=== PATIENT | male | born 1955 | race Caucasian/White ===

== ENCOUNTER 2023-09-13 23:53 | Inpatient (IN) | payer OTHER, MEDICAID, SELFPAY ==
--- NOTE | ~2023-09-13 | CT_ITS ---
EXAMINATION: CT HEAD WITHOUT CONTRAST CLINICAL INFORMATION: Headache. COMPARISON: None. TECHNIQUE: Multidetector volumetric imaging of the head was performed without intravenous contrast material. This CT examination was performed using dose optimization techniques as appropriate, variously including the following: *Automated exposure control *Adjustment of mA and/or kV according to patient size (this includes techniques or standardized protocols for targeted exams where dose is matched to indication/reason for exam; i.e. extremities or head) *Use of iterative reconstruction technique Dose: 715 mGy-cm FINDINGS: There is no evidence of acute intracranial hemorrhage or territorial infarction. No abnormal mass-effect or midline shift is seen. Pyle to white matter differentiation is well preserved. No extra axial fluid collections. There is commensurate enlargement of the ventricles and extraaxial CSF spaces consistent with mild volume loss. A few foci of hypoattenuation in the subcortical and periventricular white matter are most consistent with chronic microangiopathic changes. Calcific atherosclerosis is present within the cavernous segments of the internal carotid arteries. The soft tissues and osseous structures are normal. The sinuses and mastoid air cells are clear. CT/CT head/brain wo IV con IMPRESSION: 1. No acute intracranial pathology. 2. Mild cerebral volume loss and chronic white matter microangiopathy.
--- NOTE | ~2023-09-13 | XR_ITS ---
EXAMINATION: XR CHEST CLINICAL INFORMATION: Shortness of breath COMPARISON: None available. TECHNIQUE: Frontal view of the chest was obtained. FINDINGS: The lungs are hypoinflated. The heart size within normal limits allowing for technique. No significant abnormality is noted involving the heart, lungs, mediastinum, bony thorax or soft tissues. XR/XR chest 1V IMPRESSION: Unremarkable examination.
--- NOTE | ~2023-09-13 | US_ITS ---
EXAMINATION: US VENOUS ULTRASOUND WITH DOPPLER LOWER EXTREMITY, BILATERAL CLINICAL INFORMATION: Edema COMPARISON: None available. TECHNIQUE: Ultrasound of the deep veins is performed from the hip to the calf with compression sonography and color and pulse Doppler assessment. Spectral analysis with color-flow imaging is performed. FINDINGS: RIGHT: There is normal venous compression and respiratory variation and augmented flow. The visualized common femoral vein, superficial femoral vein, and profunda femoral vein and posterior tibial vein shows no evidence of deep venous thrombosis however the popliteal vein and peroneal veins were not imaged limiting evaluation. There is no significant popliteal fossa cyst. LEFT: There is normal venous compression and respiratory variation and augmented flow. The visualized common femoral vein, superficial femoral vein, profunda femoral vein, and popliteal vein, shows no evidence of deep venous thrombosis, however the posterior tibial and peroneal veins were not visualized limiting evaluation. There is no significant popliteal fossa cyst. Few left-sided inguinal nodes are seen measuring up to 2.4 x 0.6 x 1.7 cm maintaining normal hilar architecture not pathologically enlarged by short axis criteria. Subcutaneous edema in the left calf. US/US venous duplex LE BI IMPRESSION: 1. No DVT demonstrated in the visualized bilateral lower extremity veins, however the right popliteal, left posterior tibial and bilateral peroneal veins were not visualized limiting evaluation. 2. Subcutaneous edema in the left calf. 3. Prominent left-sided inguinal nodes not enlarged by short axis criteria. This exam was submitted to the interpreting radiologist for interpretation on 09/18/2023 10:16 AM.
--- NOTE | ~2023-09-13 | CT_ITS ---
EXAMINATION: CT CHEST WITHOUT CONTRAST CLINICAL INFORMATION: Aspiration intubated worsening hypoxia COMPARISON: CT abdomen from 09/14/2023 TECHNIQUE: Multidetector volumetric CT imaging of the chest was done. Axial MIP volume rendering provided. Sagittal and coronal reformatted images were obtained. , Chest radiograph from 09/14/[address] examination was performed using dose optimization techniques as appropriate, variously including the following: *Automated exposure control *Adjustment of mA and/or kV according to patient size (this includes techniques or standardized protocols for targeted exams where dose is matched to indication/reason for exam; i.e. extremities or head) *Use of iterative reconstruction technique DLP: 283.9 mGy-cm FINDINGS: LUNGS/PLEURA: Excessive respiratory motion artifact limits evaluation. Small bilateral pleural effusions with subjacent atelectasis. Central airways are patent. Endotracheal tube terminates approximately 5.2 cm from the level of mari. No pneumothorax. MEDIASTINUM: Heart is not enlarged. No pericardial effusion. Coronary artery calcifications are noted. Aorta is nonaneurysmal and demonstrates atherosclerotic calcifications main pulmonary artery is enlarged suggesting also pulmonary arterial hypertension. A few mildly prominent though nonenlarged mediastinal lymph nodes are visualized. Visualized portions of the thyroid are unremarkable. Enteric tube courses through the thoracic esophagus. AXILLA: No lymphadenopathy. UPPER ABDOMEN: Enteric tube visualized along the gastroesophageal junction, its distal tip is not included in the [id number]. Liver appears enlarged with hepatic steatosis. OSSEOUS STRUCTURES: Unremarkable. CT/CT chest wo IV con IMPRESSION: 1. Excessive respiratory motion artifact limits evaluation. 2. Small bilateral pleural effusions with subjacent atelectasis. 3. Endotracheal tube terminates approximately 5.2 cm from the level of mari. 4. Main pulmonary artery is enlarged suggesting evidence of pulmonary arterial hypertension. 5. Enteric tube visualized along the gastroesophageal junction, its distal tip is not included in the [id number].
--- NOTE | ~2023-09-13 | XR_ITS ---
EXAMINATION: PORTABLE CHEST 1 VIEW CLINICAL INFORMATION: s/p ett placement. COMPARISON: 09/14/2023. TECHNIQUE: Portable frontal view of the chest was obtained. FINDINGS: Patient is hypoexpanded and rotated to the left. Endotracheal tube tip approximately 4 cm above the mari. Nasogastric tube below the diaphragm with the tip likely overlying the antrum of the stomach. Lungs are hypoexpanded with basilar markings more likely due to atelectasis. Central vascular prominence likely in part related to the degree of hypoexpansion. No pneumothorax. XR/XR chest 1V IMPRESSION: Intubated. Hypoexpanded. Basilar markings more likely due to atelectasis in part related to the degree of hypoexpansion.
--- NOTE | ~2023-09-13 | CT_ITS ---
EXAMINATION: CT ABDOMEN AND PELVIS WITH CONTRAST CLINICAL INFORMATION: Right upper quadrant/epigastric pain COMPARISON: None available. TECHNIQUE: Multidetector volumetric images were obtained from the superior aspect of the liver through the pubic symphysis following administration 100 mL of Omnipaque 350 intravenous contrast. Sagittal and coronal reformatted images were obtained on the technologist's workstation. Oral contrast: No This CT examination was performed using dose optimization techniques as appropriate, variously including the following: *Automated exposure control *Adjustment of mA and/or kV according to patient size (this includes techniques or standardized protocols for targeted exams where dose is matched to indication/reason for exam; i.e. extremities or head) *Use of iterative reconstruction technique DLP: 1449 mGy-cm FINDINGS: LUNG BASES: Coronary calcium is present Some bibasilar atelectasis is seen. Calcified granuloma is seen in the right middle lobe. LIVER, GALLBLADDER, AND BILIARY TREE: The liver is enlarged measuring 18.5 cm in cephalocaudad dimension with marked hepatic steatosis. There is focal fatty sparing seen around the gallbladder and meliza hepatis.. No concerning focal hepatic lesion or biliary ductal dilatation is present. The gallbladder is unremarkable with no evidence of radiopaque gallstones, gallbladder wall thickening, or obvious pericholecystic inflammatory changes. PANCREAS: There is fatty infiltration of the pancreas. No evidence of pancreatitis, ductal dilatation, calcifications or masses. SPLEEN: Unremarkable. ADRENAL GLANDS: Unremarkable. KIDNEYS AND URETERS: The kidneys are normal in size, shape, and attenuation. No hydronephrosis, hydroureter, or calculi seen. No perinephric stranding. BLADDER: Unremarkable. GASTROINTESTINAL TRACT: The small and large bowel are unremarkable. The appendix is unremarkable. ABDOMINAL WALL: No significant hernia is appreciated. Some tiny inguinal hernias are seen containing only fat. LYMPH NODES: Normal. VASCULAR: Unremarkable. PELVIC VISCERA: The prostate and seminal vesicles are unremarkable. OSSEOUS STRUCTURES: Biconvex thoracolumbar scoliosis is present along with moderate to marked degenerative changes throughout the spine. There is osseous fusion of T8 and T9. No bony destructive lesions or acute fractures seen. CT/CT abdomen pelvis w IV con IMPRESSION: 1. A cause for the patient's right upper quadrant pain has not been found. 2. Incidental note made of an enlarged fatty liver, fatty infiltration of the pancreas, scoliosis and degenerative changes in the spine. Fleischner guidelines were followed.
--- NOTE | ~2023-09-13 | CT_ITS ---
EXAMINATION: CT HEAD WITHOUT CONTRAST CLINICAL INFORMATION: Encephalopathy COMPARISON: CT head from 09/14/2023 TECHNIQUE: Contiguous axial imaging was performed from the skull base to vertex without intravenous administration of contrast. This CT examination was performed using dose optimization techniques as appropriate, variously including the following: *Automated exposure control *Adjustment of mA and/or kV according to patient size (this includes techniques or standardized protocols for targeted exams where dose is matched to indication/reason for exam; i.e. extremities or head) *Use of iterative reconstruction technique DLP: 891.7 mGy-cm FINDINGS: There is no evidence of acute intracranial hemorrhage or territorial infarction. Chronic white matter small vessel ischemic changes. Cerebral atrophy with commensurate ventricular changes. No abnormal mass effect or midline shift is seen. Pyle to white matter differentiation is well preserved. No extra-axial fluid collections are identified. The ventricles are normal in size. There is no abnormal attenuation within the brain parenchyma. The osseous structures and soft tissues are normal. The mastoid air cells and visualized portions of the paranasal sinuses are well aerated. Partially visualized endotracheal and enteric tubes. CT/CT head/brain wo IV con IMPRESSION: 1. No acute intracranial pathology. 2. Chronic white matter small vessel ischemic changes.
--- NOTE | 2023-09-13 23:58 | ECG_ITS ---
Test Reason : ETOH Blood Pressure : / mmHG Vent. Rate : 100 BPM Atrial Rate : 100 BPM P-R Int : 178 ms QRS Dur : 070 ms QT Int : 346 ms P-R-T Axes : -03 019 036 degrees QTc Int : 446 ms Sinus rhythm with Premature atrial complexes Possible Anterior infarct , age undetermined Abnormal ECG No previous ECGs available Referred By: Joana Spangler Electronically Signed By:KATRIN MERRITT MD
[2023-09-14] VITALS (12 sets, daily range): BP systolic 97–204; BP diastolic 47–104; PULSE 98–110; RESP 14–35; TEMP 36.3–37.1; O2SAT 92–98; BMI 44.3
--- NOTE | 2023-09-14 00:42 | PC.NURSE ---
Patient BIB [facility] from [facility]. The staff contacted EMS d/t patient being intoxicated. Patient has history of TBI, PTSD, Panic Disorder. Patient admits drinking 2 sleeves of fire balls every day. Patient reports he was not able to sleep for 5 days. Patient reports Ativan helps him to relax and sleep. Patient reports not taking prescribed home medications. Patient uses CPAP at night. Patient denies SI/HI. Patient changed into a hospital attire with assistance of security, belongings placed into locker 12. EKG completed and reviewed by MD. Patient placed on alarm security or surveillance monitor. VSS.
--- NOTE | 2023-09-14 01:02 | ED.ALCOHOL ---
HPI - Alcohol General Chief Complaint: ETOH/Substance Use Stated Complaint: ETOH? Mental Health Eval Time Seen by Provider: 09/14/23 00:55 Source: patient and EMS Mode of arrival: EMS Limitations: other (Intoxicated) History of Present Illness ED Provider: Dr. Sindy Yi HPI narrative: Patient comes to the emergency room by ambulance. Patient was found in the lobby of his housing facility intoxicated. Patient admits that he drinks to sleeves of fireball is a every day. Patient reports that he has not been able to sleep for several days. Unclear what patient is not taking his prescribed medications patient denies SI or HI. Related Data Allergies Allergy/AdvReac Type Severity Reaction Status Date / Time No Known Allergies Allergy Verified 09/14/23 00:15 Review of Systems Review of Systems: Constitutional : No Weight loss, No Fever, No Chills, No Night Sweats, No Fatigue, No Malaise ENT/Mouth : No Hearing loss, No Ear Pain, No Nasal Congestion, No Sinus Pain, No Hoarseness, No sore throat, No Rhinorrhea, No Swallowing Difficulty Eyes: No Eye Pain, No Swelling, No Redness, No Foreign Body, No Discharge, No Vision Changes Cardiovascular : No Chest Pain, No SOB, No Dyspnea on Exertion, No Orthopnea, No Edema, No Palpitations Respiratory : No Cough, No Sputum, No Wheezing, No Smoke Exposure, No Dyspnea Gastrointestinal : No Nausea, No Vomiting, No Diarrhea, No Constipation, No abdominal Pain, No Hematochezia, No Melena Genitourinary : no irregular bleeding, No Dysuria, No Urinary Frequency, No Hematuria, No Urinary Incontinence, No Urgency, No Flank Pain, No Urinary Flow Changes, No Hesitancy Musculoskeletal : No joint pain, No Myalgias, No Joint Swelling Skin : No Skin Lesions, No rash Neuro : No Weakness, No Numbness, No Paresthesias, No Loss of Consciousness, No Dizziness, No Headache Psych : Complaining of insomnia, admits to alcohol drinking daily, denies SI or HI Heme/Lymph: No Bruising, No Bleeding,No Lymphadenopathy Endocrine : No Polyuria, No Polydipsia, No Temperature Intolerance PMF Past Medical History Medical History Panic disorder Traumatic brain injury ETOH abuse Social History Social History Smoked in Last 30 Days: Yes Use of substances other than those prescribed or required for medical reasons: No Do you have a plan to hurt others: No Plan Physical Exam ED Vital Signs: Vital Signs - 24 hr 09/14/23 00:14 Temperature 98.2 F Pulse Rate 99 Respiratory Rate 16 Blood Pressure 144/92 H Pulse Oximetry 95 Oxygen Delivery Method Room Air BMI result Body Mass Index 44.3 Const Other: Appearance: Alert. Oriented X2, seems intoxicated Eyes: Pupils equal, round and reactive to light. ENT: Pharynx normal. Neck: Normal inspection. Neck supple. No lymph nodes noted. No crepitus CVS: Normal heart rate and rhythm. Pulses normal. Normal S1 and S2 Respiratory: No respiratory distress. Breath sounds normal. No Wheezing. No rales Abdomen: Soft and nontender. No rigidity. No distention. Skin: Skin warm and dry. Normal skin color. Normal skin turgor. Extremities: No lower extremity edema. No Lacerations. No Rash Neuro: Oriented X 3. No motor deficit. No sensory deficit. Moving all extremities. No slurred speech. CN 2 through 12 grossly intact Psych: calm, cooperative, anxious Course Course Course Narrative: -patient seems intoxicated -head CT and labs pending -metabolize to freedom, then reassess if patient needs to be seen by the care team -sign-out given to my colleague Dr. Peterson Medical Decision Making Medical Decision Making [facility] Narrative: -my interpretation of head CT: No intracranial bleed. Radiology report pending -all of patient's labs pending -radiology report, no intracranial bleed -patient requesting 1 tablet of Ativan and Tylenol -plan: Follow-up with labs, metabolize to freedom, likely discharge Differential Diagnosis Differential Diagnoses: The differential diagnosis associated with the presentation includes (Alcohol intoxication, polysubstance abuse) Admission/Observation Consideration of admission/observation: Escalation of care including admission/observation considered (Patient is under physician observation waiting to become sober) Independent Interpretation I performed an independent interpretation of an: CT Scan Radiology Impression Discussion of test interpretation with radiology: I have reviewed the radiologist's reading. Radiologist Impression: FINDINGS: There is no evidence of acute intracranial hemorrhage or territorial infarction. No abnormal mass-effect or midline shift is seen. Pyle to white matter differentiation is well preserved. No extra axial fluid collections. There is commensurate enlargement of the ventricles and extraaxial CSF spaces consistent with mild volume loss. A few foci of hypoattenuation in the subcortical and periventricular white matter are most consistent with chronic microangiopathic changes. Calcific atherosclerosis is present within the cavernous segments of the internal carotid arteries. The soft tissues and osseous structures are normal. The sinuses and mastoid air cells are clear. CT/CT head/brain wo IV con IMPRESSION: 1. No acute intracranial pathology. 2. Mild cerebral volume loss and chronic white matter microangiopathy. Discharge Plan Discharge Clinical Impression: Alcoholic intoxication Patient Disposition: Still a Patient
[2023-09-14] MEDS: LORazepam 1 MG TABLET PO (01:55)
[2023-09-14] MEDS: Acetaminophen 325 MG TABLET 975 MG PO (01:55)
[2023-09-14 01:56] LABS: MANUAL DIFF FLAG NO
[2023-09-14 01:58] LABS: Basophils Absolute Auto 0.1 X10*3/uL (0.0-0.2); Basophils Percent Auto 1.5 % (0-2); Eosinophils Absolute Auto 0.1 X10*3/uL (0.0-0.4); Eosinophils Percent Auto 3.1 % (0-4); Hematocrit 41.7 % (42.0-52.0); Hemoglobin 14.4 g/dl (14.0-18.0); Imm Gran Abs Auto 0.03 X10*3/uL (0.00-0.03); Imm Gran Pct Auto 0.8 % (0.0-0.4); Lymphocytes Absolute Auto 2.3 X10*3/uL (1.2-4.9); Lymphocytes Percent Auto 57.8 % (20-40); Mean Corpuscular HGB Conc 34.5 g/dl (31.0-36.0); Mean Corpuscular Hemoglobin 30.1 pg (27.0-33.0); Mean Corpuscular Volume 87.1 fL (80.0-98.0); Mean Platelet Volume 9.5 fL (9.4-12.4); Monocytes Absolute Auto 0.4 X10*3/uL (0.1-1.2); Monocytes Percent Auto 9.4 % (2-11); Neutrophils Absolute Auto 1.1 x10*3/uL (2.0-8.3); Neutrophils Percent Auto 27.4 % (45-73); Platelet Count 241 X10*3/uL (160-400); Red Blood Count 4.79 X10*6/uL (4.60-5.80); Red Cell Distribution Width 15.1 % (11.0-16.0); White Blood Count 3.9 X10*3/uL (4.8-10.8)
--- NOTE | 2023-09-14 01:58 | PC.NURSE ---
Patient medicated per MAR, patient takes medications whole with water, no trouble swallowing noted.1:1 sitter at bedside. Plan of care ongoing.
[2023-09-14 02:08] LABS: Amphetamine Screen Urine Not Detected (Not Detect); Barbiturates, Urine POSITIVE (Not Detect); Benzodiazepines Screen Urine Not Detected (Not Detect); Buprenorphine Scr Positive (Not Detect); Cannabinoid Screen Urine Not Detected (Not Detect); Cocaine Screen Urine Not Detected (Not Detect); Fentanyl, urine Not Detected (Not Detect); Methadone Screen, Urine Not Detected (Not Detect); Opiate Screen Urine Not Detected (Not Detect); Oxycodone Screen Urine Not Detected (Not Detect); Phencyclidine Screen Urine Not Detected (Not Detect)
[2023-09-14 02:14] LABS: Alanine Aminotransferase 131 U/L (0-40); Albumin Level 3.4 g/dL (3.5-5.0); Alkaline Phosphatase 197 U/L (39-117); Anion Gap 18 (12-20); Aspartate Amino Transferase 184 U/L (5-37); Bilirubin Total 0.5 mg/dL (0.0-1.0); Blood Urea Nitrogen 3 mg/dL (9-16); Calcium 8.4 mg/dL (8.4-10.2); Carbon Dioxide 25 mmol/L (22-29); Chloride 107 mmol/L (96-108); Creatinine Clr Calc Pharmacy 150.4; Estimated Glomerular Filt Rate > 60; Ethanol 259 mg/dL; Glucose Random 105 mg/dL (60-115); Magnesium 1.8 mg/dL (1.6-2.6); Potassium 3.7 mmol/L (3.3-5.1); Sodium 146 mmol/L (135-145); Total Protein 6.5 g/dL (6.5-8.0)
[2023-09-14] MEDS: Omeprazole 40 MG CAPSULE.DR PO (03:34)
[2023-09-14] MEDS: Magnesium Hydrox/Alum Hydrox 30 ML ORAL.SUSP PO (03:34)
[2023-09-14] MEDS: LORazepam 1 MG TABLET 2 MG PO ×2 (04:36→08:37)
[2023-09-14] MEDS: Thiamine HCL 100 MG TABLET PO (04:39)
--- NOTE | 2023-09-14 09:00 | PC.NURSE ---
Assumed care for pt @ 700. Pt A&O4. Pt c/o abdominal pain, headache, cold sweats with chills, overall not feeling good . Remains on a CIWA scale. Score 0f 16 @8am CIWA. 2mg PO PRN Ativan Given.
--- NOTE | 2023-09-14 09:31 | ECG_ITS ---
Test Reason : CHEST PAIN Blood Pressure : / mmHG Vent. Rate : 105 BPM Atrial Rate : 105 BPM P-R Int : 154 ms QRS Dur : 072 ms QT Int : 342 ms P-R-T Axes : 034 004 027 degrees QTc Int : 452 ms Sinus tachycardia Premature atrial complexes Cannot rule out Anterior infarct (cited on or before 14-SEP-2023) Abnormal ECG When compared with ECG of 14-SEP-2023 00:11, No significant changes seen Referred By: Andria Clifton Electronically Signed By:JANUSZ GARCIA
[2023-09-14 09:40] LABS: Lipase 12 U/L (8-78)
[2023-09-14] MEDS: LORazepam 2 MG/ML VIAL IVPUSH (09:42)
[2023-09-14] MEDS: 0.9 % Sodium Chloride 1,000 ML 999 ML IV (09:48)
[2023-09-14 10:00] LABS: ABG Base Excess 2.6 mmol/L; ABG HCO3 25 mmol/L (22-26); ABG pCO2 31 mmHg (32-45); ABG pO2 81 mmHg (83-108)
[2023-09-14] MEDS: iohexoL 350 MG/ML 100 ML INFUS..BTL IV (10:11)
[2023-09-14] MEDS: Albuterol Sulfate 2.5 MG, Albuterol/Iprat 2.5/0.5MG 3 ML 3 ML INHALE (10:31)
[2023-09-14] MEDS: PHENobarbitaL sodium 130 MG/ML IM ONCE 274 MG IM (10:59)
--- NOTE | 2023-09-14 11:32 | PM.IMHP ---
History of Present Illness Date of Service: 09/14/23 Chief Complaint: alcohol intoxication, withdrawal 67 year old male with TBI, PTSD, panic disorder who drinks rather heavily up to 2 sleeve of fire balls a day. He was found on the floor at the [place] of his house, intoxiciated. He reports 5 days of insomnia, and reporting some abdominal pain. In the ED noted to be tachycardia, tremoulous and scoring greater than 15 on CIWA score. Also noted to wheezing. He has been given ativan ON LICENSE OF [facility] Medical History Panic disorder Traumatic brain injury ETOH abuse Social History Household Members: None Housing: Condominium Do you presently have visiting nurse or other home services: No Patient Tobacco Use Status: Current everyday Tobacco user Tobacco use type: Cigarette Cigarettes Per Day: 20 Smoked in Last 30 Days: Yes Patient Interested in Nicotine Replacement: No Use of substances other than those prescribed or required for medical reasons: Refusing to respond Currently Displaying Signs/Symptoms of Drug Intoxication Withdrawal: Yes Have you been hit, kicked, punched, or otherwise hurt by someone within the past year? If so, by whom?: No Is there a partner from a previous relationship who is making you feel unsafe now?: No Are you made to feel afraid or neglected: No Advance Directives: No Advance Directives Information Provided: No Do you have a plan to hurt others: No Plan Meds Allergies Allergy/AdvReac Type Severity Reaction Status Date / Time No Known Allergies Allergy Verified 09/14/23 00:15 Active Medications: Current Medications Lorazepam (Lorazepam 1 Mg Tablet) 2 mg PO RQ4H WHILE AWAKE PRN PRN Reason: Alcohol Withdrawal Pharmacy Consult (Consult Rx Etoh Phenob Im/Po) 1 each MISCELLANE ONCE PRN; Protocol PRN Reason: Consult order Phenobarbital (Phenobarbital 15 Mg Tablet) 45 mg PO BID [facility]; Protocol Stop: 09/16/23 21:01 Phenobarbital (Phenobarbital 30 Mg Tablet) 30 mg PO BID [facility]; Protocol Stop: 09/18/23 21:01 Phenobarbital (Phenobarbital 30 Mg Tablet) 30 mg PO DAILY [facility]; Protocol Stop: 09/20/23 09:01 Phenobarbital Sodium (Phenobarbital Sodium 130 Mg/Ml Vial Im Q3hx2) 205 mg IM Q3H [facility]; Protocol Stop: 09/14/23 15:31 Home Medications ?Medication ?Instructions ?Recorded ?Confirmed ?Last Taken ?Type albuterol sulfate 90 mcg/actuation 2 puff inhalation Q6H PRN 09/14/23 09/14/23 Unknown History aerosol inhaler Shortness Of Breath Or Wheezing buprenorphine 8 mg-naloxone 2 mg 1 tab sublingual TID 09/14/23 09/14/23 Unknown History sublingual tablet divalproex 500 mg tablet,extended 2,000 mg PO BEDTIME 09/14/23 09/14/23 Unknown History release 24 hr fluticasone 500 mcg-salmeterol 50 1 inh inhalation BID 09/14/23 09/14/23 Unknown History mcg/dose blistr powdr for inhalation (Advair Diskus) folic acid 1 mg tablet 1 mg PO DAILY 09/14/23 09/14/23 Unknown History guaifenesin 600 mg tablet, 600 mg PO BID 09/14/23 09/14/23 Unknown History extended release 12 hr hydroxyzine HCl 50 mg tablet 50 mg PO TID PRN Anxiety 09/14/23 09/14/23 Unknown History losartan 100 mg tablet 100 mg PO DAILY 09/14/23 09/14/23 Unknown History melatonin 5 mg tablet 5 mg PO BEDTIME PRN Sleep 09/14/23 09/14/23 Unknown History mirtazapine 7.5 mg tablet 7.5 mg PO BEDTIME 09/14/23 09/14/23 Unknown History multivitamin 1 tab PO DAILY 09/14/23 09/14/23 Unknown History naloxone 4 mg/actuation nasal spray 4 mg intranasal Q3M PRN Opioid 09/14/23 09/14/23 Unknown History Overdose paroxetine HCl 20 mg tablet 20 mg PO BEDTIME 09/14/23 09/14/23 Unknown History pyridoxine (vitamin B6) 50 mg 50 mg PO DAILY 09/14/23 09/14/23 Unknown History tablet sennosides 8.6 mg tablet (senna) 17.2 mg PO BEDTIME 09/14/23 09/14/23 Unknown History thiamine HCl (vitamin B1) 100 mg 100 mg PO DAILY 09/14/23 09/14/23 Unknown History tablet tirzepatide 2.5 mg/0.5 mL 2.5 mg subcut QWEEK 09/14/23 09/14/23 Unknown History subcutaneous pen injector Physical Exam Vital Signs and Narrative: Vital Signs: Last Vital Signs Temp 98.7 F 09/14/23 08:35 Pulse 103 H 09/14/23 10:31 Resp 32 H 09/14/23 10:31 BP 153/72 H 09/14/23 10:23 Pulse Ox 95 09/14/23 10:23 O2 Del Method Nasal Cannula 09/14/23 10:23 O2 Flow Rate 2 09/14/23 10:23 BMI result Body Mass Index 44.3 Results Labs 09/14/23 01:51 09/15/23 08:12 Labs: Laboratory Results - last 24 hr 09/14/23 09/14/23 09/14/23 01:44 01:51 09:49 MCV 87.1 MCH 30.1 MCHC 34.5 RDW 15.1 Plt Count 241 MPV 9.5 Immature Gran % (Auto) 0.8 H Neut % (Auto) 27.4 L Lymph % (Auto) 57.8 H Throckmorton % (Auto) 9.4 Eos % (Auto) 3.1 Baso % (Auto) 1.5 Lymph # (Auto) 2.3 Throckmorton # (Auto) 0.4 Eos # (Auto) 0.1 Baso # (Auto) 0.1 Abs Immat Gran (auto) 0.03 Absolute Neuts (auto) 1.1 L Absolute Nucleated RBC 0.000 Nucleated RBC % (auto) 0.0 O2 Saturation 98.0 ABG pH at Pt Temp 7.50 H ABG pCO2 at Pt Temp 31 L ABG pO2 at Pt Temp 81 L ABG HCO3 25 ABG Base Excess (Actual) 2.6 Anion Gap 18 Estim Creat Clear Calc 150.4 Estimated GFR > 60 Random Glucose 105 Calcium 8.4 Magnesium 1.8 Total Bilirubin 0.5 AST 184 H ALT 131 H Alkaline Phosphatase 197 H Troponin I High Sens 5.0 Total Protein 6.5 Albumin 3.4 L Lipase 12 Urine Opiates Screen Not Detected Ur Buprenorphine Scrn Positive H Ur Oxycodone Screen Not Detected Urine Methadone Screen Not Detected Urine Fentanyl Screen Not Detected Ur Barbiturates Screen POSITIVE H Ur Phencyclidine Scrn Not Detected Ur Amphetamines Screen Not Detected U Benzodiazepines Scrn Not Detected Urine Cocaine Screen Not Detected U Marijuana (THC) Screen Not Detected Ethyl Alcohol 259 Imaging Radiologist's Impressions: Impressions Head CT 09/14/23 01:11 IMPRESSION: 1. No acute intracranial pathology. 2. Mild cerebral volume loss and chronic white matter microangiopathy. Abdomen/Pelvis CT 09/14/23 10:15 IMPRESSION: 1. A cause for the patient's right upper quadrant pain has not been found. 2. Incidental note made of an enlarged fatty liver, fatty infiltration of the pancreas, scoliosis and degenerative changes in the spine. Fleischner guidelines were followed. Chest X-Ray 09/14/23 10:15 IMPRESSION: Unremarkable examination. Assessment and Plan (1) Alcohol withdrawal: Status: Acute Plan 67 year old male with PTSD, panic disorder, alcohol dpendency here with Alcohol withdrawal--treat with phenobarbital, hydrate, thiamine and folate suplement, addiction med consult. Need close monitor and if decompensate will need to be trasnfer to ICU Abdominal pain--likely gastritis, CT shows no acute findin, symptomatic treatment pepcid and pain medication prn Panic disorder/anxiety, no standing meds, hydroxyzone morbidid obesity--weight loss advised copd Quality Stroke Does the patient have a stroke diagnosis?: No VTE Prior VTE?: No VTE Risk Level:: Medical - moderate - high VTE Device Contraindication: Treatment Not Indicated VTE Drug Contraindication: N/A - Med Ordered
[2023-09-14] MEDS: ondansetron HCL 4 MG/2 ML VIAL IVPUSH (13:14)
[2023-09-14] MEDS: methylPREDNISolone Sod Succ 125 MG/2 ML VIAL IVPUSH (13:14)
[2023-09-14] MEDS: PHENobarbitaL sodium 130 MG/ML VIAL IM Q3Hx2 205 MG IM ×2 (13:14→16:24)
[2023-09-14] MEDS: Calcium Carbonate 750 MG TAB.CHEW PO (14:04)
[2023-09-14] MEDS: Acetaminophen 325 MG TABLET 650 MG PO (14:05)
--- NOTE | 2023-09-14 14:05 | PC.NURSE ---
pt c/o 10/24 abdominal pain. Pt requesting tylenol, a heat pack, and position change at this time for pain management.
--- NOTE | 2023-09-14 15:08 | PHA.MEDREC ---
Pharmacy Consult ? Medication Reconciliation Pharmacy has completed the medication reconciliation. Called [place] for List.
[2023-09-14] MEDS: hydrOXYzine HCL 25 MG TABLET PO (15:15)
[2023-09-14] MEDS: Folic Acid 1 MG TABLET PO (15:15)
[2023-09-14] MEDS: Thiamine HCL 500 MG in 0.9 % Sodium Chloride 100 ML 208 MG IV (16:25)
--- NOTE | 2023-09-14 16:56 | MHC.EDTECH ---
Assisted patient to commode twice, first time he only was able to urinate, second time he had a loose stool bowl movement and urinated.
[2023-09-14] MEDS: Mirtazapine 7.5 MG TABLET PO (20:35)
[2023-09-14] MEDS: guaiFENesin LA 600 MG TAB.ER.12H PO (20:35)
[2023-09-14] MEDS: PARoxetine HCL 20 MG TABLET PO (20:36)
[2023-09-14] MEDS: Divalproex Sodium ER 500 MG TAB.ER.24H 2000 MG PO (20:36)
[2023-09-14] MEDS: PHENobarbitaL sodium 130 MG/ML VIAL IM (20:43)
[2023-09-14] MEDS: Lactated Ringers 1,000 ML 125 ML IVCONT (20:51)
[2023-09-14] MEDS: Buprenorphine/Naloxone 8/2 mg TAB.SUBL 1 TAB SUBLINGUAL (22:24)
[2023-09-15] VITALS (9 sets, daily range): BP systolic 134–174; BP diastolic 70–95; PULSE 88–98; RESP 20; TEMP 36.1–36.5; O2SAT 90–94
[2023-09-15] MEDS: LORazepam 2 MG/ML VIAL IVPUSH ×2 (00:11→21:14)
[2023-09-15] MEDS: Thiamine HCL 500 MG in 0.9 % Sodium Chloride 100 ML 208 MG IV ×2 (02:39→15:09)
[2023-09-15] MEDS: Lactated Ringers 1,000 ML 125 ML IVCONT ×2 (04:51→13:23)
[2023-09-15 08:42] LABS: Anion Gap 19 (12-20); Blood Urea Nitrogen 6 mg/dL (9-16); Calcium 8.7 mg/dL (8.4-10.2); Carbon Dioxide 22 mmol/L (22-29); Chloride 104 mmol/L (96-108); Creatinine Clr Calc Pharmacy 139.7; Estimated Glomerular Filt Rate > 60; Glucose Random 105 mg/dL (60-115); Potassium 4.5 mmol/L (3.3-5.1); Sodium 140 mmol/L (135-145)
[2023-09-15] MEDS: Multivitamin TABLET 1 TAB PO (08:58)
[2023-09-15] MEDS: Pyridoxine HCl (Vitamin B6) 50 MG TABLET PO (08:58)
[2023-09-15] MEDS: guaiFENesin LA 600 MG TAB.ER.12H PO ×2 (08:58→19:58)
[2023-09-15] MEDS: Thiamine HCL 100 MG TABLET PO (08:58)
[2023-09-15] MEDS: Buprenorphine/Naloxone 8/2 mg TAB.SUBL 1 TAB SUBLINGUAL ×3 (08:59→19:58)
[2023-09-15] MEDS: Folic Acid 1 MG TABLET PO (08:59)
[2023-09-15] MEDS: PHENobarbitaL 15 MG TABLET 45 MG PO ×2 (08:59→19:58)
[2023-09-15] MEDS: Losartan Potassium 50 MG TABLET 100 MG PO (08:59)
[2023-09-15] MEDS: 0.9 % Sodium Chloride Flush 3 ML SYRINGE IVFLUSH ×3 (08:59→20:02)
[2023-09-15] MEDS: hydrOXYzine HCL 50 MG TABLET PO (13:22)
[2023-09-15] MEDS: Enoxaparin Sodium 40 MG/0.4 ML SYRINGE SUBCUT (13:24)
--- NOTE | 2023-09-15 14:16 | HO.PM.IMPN ---
Subjective Subjective Date of Service: 09/15/23 Interval History: f/u on alcohol withdrawal, Seemed fairly calm this morning without agitation. But later was scoring high on ciwa and anxiour, O2 around 90 on room air but no c/o sob Physical Exam Vital Signs: Vital Signs: Last Vital Signs Temp 97.5 F 09/15/23 12:00 Pulse 92 09/15/23 12:00 Resp 20 09/15/23 12:00 BP 149/89 H 09/15/23 12:00 Pulse Ox 90 L 09/15/23 12:00 O2 Del Method Room Air 09/15/23 12:00 O2 Flow Rate 2 09/14/23 11:30 BMI result Body Mass Index 44.3 Objective Data Active Medications Acetaminophen (Acetaminophen 325 Mg Tablet) 650 mg PO Q6H PRN PRN Reason: Pain, Mild (Pain Scale 1-3), fever or headache Last Admin: 09/14/23 14:05 Dose: 650 mg Documented By: ELIZABETH Albuterol Sulfate (Albuterol Sulfate 90 Mcg 8 Gm Inhaler) 2 puff INHALE Q6H PRN PRN Reason: Shortness Of Breath Or Wheezing Buprenorphine/Naloxone (Buprenorphine/Naloxone 8/2 Mg Tab.Subl) 1 tab SUBLINGUAL TID [facility] Last Admin: 09/15/23 08:59 Dose: 1 tab Documented By: LINDSEY Calcium Carbonate (Calcium Carbonate 750 Mg Tab.Chew) 750 mg PO Q4H PRN PRN Reason: Heartburn Last Admin: 09/14/23 14:04 Dose: 750 mg Documented By: ELIZABETH Divalproex Sodium (Divalproex Sodium Er 500 Mg Tab.Er.24h) 2,000 mg PO BEDTIME [facility] Last Admin: 09/14/23 20:36 Dose: 2,000 mg Documented By: MEGHA Enoxaparin Sodium (Enoxaparin Sodium 40 Mg/0.4 Ml Syringe) 40 mg SUBCUT Q24H [facility] Last Admin: 09/15/23 13:24 Dose: 40 mg Documented By: LINDSEY Fluticasone/Vilanterol (Fluticasone/Vilanterol 200/25 Blst.W.Dev) 1 puff INHALE RDAILY [facility] Last Admin: 09/15/23 11:06 Dose: Not Given Documented By: JV Non-Admin Reason: Med Not Available Comments: pharmacy called Folic Acid (Folic Acid 1 Mg Tablet) 1 mg PO DAILY [facility] Stop: 09/16/23 09:01 Last Admin: 09/15/23 08:59 Dose: 1 mg Documented By: LINDSEY Guaifenesin (Guaifenesin La 600 Mg Tab.Er.12h) 600 mg PO BID [facility] Last Admin: 09/15/23 08:58 Dose: 600 mg Documented By: LINDSEY Hydroxyzine HCl (Hydroxyzine Hcl 25 Mg Tablet) 25 mg PO Q6H PRN PRN Reason: anxiety/restlessness Last Admin: 09/14/23 15:15 Dose: 25 mg Documented By: ELIZABETH Hydroxyzine HCl (Hydroxyzine Hcl 50 Mg Tablet) 50 mg PO TID PRN PRN Reason: Anxiety Last Admin: 09/15/23 13:22 Dose: 50 mg Documented By: LINDSEY Lactated Ringer's (Lr) 1,000 mls @ 125 mls/hr IVCONT .Q8H [facility] Last Admin: 09/15/23 13:23 Dose: 125 mls/hr Documented By: LINDSEY Thiamine HCl 500 mg/ Sodium (Chloride) 105 mls @ 208 mls/hr IV Q12H [facility] Last Infusion: 09/15/23 03:12 Dose: Infused Documented By: MEGHA Levalbuterol HCl (Levalbuterol Hcl 1.25 Mg/3 Ml Vial.Neb) 1.25 mg INHALE Q4H PRN PRN Reason: Shortness of Breath/Wheezing Losartan Potassium (Losartan Potassium 50 Mg Tablet) 100 mg PO DAILY [facility]; Protocol Last Admin: 09/15/23 08:59 Dose: 100 mg Documented By: LINDSEY Magnesium Hydroxide (Milk Of Magnesia 30 Ml Oral.Susp) 30 ml PO DAILY PRN PRN Reason: Constipation Melatonin (Melatonin 3 Mg Tablet) 6 mg PO BEDTIME PRN PRN Reason: Insomnia Mirtazapine (Mirtazapine 7.5 Mg Tablet) 7.5 mg PO BEDTIME [facility] Last Admin: 09/14/23 20:35 Dose: 7.5 mg Documented By: MEGHA Multivitamins/Vitamin C (Multivitamin Tablet) 1 tab PO DAILY [facility] Last Admin: 09/15/23 08:58 Dose: 1 tab Documented By: LINDSEY Paroxetine HCl (Paroxetine Hcl 20 Mg Tablet) 20 mg PO BEDTIME [facility] Last Admin: 09/14/23 20:36 Dose: 20 mg Documented By: MEGHA Pharmacy Consult (Consult Rx Etoh Phenob Im/Po) 1 each MISCELLANE ONCE PRN; Protocol PRN Reason: Consult order Phenobarbital (Phenobarbital 15 Mg Tablet) 45 mg PO BID [facility]; Protocol Stop: 09/16/23 21:01 Last Admin: 09/15/23 08:59 Dose: 45 mg Documented By: LINDSEY Phenobarbital (Phenobarbital 30 Mg Tablet) 30 mg PO BID [facility]; Protocol Stop: 09/18/23 21:01 Phenobarbital (Phenobarbital 30 Mg Tablet) 30 mg PO DAILY [facility]; Protocol Stop: 09/20/23 09:01 Pyridoxine HCl (Pyridoxine Hcl (Vitamin B6) 50 Mg Tablet) 50 mg PO DAILY [facility] Last Admin: 09/15/23 08:58 Dose: 50 mg Documented By: LINDSEY Senna (Sennosides 8.6 Mg Tablet) 17.2 mg PO BEDTIME [facility] Last Admin: 09/14/23 20:39 Dose: Not Given Documented By: MEGHA Non-Admin Reason: Patient Refused Sodium Chloride (0.9 % Sodium Chloride Flush 3 Ml Syringe) 3 ml IVFLUSH QSHIFT [facility] Last Admin: 09/15/23 08:59 Dose: 3 ml Documented By: LINDSEY Thiamine HCl (Thiamine Hcl 100 Mg Tablet) 100 mg PO DAILY [facility] Last Admin: 09/15/23 08:58 Dose: 100 mg Documented By: LINDSEY Labs 09/14/23 01:51 09/15/23 08:12 Labs: Laboratory Results - last 24 hr 09/15/23 08:12 Anion Gap 19 Estim Creat Clear Calc 139.7 Estimated GFR > 60 Random Glucose 105 Calcium 8.7 Assessment and Plan (1) Abdominal pain: Status: Acute (2) COPD exacerbation: Status: Acute (3) Alcohol withdrawal: Status: Acute Plan 67 year old male with PTSD, panic disorder, alcohol dpendency here with Alcohol withdrawal--continue with phenobarbital, hydrate, thiamine and folate suplement, addiction med consult. Abdominal pain--likely gastritis, CT shows no acute findin, symptomatic treatment pepcid and pain medication prn HTN--continue losartan Mood disorder --continue remron, Paxil Panic disorder/anxiety, no standing meds, hydroxyzone morbidid obesity--weight loss advised copd no exacerbation, continue bronchodilators DVT prophylaxis--Lovenox full code inaptient for alcohol withdrawal management with im phenobarbital Quality Stroke Does the patient have a stroke diagnosis?: No VTE Prior VTE?: No VTE Risk Level:: Medical - moderate - high VTE Device Contraindication: Treatment Not Indicated VTE Drug Contraindication: N/A - Med Ordered
--- NOTE | 2023-09-15 14:55 | MHC.CM.PN ---
IMM 09/15/23, reviewed with pt verbally, he could not physically sign due to tremors. Pt lives alone, is connected to [facility] for medical care, PCP is Dr. Hodge at the [facility], and he has a SW at the [facility], Luc[facility]. For DME: CPAP machine, walker, cane, scooter. He does not have in home health services. He does not have transportation home at DC. CM will follow and assist with DC plan.
[2023-09-15] MEDS: Famotidine/PF 20 MG/2 ML VIAL IVPUSH (15:09)
[2023-09-15] MEDS: Furosemide 40 MG/4 ML VIAL IVPUSH (18:09)
[2023-09-15] MEDS: Acetaminophen 325 MG TABLET 650 MG PO (18:37)
[2023-09-15] MEDS: Divalproex Sodium ER 500 MG TAB.ER.24H 2000 MG PO (19:57)
[2023-09-15] MEDS: Mirtazapine 7.5 MG TABLET PO (19:58)
[2023-09-15] MEDS: PARoxetine HCL 20 MG TABLET PO (19:58)
[2023-09-15] MEDS: Sennosides 8.6 MG TABLET 17.2 MG PO (20:55)
[2023-09-16] VITALS (11 sets, daily range): BP systolic 133–172; BP diastolic 77–100; PULSE 72–113; RESP 18–20; TEMP 36.2–36.7; O2SAT 92–97
[2023-09-16] MEDS: Thiamine HCL 500 MG in 0.9 % Sodium Chloride 100 ML 208 MG IV ×2 (02:44→15:17)
[2023-09-16] MEDS: hydrOXYzine HCL 50 MG TABLET PO ×2 (03:34→20:15)
[2023-09-16] MEDS: Acetaminophen 325 MG TABLET 650 MG PO ×3 (03:40→13:50)
[2023-09-16] MEDS: ondansetron HCL 4 MG/2 ML VIAL IVPUSH ×2 (04:12→12:52)
[2023-09-16] MEDS: Fluticasone/Vilanterol 200/25 BLST.W.DEV 1 PUFF INHALE (08:02)
[2023-09-16 08:23] LABS: Anion Gap 14 (12-20); Blood Urea Nitrogen 7 mg/dL (9-16); Calcium 8.9 mg/dL (8.4-10.2); Carbon Dioxide 26 mmol/L (22-29); Chloride 102 mmol/L (96-108); Creatinine Clr Calc Pharmacy 125.3; Estimated Glomerular Filt Rate > 60; Glucose Random 116 mg/dL (60-115); Potassium 3.4 mmol/L (3.3-5.1); Sodium 139 mmol/L (135-145)
[2023-09-16] MEDS: Famotidine/PF 20 MG/2 ML VIAL IVPUSH (09:38)
[2023-09-16] MEDS: PHENobarbitaL 15 MG TABLET 45 MG PO ×2 (09:39→20:15)
[2023-09-16] MEDS: Furosemide 40 MG TABLET PO (09:39)
[2023-09-16] MEDS: Folic Acid 1 MG TABLET PO (09:39)
[2023-09-16] MEDS: Pyridoxine HCl (Vitamin B6) 50 MG TABLET PO (09:39)
[2023-09-16] MEDS: 0.9 % Sodium Chloride Flush 3 ML SYRINGE IVFLUSH ×3 (09:39→20:16)
[2023-09-16] MEDS: guaiFENesin LA 600 MG TAB.ER.12H PO ×2 (09:40→20:15)
[2023-09-16] MEDS: Losartan Potassium 50 MG TABLET 100 MG PO (09:40)
[2023-09-16] MEDS: Thiamine HCL 100 MG TABLET PO (09:40)
[2023-09-16] MEDS: Multivitamin TABLET 1 TAB PO (09:40)
[2023-09-16] MEDS: Buprenorphine/Naloxone 8/2 mg TAB.SUBL 1 TAB SUBLINGUAL ×3 (09:40→20:16)
--- NOTE | 2023-09-16 10:12 | HO.PM.IMPN ---
Subjective Subjective Date of Service: 09/17/23 Interval History: f/u on alcohol withdrawal, he is doing much better this calm, cooperative, no tremors Physical Exam Vital Signs: Vital Signs: Last Vital Signs Temp 97.7 F 09/16/23 07:44 Pulse 97 09/16/23 08:03 Resp 18 09/16/23 08:03 BP 154/92 H 09/16/23 09:40 Pulse Ox 93 09/16/23 07:44 O2 Del Method Room Air 09/16/23 07:44 O2 Flow Rate 2 09/14/23 11:30 BMI result Body Mass Index 44.3 Const: Other: General: AO X 3, no acute distress, cooperative Resp: CTA bilateral CVS: S1,S2,RRR, 1+ edema GI: +BS, NT, no distention Skin: No rash Neuro: motor grossly intact Psych: appropriate affect Objective Data Active Medications Acetaminophen (Acetaminophen 325 Mg Tablet) 650 mg PO Q6H PRN PRN Reason: Pain, Mild (Pain Scale 1-3), fever or headache Last Admin: 09/16/23 09:40 Dose: 650 mg Documented By: LINDSEY Albuterol Sulfate (Albuterol Sulfate 90 Mcg 8 Gm Inhaler) 2 puff INHALE Q6H PRN PRN Reason: Shortness Of Breath Or Wheezing Buprenorphine/Naloxone (Buprenorphine/Naloxone 8/2 Mg Tab.Subl) 1 tab SUBLINGUAL TID [facility] Last Admin: 09/16/23 09:40 Dose: 1 tab Documented By: LINDSEY Calcium Carbonate (Calcium Carbonate 750 Mg Tab.Chew) 750 mg PO Q4H PRN PRN Reason: Heartburn Last Admin: 09/14/23 14:04 Dose: 750 mg Documented By: ELIZABETH Divalproex Sodium (Divalproex Sodium Er 500 Mg Tab.Er.24h) 2,000 mg PO BEDTIME [facility] Last Admin: 09/15/23 19:57 Dose: 2,000 mg Documented By: MEGHA Enoxaparin Sodium (Enoxaparin Sodium 40 Mg/0.4 Ml Syringe) 40 mg SUBCUT Q24H [facility] Last Admin: 09/15/23 13:24 Dose: 40 mg Documented By: LINDSEY Famotidine (Famotidine/Pf 20 Mg/2 Ml Vial) 20 mg IVPUSH DAILY [facility] Last Admin: 09/16/23 09:38 Dose: 20 mg Documented By: LINDSEY Fluticasone/Vilanterol (Fluticasone/Vilanterol 200/25 Blst.W.Dev) 1 puff INHALE RDAILY [facility] Last Admin: 09/16/23 08:02 Dose: 1 puff Documented By: AUNG Furosemide (Furosemide 40 Mg Tablet) 40 mg PO DAILY [facility]; Protocol Last Admin: 09/16/23 09:39 Dose: 40 mg Documented By: LINDSEY Guaifenesin (Guaifenesin La 600 Mg Tab.Er.12h) 600 mg PO BID [facility] Last Admin: 09/16/23 09:40 Dose: 600 mg Documented By: LINDSEY Hydroxyzine HCl (Hydroxyzine Hcl 25 Mg Tablet) 25 mg PO Q6H PRN PRN Reason: anxiety/restlessness Last Admin: 09/14/23 15:15 Dose: 25 mg Documented By: ELIZABETH Hydroxyzine HCl (Hydroxyzine Hcl 50 Mg Tablet) 50 mg PO TID PRN PRN Reason: Anxiety Last Admin: 09/16/23 03:34 Dose: 50 mg Documented By: MEGHA Thiamine HCl 500 mg/ Sodium (Chloride) 105 mls @ 208 mls/hr IV Q12H [facility] Last Infusion: 09/16/23 03:41 Dose: Infused Documented By: MEGHA Levalbuterol HCl (Levalbuterol Hcl 1.25 Mg/3 Ml Vial.Neb) 1.25 mg INHALE Q4H PRN PRN Reason: Shortness of Breath/Wheezing Losartan Potassium (Losartan Potassium 50 Mg Tablet) 100 mg PO DAILY [facility]; Protocol Last Admin: 09/16/23 09:40 Dose: 100 mg Documented By: LINDSEY Magnesium Hydroxide (Milk Of Magnesia 30 Ml Oral.Susp) 30 ml PO DAILY PRN PRN Reason: Constipation Melatonin (Melatonin 3 Mg Tablet) 6 mg PO BEDTIME PRN PRN Reason: Insomnia Mirtazapine (Mirtazapine 7.5 Mg Tablet) 7.5 mg PO BEDTIME [facility] Last Admin: 09/15/23 19:58 Dose: 7.5 mg Documented By: MEGHA Multivitamins/Vitamin C (Multivitamin Tablet) 1 tab PO DAILY [facility] Last Admin: 09/16/23 09:40 Dose: 1 tab Documented By: LINDSEY Ondansetron HCl (Ondansetron Hcl 4 Mg/2 Ml Vial) 4 mg IVPUSH Q6H PRN PRN Reason: Nausea and Vomiting Last Admin: 09/16/23 04:12 Dose: 4 mg Documented By: MEGHA Paroxetine HCl (Paroxetine Hcl 20 Mg Tablet) 20 mg PO BEDTIME [facility] Last Admin: 09/15/23 19:58 Dose: 20 mg Documented By: MEGHA Pharmacy Consult (Consult Rx Etoh Phenob Im/Po) 1 each MISCELLANE ONCE PRN; Protocol PRN Reason: Consult order Phenobarbital (Phenobarbital 15 Mg Tablet) 45 mg PO BID [facility]; Protocol Stop: 09/16/23 21:01 Last Admin: 09/16/23 09:39 Dose: 45 mg Documented By: LINDSEY Phenobarbital (Phenobarbital 30 Mg Tablet) 30 mg PO BID [facility]; Protocol Stop: 09/18/23 21:01 Phenobarbital (Phenobarbital 30 Mg Tablet) 30 mg PO DAILY [facility]; Protocol Stop: 09/20/23 09:01 Pyridoxine HCl (Pyridoxine Hcl (Vitamin B6) 50 Mg Tablet) 50 mg PO DAILY [facility] Last Admin: 09/16/23 09:39 Dose: 50 mg Documented By: LINDSEY Senna (Sennosides 8.6 Mg Tablet) 17.2 mg PO BEDTIME [facility] Last Admin: 09/15/23 20:55 Dose: 17.2 mg Documented By: MEGHA Sodium Chloride (0.9 % Sodium Chloride Flush 3 Ml Syringe) 3 ml IVFLUSH QSHIFT [facility] Last Admin: 09/16/23 09:39 Dose: 3 ml Documented By: LINDSEY Thiamine HCl (Thiamine Hcl 100 Mg Tablet) 100 mg PO DAILY [facility] Last Admin: 09/16/23 09:40 Dose: 100 mg Documented By: LINDSEY Labs 09/14/23 01:51 09/17/23 06:22 Labs: Laboratory Results - last 24 hr 09/16/23 08:02 Anion Gap 14 Estim Creat Clear Calc 125.3 Estimated GFR > 60 Random Glucose 116 H Calcium 8.9 Assessment and Plan (1) Abdominal pain: Status: Acute (2) COPD exacerbation: Status: Acute (3) Alcohol withdrawal: Status: Acute Plan 67 year old male with PTSD, panic disorder, alcohol dependency here with Alcohol withdrawal improving--continue with phenobarbital, hydrate, thiamine and folate supplement, addiction med consult. Abdominal pain--likely gastritis, CT shows no acute finding, symptomatic treatment pepcid and pain medication prn HTN--continue losartan, add Norvasc 5 for better control Fluid and suspected underlying heart failur--got IV lasix, continue PO Lasix, check echo Mood disorder --continue remron, Paxil and hydroxyzine PRN for anxiety Panic disorder/anxiety, no standing meds, hydroxyzine morbidid obesity--weight loss advised copd no exacerbation, continue bronchodilators DVT prophylaxis--Lovenox full code inaptient for alcohol withdrawal management with im phenobarbital out of bed ambulate/PT eval Quality Stroke Does the patient have a stroke diagnosis?: No VTE Prior VTE?: No VTE Risk Level:: Medical - moderate - high VTE Device Contraindication: Treatment Not Indicated VTE Drug Contraindication: N/A - Med Ordered
[2023-09-16] MEDS: amLODIPine Besylate 5 MG TABLET PO (10:44)
--- NOTE | 2023-09-16 11:53 | MHC.RECOVRN ---
Attempted to meet with pt in 479 after consult placed to Addiction Medicine for alcohol use. Pt had been BIB from [facility]. The staff contacted EMS d/t patient being intoxicated. Patient reported drinking 2 sleeves of Fireball daily. Upon evaluation in the ED, pt admitted for treatment of alcohol withdrawal. Pt laying in bed, eyes closed, wakes to voice, appears comfortable. Pt reports he is trying to sleep as he has not been sleeping well and is requesting t/w return tomorrow. Resources left at bedside.
[2023-09-16] MEDS: Enoxaparin Sodium 40 MG/0.4 ML SYRINGE SUBCUT (12:52)
--- NOTE | 2023-09-16 13:11 | HO.WOUND ---
Wound Consult: Initial 67yr old?[place] [facility] See progress notes and H&P for detailed history.? Wound consult placed for right granados wound.? Patient agreeable to assessment and photo documentation.? Right granados assessed - noted for firm edema suspect baseline as no significant hemosiderin staining noted. There is some dry flaking tissue noted - no topical intervention needed. Left leg assessed for two abrasions detailed below. Right Leg Left Lower Leg Etiology: Abrasion Wound Bed: dried scab - appears to be partial thickness tissue loss Drainage / Odor: none noted Edges: ? irregular Capri wound: ? firm edema mild erythema noted - No Fluctuance noted Pain: tenderness reports when cleansed Goals of Treatment: ? moisture wound healing with xeroform and foam dressing Recommendations: 1. Left Granados - Cleanse with NS moist gauze, pat dry. Apply skin prep. Cover wound bed with xeroform and foam dressing. Change every other day. Re-consult wound care Nurse for wound deterioration or wound changes.
[2023-09-16] MEDS: PARoxetine HCL 20 MG TABLET PO (20:15)
[2023-09-16] MEDS: Melatonin 3 MG TABLET 6 MG PO (20:15)
[2023-09-16] MEDS: Divalproex Sodium ER 500 MG TAB.ER.24H 2000 MG PO (20:15)
[2023-09-16] MEDS: Mirtazapine 7.5 MG TABLET PO (20:16)
[2023-09-16] MEDS: Sennosides 8.6 MG TABLET 17.2 MG PO (20:16)
[2023-09-17] VITALS (8 sets, daily range): BP systolic 122–147; BP diastolic 49–78; PULSE 95–118; RESP 16–22; TEMP 36.2–37.2; O2SAT 90–98
--- NOTE | 2023-09-17 | ECG_ITS ---
Test Reason : qtc Blood Pressure : / mmHG Vent. Rate : 102 BPM Atrial Rate : 102 BPM P-R Int : 156 ms QRS Dur : 074 ms QT Int : 342 ms P-R-T Axes : 007 010 013 degrees QTc Int : 445 ms Sinus tachycardia with Premature atrial complexes Nonspecific ST and T wave abnormality Possible Inferior infarct , age undetermined Abnormal ECG No previous ECGs available Referred By: Tyron Infante Electronically Signed By:JANUSZ GARCIA
[2023-09-17] MEDS: ondansetron HCL 4 MG/2 ML VIAL IVPUSH (00:52)
[2023-09-17] MEDS: Thiamine HCL 500 MG in 0.9 % Sodium Chloride 100 ML 208 MG IV ×2 (02:40→14:24)
[2023-09-17] MEDS: LORazepam 2 MG/ML VIAL 1 MG IVPUSH ×2 (05:40→20:01)
[2023-09-17 07:17] LABS: Anion Gap 14 (12-20); Blood Urea Nitrogen 7 mg/dL (9-16); Calcium 8.7 mg/dL (8.4-10.2); Carbon Dioxide 27 mmol/L (22-29); Chloride 98 mmol/L (96-108); Creatinine Clr Calc Pharmacy 132.1; Estimated Glomerular Filt Rate > 60; Glucose Random 97 mg/dL (60-115); Potassium 3.1 mmol/L (3.3-5.1); Sodium 136 mmol/L (135-145)
[2023-09-17] MEDS: Losartan Potassium 50 MG TABLET 100 MG PO (07:57)
[2023-09-17] MEDS: guaiFENesin LA 600 MG TAB.ER.12H PO ×2 (07:57→22:14)
[2023-09-17] MEDS: Famotidine/PF 20 MG/2 ML VIAL IVPUSH (07:57)
[2023-09-17] MEDS: Multivitamin TABLET 1 TAB PO (07:57)
[2023-09-17] MEDS: Pyridoxine HCl (Vitamin B6) 50 MG TABLET PO (07:58)
[2023-09-17] MEDS: Furosemide 40 MG TABLET PO (07:58)
[2023-09-17] MEDS: hydrOXYzine HCL 50 MG TABLET PO (07:58)
[2023-09-17] MEDS: PHENobarbitaL 30 MG TABLET PO (07:58)
[2023-09-17] MEDS: Thiamine HCL 100 MG TABLET PO (07:58)
[2023-09-17] MEDS: Buprenorphine/Naloxone 8/2 mg TAB.SUBL 1 TAB SUBLINGUAL ×3 (07:58→22:15)
[2023-09-17] MEDS: amLODIPine Besylate 5 MG TABLET PO (07:58)
[2023-09-17] MEDS: Fluticasone/Vilanterol 200/25 BLST.W.DEV 1 PUFF INHALE (08:10)
[2023-09-17] MEDS: Potassium Chloride ER 20 MEQ TAB.ER.PRT 40 MEQ PO ×2 (09:23→22:13)
--- NOTE | 2023-09-17 11:09 | CA_ITS ---
Transthoracic Echocardiogram Patient (Last, First, Middle): Darren Montiel, Gender: Male Date of : 1955 Age: 67 Procedure Date: 09/17/2023 Procedure Type: Transthoracic Echocardiogram Location: [facility] – [place] Height: 172.72 cm Weight: 132. kg BSA: 2.40 m2 Heart Rate: bpm BP: 122 / 49 mmHg Global Creative Chairman: NATHALIE Referring MD: Tyron Man MD Symptoms: fluid overload, heart failure Study Quality: Adequate w Contrast ECG Rhythm: Sinus Conclusions: - The left ventricular systolic function is hyperdynamic. The visually estimated ejection fraction is >70%. - No obvious valvular pathology seen on this study. Findings Procedure Information Contrast agent, definity, is being given per protocol without apparent complications. Left Ventricle Normal left ventricular cavity size. There is moderately increased left ventricular wall thickness. The left ventricular systolic function is hyperdynamic. The visually estimated ejection fraction is >70%. There is no evidence of regional wall motion abnormalities. Diastolic function is normal for age. Right Ventricle Normal right ventricular cavity size and systolic function. Atria Both atria are normal in size. Aortic Valve The aortic valve was not well visualized. There is no aortic valve stenosis. There is no aortic valve regurgitation. Mitral Valve The mitral valve appears normal. There is no mitral valve regurgitation. There is no mitral valve stenosis. Pulmonic Valve The pulmonic valve is likely normal. Tricuspid Valve There is trace tricuspid valve regurgitation. There is no evidence of pulmonary hypertension. Great Vessels The asc aorta is normal in size. Venous The inferior vena cava is mildly dilated and collapses greater than 50% with inspiration. Pericardium/Pleural There is no evidence of pericardial effusion. Prior Study Comparison No prior study available for comparison. Recommendations, Care & Conclusions No obvious valvular pathology seen on this study. Measurements 2D Linear Measurements IVSd: 1.35 0.6-0.9/0.6-1.0 cm LVIDd: 3.85 3.9-5.3/4.2-5.9 cm LVIDd Index: 1.60 2.4-3.2/2.2-3.1 cm/m2 LVIDs: 2.56 2.0-3.6 cm LVPWd: 1.26 0.7-1.1 cm Ao Root: 3.20 2.1-3.5 cm LA Diam: 4.20 2.7-3.8/3.0-4.0 cm LAIDs Index: 1.75 1.5-2.3 cm/m2 LV Mass: 221.02 67-162/88-224 g LV Mass Index: 92.09 43-95/49-115 g/m2 LVOT Diam: 2.20 3.0+(-)1.3 cm Mitral Valve MV Pk E: 0.56 MV PK A: 0.82 MV Decel Time: 123.00 E/A: 0.70 E'Lateral: 5.22 E'Medial: 6.20 E/E' Med: 9.00 E/E' Lat: 10.70 PHT: 36.00 MVA PHT: 6.11 Decel Miller: 4.52 Aortic Valve AoV Pk Kd: 1.43 AoV Mn Kd: 0.94 AoV VTI: 0.25 AoV Pk Grad: 8.00 Aov Mn Grad: 4.00 BRAD Cont.VTI: 2.61 LVOT LVOT Pk Kd: 0.92 LVOT Mn Kd: 0.62 LVOT VTI: 0.17 LVOT Pk Grad: 3.00 LVOT Mn Grad: 2.00 LVOT Diam: 2.20 LVOT Area: 3.80 Diastolic Function MV Pk E: 0.56 MV Pk A: 0.82 E/A: 0.70 E'Medial: 6.20 E/E' Med: 9.00 E' Laterial: 5.22 E/E' Lat: 10.70 Right Ventricle TAPSE (mm): 29.00 TVS' Kd: 23.00 Tricuspid Valve TR Pk Kd: 2.13 TR Pk Grad: 18.00 RA Press: 3.00 Great Vessels Aorta Ao Root-2D: 3.20 2.0-3.7 cm Ao Asc: 3.50 2.1-3.4 cm Pulmonary Valve PV Pk Kd: 1.24 Peak PV Grad: 6.00 Updated in Other Vendor System with Status of Final Kd Knowles MD electronically signed on 09/17/2023 3:57:22 PM with status of Final
--- NOTE | 2023-09-17 11:14 | HO.PM.IMPN ---
Subjective Subjective Date of Service: 09/18/23 Interval History: f/u on alcohol withdrawal, interval history: he's seem more tremulous and hallucinating today, he has been refusing the phenobarbital stating that it doesn't work and he usally get benzo Physical Exam Vital Signs: Vital Signs: Last Vital Signs Temp 97.7 F 09/17/23 08:00 Pulse 95 09/17/23 08:11 Resp 22 H 09/17/23 08:00 BP 122/49 L 09/17/23 08:00 Pulse Ox 90 L 09/17/23 08:00 O2 Del Method Room Air 09/17/23 08:00 O2 Flow Rate 2 09/14/23 11:30 BMI result Body Mass Index 44.3 General: AO X 3, Resp: CTA bilateral CVS: S1,S2,RRR GI: +BS, NT, no distention Skin: No rash Neuro: motor grossly intact Psych: appropriate affect Objective Data Active Medications Acetaminophen (Acetaminophen 325 Mg Tablet) 650 mg PO Q6H PRN PRN Reason: Pain, Mild (Pain Scale 1-3), fever or headache Last Admin: 09/16/23 13:50 Dose: 650 mg Documented By: LINDSEY Albuterol Sulfate (Albuterol Sulfate 90 Mcg 8 Gm Inhaler) 2 puff INHALE Q6H PRN PRN Reason: Shortness Of Breath Or Wheezing Amlodipine Besylate (Amlodipine Besylate 5 Mg Tablet) 5 mg PO DAILY ON LICENSE OF [facility]; Protocol Last Admin: 09/17/23 07:58 Dose: 5 mg Documented By: PENNY Buprenorphine/Naloxone (Buprenorphine/Naloxone 8/2 Mg Tab.Subl) 1 tab SUBLINGUAL TID ON LICENSE OF [facility] Last Admin: 09/17/23 07:58 Dose: 1 tab Documented By: PENNY Calcium Carbonate (Calcium Carbonate 750 Mg Tab.Chew) 750 mg PO Q4H PRN PRN Reason: Heartburn Last Admin: 09/14/23 14:04 Dose: 750 mg Documented By: ELIZABETH Divalproex Sodium (Divalproex Sodium Er 500 Mg Tab.Er.24h) 2,000 mg PO BEDTIME ON LICENSE OF [facility] Last Admin: 09/16/23 20:15 Dose: 2,000 mg Documented By: GRACE Enoxaparin Sodium (Enoxaparin Sodium 40 Mg/0.4 Ml Syringe) 40 mg SUBCUT Q24H ON LICENSE OF [facility] Last Admin: 09/16/23 12:52 Dose: 40 mg Documented By: LINDSEY Famotidine (Famotidine/Pf 20 Mg/2 Ml Vial) 20 mg IVPUSH DAILY ON LICENSE OF [facility] Last Admin: 09/17/23 07:57 Dose: 20 mg Documented By: PENNY Fluticasone/Vilanterol (Fluticasone/Vilanterol 200/25 Blst.W.Dev) 1 puff INHALE RDAILY ON LICENSE OF [facility] Last Admin: 09/17/23 08:10 Dose: 1 puff Documented By: CARLOS Furosemide (Furosemide 40 Mg Tablet) 40 mg PO DAILY ON LICENSE OF [facility]; Protocol Last Admin: 09/17/23 07:58 Dose: 40 mg Documented By: PENNY Guaifenesin (Guaifenesin La 600 Mg Tab.Er.12h) 600 mg PO BID ON LICENSE OF [facility] Last Admin: 09/17/23 07:57 Dose: 600 mg Documented By: PENNY Hydroxyzine HCl (Hydroxyzine Hcl 25 Mg Tablet) 25 mg PO TID PRN PRN Reason: Anxiety Thiamine HCl 500 mg/ Sodium (Chloride) 105 mls @ 208 mls/hr IV Q12H ON LICENSE OF [facility] Last Infusion: 09/17/23 03:11 Dose: Infused Documented By: GRACE Levalbuterol HCl (Levalbuterol Hcl 1.25 Mg/3 Ml Vial.Neb) 1.25 mg INHALE Q4H PRN PRN Reason: Shortness of Breath/Wheezing Losartan Potassium (Losartan Potassium 50 Mg Tablet) 100 mg PO DAILY ON LICENSE OF [facility]; Protocol Last Admin: 09/17/23 07:57 Dose: 100 mg Documented By: PENNY Magnesium Hydroxide (Milk Of Magnesia 30 Ml Oral.Susp) 30 ml PO DAILY PRN PRN Reason: Constipation Melatonin (Melatonin 3 Mg Tablet) 6 mg PO BEDTIME PRN PRN Reason: Insomnia Last Admin: 09/16/23 20:15 Dose: 6 mg Documented By: GRACE Mirtazapine (Mirtazapine 7.5 Mg Tablet) 7.5 mg PO BEDTIME ON LICENSE OF [facility] Last Admin: 09/16/23 20:16 Dose: 7.5 mg Documented By: GRACE Multivitamins/Vitamin C (Multivitamin Tablet) 1 tab PO DAILY ON LICENSE OF [facility] Last Admin: 09/17/23 07:57 Dose: 1 tab Documented By: PENNY Ondansetron HCl (Ondansetron Hcl 4 Mg/2 Ml Vial) 4 mg IVPUSH Q6H PRN PRN Reason: Nausea and Vomiting Last Admin: 09/17/23 00:52 Dose: 4 mg Documented By: GRACE Paroxetine HCl (Paroxetine Hcl 20 Mg Tablet) 20 mg PO BEDTIME ON LICENSE OF [facility] Last Admin: 09/16/23 20:15 Dose: 20 mg Documented By: GRACE Pharmacy Consult (Consult Rx Etoh Phenob Im/Po) 1 each MISCELLANE ONCE PRN; Protocol PRN Reason: Consult order Phenobarbital (Phenobarbital 30 Mg Tablet) 30 mg PO BID ON LICENSE OF [facility]; Protocol Stop: 09/18/23 21:01 Last Admin: 09/17/23 07:58 Dose: 30 mg Documented By: PENNY Phenobarbital (Phenobarbital 30 Mg Tablet) 30 mg PO DAILY ON LICENSE OF [facility]; Protocol Stop: 09/20/23 09:01 Potassium Chloride (Potassium Chloride Er 20 Meq Tab.Er.Prt) 40 meq PO BID ON LICENSE OF [facility] Stop: 09/17/23 21:01 Last Admin: 09/17/23 09:23 Dose: 40 meq Documented By: PENNY Pyridoxine HCl (Pyridoxine Hcl (Vitamin B6) 50 Mg Tablet) 50 mg PO DAILY ON LICENSE OF [facility] Last Admin: 09/17/23 07:58 Dose: 50 mg Documented By: PENNY Senna (Sennosides 8.6 Mg Tablet) 17.2 mg PO BEDTIME ON LICENSE OF [facility] Last Admin: 09/16/23 20:16 Dose: 17.2 mg Documented By: GRACE Sodium Chloride (0.9 % Sodium Chloride Flush 3 Ml Syringe) 3 ml IVFLUSH QSHIFT ON LICENSE OF [facility] Last Admin: 09/17/23 07:18 Dose: Not Given Documented By: PENNY Non-Admin Reason: Previously Administered Thiamine HCl (Thiamine Hcl 100 Mg Tablet) 100 mg PO DAILY ON LICENSE OF [facility] Last Admin: 09/17/23 07:58 Dose: 100 mg Documented By: PENNY Labs 09/18/23 09:02 09/18/23 09:02 Labs: Laboratory Results - last 24 hr 09/17/23 06:22 Anion Gap 14 Estim Creat Clear Calc 132.1 Estimated GFR > 60 Random Glucose 97 Calcium 8.7 Assessment and Plan (1) Abdominal pain: Status: Acute (2) COPD exacerbation: Status: Acute (3) Alcohol withdrawal: Status: Acute Plan 67 year old male with PTSD, panic disorder, alcohol dependency here with Alcohol withdrawal--symptom escalating with hallucination. He is refusing phenobarbital stating it doesn't work for him and make him fore sic-- -changing phenobarbital protocol to Benzo protocol, follow [facility]WA. Ammonia level is within normal. Has received thiamine supplment and continue multi vitamin Abdominal pain--likely gastritis, and no longer complaining of pain, CT shows no acute finding, symptomatic treatment pepcid and pain medication prn HTN--continue losartan, add Norvasc 5 for better control Fluid overload, BNP level normal, echo show hyperdybamic heart. Will card to see. Continue present dose of Lasix Mood disorder --continue remron, Paxil and hydroxyzine PRN for anxiety and Ativan as part of alcohol withdrawal treatment, consider Psych consult if develop behavior issues Panic disorder/anxiety, no standing meds, hydroxyzine morbidid obesity--weight loss advised copd no exacerbation, continue bronchodilators DVT prophylaxis--Lovenox full code inaptient for alcohol withdrawal management with im phenobarbital out of bed ambulate/PT eval Quality Stroke Does the patient have a stroke diagnosis?: No VTE Prior VTE?: No VTE Risk Level:: Medical - moderate - high VTE Device Contraindication: Treatment Not Indicated VTE Drug Contraindication: N/A - Med Ordered
[2023-09-17 11:47] LABS: Alanine Aminotransferase 74 U/L (0-40); Albumin Level 3.5 g/dL (3.5-5.0); Alkaline Phosphatase 159 U/L (39-117); Aspartate Amino Transferase 86 U/L (5-37); Bilirubin Direct 0.7 mg/dL (0.0-0.5); Bilirubin Total 1.5 mg/dL (0.0-1.0); Total Protein 6.7 g/dL (6.5-8.0)
[2023-09-17 11:52] LABS: Hematocrit 41.1 % (42.0-52.0); Hemoglobin 13.9 g/dl (14.0-18.0); Mean Corpuscular HGB Conc 33.8 g/dl (31.0-36.0); Mean Corpuscular Volume 88.8 fL (80.0-98.0); Mean Platelet Volume 10.7 fL (9.4-12.4); Platelet Count 152 X10*3/uL (160-400); Red Blood Count 4.63 X10*6/uL (4.60-5.80); Red Cell Distribution Width 15.2 % (11.0-16.0); White Blood Count 13.5 X10*3/uL (4.8-10.8)
[2023-09-17 11:55] LABS: Ammonia 40 umol/L (13-55)
--- NOTE | 2023-09-17 11:59 | MHC.CM.PN ---
EMR REVIEWED, PT W/ETOH WITHDRAWAL REMAINS IN ETOH WITHDRAWAL AND ON PHENO PROTOCOL, NO PLAN FOR DC AT THIS TIME, ANTIC PT WILL NEED TRANSPORTATION HOME, CM WILL CONT TO FOLLOW DC NEEDS.
[2023-09-17] MEDS: LORazepam 1 MG TABLET 2 MG PO (12:07)
[2023-09-17] MEDS: Enoxaparin Sodium 40 MG/0.4 ML SYRINGE SUBCUT (12:07)
[2023-09-17 12:09] LABS: B Type Natriuretic Peptide 85 pg/mL (<100)
[2023-09-17] MEDS: LORazepam 1 MG TABLET PO ×3 (14:24→22:14)
[2023-09-17] MEDS: Divalproex Sodium ER 500 MG TAB.ER.24H 2000 MG PO (22:13)
[2023-09-17] MEDS: hydrOXYzine HCL 25 MG TABLET PO (22:13)
[2023-09-17] MEDS: Sennosides 8.6 MG TABLET 17.2 MG PO (22:14)
[2023-09-17] MEDS: PARoxetine HCL 20 MG TABLET PO (22:14)
[2023-09-17] MEDS: Acetaminophen 325 MG TABLET 650 MG PO (22:14)
[2023-09-17] MEDS: Mirtazapine 7.5 MG TABLET PO (22:14)
[2023-09-17] MEDS: 0.9 % Sodium Chloride Flush 3 ML SYRINGE IVFLUSH (22:15)
[2023-09-17] MEDS: Melatonin 3 MG TABLET 6 MG PO (22:15)
[2023-09-18] VITALS (16 sets, daily range): BP systolic 98–134; BP diastolic 55–73; PULSE 68–109; RESP 16–32; TEMP 36–37.1; O2SAT 88–95
[2023-09-18] MEDS: LORazepam 1 MG TABLET PO ×2 (03:17→14:09)
[2023-09-18] MEDS: Fluticasone/Vilanterol 200/25 BLST.W.DEV 1 PUFF INHALE (07:42)
[2023-09-18] MEDS: guaiFENesin LA 600 MG TAB.ER.12H PO (08:35)
[2023-09-18] MEDS: Furosemide 40 MG TABLET PO (08:35)
[2023-09-18] MEDS: Losartan Potassium 50 MG TABLET 100 MG PO (08:35)
[2023-09-18] MEDS: Multivitamin TABLET 1 TAB PO (08:35)
[2023-09-18] MEDS: amLODIPine Besylate 5 MG TABLET PO (08:35)
[2023-09-18] MEDS: Thiamine HCL 100 MG TABLET PO (08:35)
[2023-09-18] MEDS: Pyridoxine HCl (Vitamin B6) 50 MG TABLET PO (08:35)
[2023-09-18] MEDS: Famotidine/PF 20 MG/2 ML VIAL IVPUSH (08:36)
[2023-09-18] MEDS: 0.9 % Sodium Chloride Flush 3 ML SYRINGE IVFLUSH ×2 (08:36→14:22)
[2023-09-18 09:15] LABS: ABG Base Excess 3.9 mmol/L; ABG HCO3 27 mmol/L (22-26); ABG pCO2 38 mmHg (32-45); ABG pH 7.46 (7.35-7.45); ABG pO2 60 mmHg (83-108)
[2023-09-18 09:43] LABS: Hematocrit 38.6 % (42.0-52.0); Mean Corpuscular HGB Conc 33.7 g/dl (31.0-36.0); Mean Corpuscular Hemoglobin 29.9 pg (27.0-33.0); Mean Corpuscular Volume 88.7 fL (80.0-98.0); Mean Platelet Volume 11.6 fL (9.4-12.4); Platelet Count 125 X10*3/uL (160-400); Red Blood Count 4.35 X10*6/uL (4.60-5.80); Red Cell Distribution Width 15.5 % (11.0-16.0); White Blood Count 11.6 X10*3/uL (4.8-10.8)
[2023-09-18 09:56] LABS: Anion Gap 14 (12-20); Blood Urea Nitrogen 10 mg/dL (9-16); Carbon Dioxide 25 mmol/L (22-29); Chloride 99 mmol/L (96-108); Creatinine Clr Calc Pharmacy 133.9; Estimated Glomerular Filt Rate > 60; Glucose Random 97 mg/dL (60-115); Magnesium 1.4 mg/dL (1.6-2.6); Potassium 3.2 mmol/L (3.3-5.1); Sodium 135 mmol/L (135-145)
--- NOTE | 2023-09-18 10:35 | P.CONCA_ITS ---
History of Present Illness History of Present Illness Date of Service: 09/18/23 Chief complaint: alcohol withdrawal Narrative: We have been asked to assess this patient for any congestive heart failure. Patient himself is very poor historian and very sleepy and not really able to answer much questions. Per discussion with Dr. Man and reviewing the documentation, it seems that he is currently in the hospital for alcohol issues. Heavy drinker and currently having some withdrawal. In this context, thought to have fluid overload and hence we are asked to see the patient. There is a question of congestive heart failure. Patient is barely answering questions but he states that he does not really have any known cardiac issues. Unknown activity levels or exercise tolerance at home. Denies any shortness of breath or chest pain at this time. Review of Systems 2 Review of Systems: Yes all other systems are reviewed and are negative Constitutional: Constitutional: Reports as per HPI and Reports no additional constitutional complaints Eyes: Eyes: Reports as per HPI and Denies no additional eye complaints ENT: Denies system reviewed and no additional complaints, except as documented and Reports as per HPI Cardiovascular: Cardiovascular: Reports as per HPI, Reports no additional cardiovascular complaints, Denies acrocyanosis, Denies cool extremities, Denies chest pain, Denies leg edema, Denies lightheadedness, Denies palpitations and Denies dyspnea Respiratory: Respiratory: Reports as per HPI, Denies no additional respiratory complaints and Denies dyspnea Gastrointestinal: Gastrointestinal: Reports as per HPI and Denies no additional gastrointestinal complaints Genitourinary: Genitourinary: Reports no additional male genitourinary complaints and Reports as per HPI Musculoskeletal: Musculoskeletal: Reports no additional musculoskeletal complaints and Reports as per HPI Integumentary/Breasts: Skin/Breast: Reports system reviewed and no additional complaints, except as docu Neurologic: Reports system reviewed and no additional complaints, except as documented and Reports as per HPI Psychiatric: Psychiatric: Reports no additional psychiatric complaints and Reports as per HPI Endocrine: Endocrine: Reports no additional endocrine complaints, Reports as per HPI and Denies palpitations Hematologic/Lymphatic: Hematologic/Lymphatic: Reports no additional hematologic/lymphatic complaints and Reports as per HPI Allergic/Immunologic: Allergic/Immunologic: Reports no additional allergic/immunologic complaints and Reports as per HPI PMFSH Past Medical History Medical History Panic disorder Traumatic brain injury ETOH abuse Family History Pertinent family history: Unable to obtain Social History Social History Household Members: None Housing: Condominium Do you presently have visiting nurse or other home services: No Comment: sitter in room Patient Tobacco Use Status: Current everyday Tobacco user Tobacco use type: Cigarette Cigarettes Per Day: 20 Smoked in Last 30 Days: Yes Patient Interested in Nicotine Replacement: No Use of substances other than those prescribed or required for medical reasons: Refusing to respond Currently Displaying Signs/Symptoms of Drug Intoxication Withdrawal: No Have you been hit, kicked, punched, or otherwise hurt by someone within the past year? If so, by whom?: No Is there a partner from a previous relationship who is making you feel unsafe now?: No Are you made to feel afraid or neglected: No Advance Directives: No Advance Directives Information Provided: No Do you have a plan to hurt others: No Plan Meds Allergies Allergy/AdvReac Type Severity Reaction Status Date / Time No Known Allergies Allergy Verified 09/14/23 00:15 Active Medications: Current Medications Acetaminophen (Acetaminophen 325 Mg Tablet) 650 mg PO Q6H PRN PRN Reason: Pain, Mild (Pain Scale 1-3), fever or headache Last Admin: 09/17/23 22:14 Dose: 650 mg Albuterol Sulfate (Albuterol Sulfate 90 Mcg 8 Gm Inhaler) 2 puff INHALE Q6H PRN PRN Reason: Shortness Of Breath Or Wheezing Amlodipine Besylate (Amlodipine Besylate 5 Mg Tablet) 5 mg PO DAILY [facility]; Protocol Last Admin: 09/18/23 08:35 Dose: 5 mg Buprenorphine/Naloxone (Buprenorphine/Naloxone 8/2 Mg Tab.Subl) 1 tab SUBLINGUAL TID [facility] Last Admin: 09/18/23 08:41 Dose: Not Given Calcium Carbonate (Calcium Carbonate 750 Mg Tab.Chew) 750 mg PO Q4H PRN PRN Reason: Heartburn Last Admin: 09/14/23 14:04 Dose: 750 mg Divalproex Sodium (Divalproex Sodium Er 500 Mg Tab.Er.24h) 2,000 mg PO BEDTIME [facility] Last Admin: 09/17/23 22:13 Dose: 2,000 mg Enoxaparin Sodium (Enoxaparin Sodium 40 Mg/0.4 Ml Syringe) 40 mg SUBCUT Q24H [facility] Last Admin: 09/17/23 12:07 Dose: 40 mg Famotidine (Famotidine/Pf 20 Mg/2 Ml Vial) 20 mg IVPUSH DAILY [facility] Last Admin: 09/18/23 08:36 Dose: 20 mg Fluticasone/Vilanterol (Fluticasone/Vilanterol 200/25 Blst.W.Dev) 1 puff INHALE RDAILY [facility] Last Admin: 09/18/23 07:42 Dose: 1 puff Furosemide (Furosemide 40 Mg Tablet) 40 mg PO DAILY [facility]; Protocol Last Admin: 09/18/23 08:35 Dose: 40 mg Guaifenesin (Guaifenesin La 600 Mg Tab.Er.12h) 600 mg PO BID [facility] Last Admin: 09/18/23 08:35 Dose: 600 mg Hydroxyzine HCl (Hydroxyzine Hcl 25 Mg Tablet) 25 mg PO TID PRN PRN Reason: Anxiety Last Admin: 09/17/23 22:13 Dose: 25 mg Magnesium Sulfate (Magnesium Sulfate/H2o) 2 gm in 50 mls @ 25 mls/hr IV ONCE ONE Stop: 09/18/23 11:55 Levalbuterol HCl (Levalbuterol Hcl 1.25 Mg/3 Ml Vial.Neb) 1.25 mg INHALE Q4H PRN PRN Reason: Shortness of Breath/Wheezing Lorazepam (Lorazepam 1 Mg Tablet) 1 mg PO Q4H PRN PRN Reason: Breakthrough alcohol withdrawa Stop: 09/21/23 11:54 Last Admin: 09/17/23 19:49 Dose: 1 mg Lorazepam (Lorazepam 1 Mg Tablet) 1 mg PO Q4H [facility]; Taper Stop: 09/21/23 13:59 Last Admin: 09/18/23 08:39 Dose: Not Given Losartan Potassium (Losartan Potassium 50 Mg Tablet) 100 mg PO DAILY [facility]; Protocol Last Admin: 09/18/23 08:35 Dose: 100 mg Magnesium Hydroxide (Milk Of Magnesia 30 Ml Oral.Susp) 30 ml PO DAILY PRN PRN Reason: Constipation Melatonin (Melatonin 3 Mg Tablet) 6 mg PO BEDTIME PRN PRN Reason: Insomnia Last Admin: 09/17/23 22:15 Dose: 6 mg Mirtazapine (Mirtazapine 7.5 Mg Tablet) 7.5 mg PO BEDTIME [facility] Last Admin: 09/17/23 22:14 Dose: 7.5 mg Multivitamins/Vitamin C (Multivitamin Tablet) 1 tab PO DAILY [facility] Last Admin: 09/18/23 08:35 Dose: 1 tab Ondansetron HCl (Ondansetron Hcl 4 Mg/2 Ml Vial) 4 mg IVPUSH Q6H PRN PRN Reason: Nausea and Vomiting Last Admin: 09/17/23 00:52 Dose: 4 mg Paroxetine HCl (Paroxetine Hcl 20 Mg Tablet) 20 mg PO BEDTIME [facility] Last Admin: 09/17/23 22:14 Dose: 20 mg Pharmacy Consult (Consult Rx Etoh Phenob Im/Po) 1 each MISCELLANE ONCE PRN; Protocol PRN Reason: Consult order Pyridoxine HCl (Pyridoxine Hcl (Vitamin B6) 50 Mg Tablet) 50 mg PO DAILY [facility] Last Admin: 09/18/23 08:35 Dose: 50 mg Senna (Sennosides 8.6 Mg Tablet) 17.2 mg PO BEDTIME [facility] Last Admin: 09/17/23 22:14 Dose: 17.2 mg Sodium Chloride (0.9 % Sodium Chloride Flush 3 Ml Syringe) 3 ml IVFLUSH QSHIFT [facility] Last Admin: 09/18/23 08:36 Dose: 3 ml Thiamine HCl (Thiamine Hcl 100 Mg Tablet) 100 mg PO DAILY [facility] Last Admin: 09/18/23 08:35 Dose: 100 mg Home Medications ?Medication ?Instructions ?Recorded ?Confirmed ?Last Taken ?Type albuterol sulfate 90 mcg/actuation 2 puff inhalation Q6H PRN 09/14/23 09/14/23 Unknown History aerosol inhaler Shortness Of Breath Or Wheezing buprenorphine 8 mg-naloxone 2 mg 1 tab sublingual TID 09/14/23 09/14/23 Unknown History sublingual tablet divalproex 500 mg tablet,extended 2,000 mg PO BEDTIME 09/14/23 09/14/23 Unknown History release 24 hr fluticasone 500 mcg-salmeterol 50 1 inh inhalation BID 09/14/23 09/14/23 Unknown History mcg/dose blistr powdr for inhalation (Advair Diskus) folic acid 1 mg tablet 1 mg PO DAILY 09/14/23 09/14/23 Unknown History guaifenesin 600 mg tablet, 600 mg PO BID 09/14/23 09/14/23 Unknown History extended release 12 hr hydroxyzine HCl 50 mg tablet 50 mg PO TID PRN Anxiety 09/14/23 09/14/23 Unknown History losartan 100 mg tablet 100 mg PO DAILY 09/14/23 09/14/23 Unknown History melatonin 5 mg tablet 5 mg PO BEDTIME PRN Sleep 09/14/23 09/14/23 Unknown History mirtazapine 7.5 mg tablet 7.5 mg PO BEDTIME 09/14/23 09/14/23 Unknown History multivitamin 1 tab PO DAILY 09/14/23 09/14/23 Unknown History naloxone 4 mg/actuation nasal spray 4 mg intranasal Q3M PRN Opioid 09/14/23 09/14/23 Unknown History Overdose paroxetine HCl 20 mg tablet 20 mg PO BEDTIME 09/14/23 09/14/23 Unknown History pyridoxine (vitamin B6) 50 mg 50 mg PO DAILY 09/14/23 09/14/23 Unknown History tablet sennosides 8.6 mg tablet (senna) 17.2 mg PO BEDTIME 09/14/23 09/14/23 Unknown History thiamine HCl (vitamin B1) 100 mg 100 mg PO DAILY 09/14/23 09/14/23 Unknown History tablet tirzepatide 2.5 mg/0.5 mL 2.5 mg subcut QWEEK 09/14/23 09/14/23 Unknown History subcutaneous pen injector Physical Exam 2 Vital Signs: Vital Signs: Last Vital Signs Temp 98.7 F 09/18/23 03:36 Pulse 102 H 09/18/23 07:44 Resp 18 09/18/23 07:44 BP 134/73 09/18/23 03:36 Pulse Ox 94 09/18/23 05:32 O2 Del Method Nasal Cannula 09/18/23 05:32 O2 Flow Rate 2 09/18/23 05:32 BMI result Body Mass Index 44.3 Const: General: comfortable, no acute distress, lethargic and poor hygiene Orientation/consciousness: No patient oriented x3 and lethargic HEENT: Other: Unremarkable Head: Yes normal to inspection Neck: Neck: Yes normal visual inspection Chest: Chest palpation & inspection: normal inspection of the chest Resp: Auscultation: rhonchi, wheezes and diminished lung sounds Cardio: Palpation: normal PMI Heart sounds: S1 normal heart sound present, S2 normal heart sound present, no gallops, no murmurs and no rubs GI: Palpation (GI): Soft to palpation Back/Spine/Pelvis: Other: unremarkable Skin: General skin exam: no rashes or lesions noted Neuro: General: No patient oriented x3 Extrem: Other: 1+ edema General: Yes normal to inspection Psych: Mental Status: mental status grossly normal Objective Labs and Meds 09/18/23 09:02 09/18/23 09:02 Lab results: Laboratory Results - last 24 hr 09/17/23 09/17/23 09/18/23 06:22 11:43 09:02 WBC 13.5 H 11.6 H RBC 4.63 4.35 L Hgb 13.9 L 13.0 L Hct 41.1 L 38.6 L MCV 88.8 88.7 MCH 30.0 29.9 MCHC 33.8 33.7 RDW 15.2 15.5 Plt Count 152 L D 125 L MPV 10.7 11.6 Absolute Nucleated RBC 0.000 0.000 Nucleated RBC % (auto) 0.0 0.0 O2 Saturation ABG pH at Pt Temp ABG pCO2 at Pt Temp ABG pO2 at Pt Temp ABG HCO3 ABG Base Excess (Actual) Sodium 135 Potassium 3.2 L Chloride 99 Carbon Dioxide 25 Anion Gap 14 BUN 10 Creatinine 0.73 Estim Creat Clear Calc 133.9 Estimated GFR > 60 Random Glucose 97 Calcium 8.0 L D Magnesium 1.4 L* Total Bilirubin 1.5 H Direct Bilirubin 0.7 H AST 86 H ALT 74 H Alkaline Phosphatase 159 H Ammonia 40 B-Natriuretic Peptide 85 Total Protein 6.7 Albumin 3.5 09/18/23 09:05 WBC RBC Hgb Hct MCV MCH MCHC RDW Plt Count MPV Absolute Nucleated RBC Nucleated RBC % (auto) O2 Saturation 89.0 ABG pH at Pt Temp 7.46 H ABG pCO2 at Pt Temp 38 ABG pO2 at Pt Temp 60 L ABG HCO3 27 H ABG Base Excess (Actual) 3.9 Sodium Potassium Chloride Carbon Dioxide Anion Gap BUN Creatinine Estim Creat Clear Calc Estimated GFR Random Glucose Calcium Magnesium Total Bilirubin Direct Bilirubin AST ALT Alkaline Phosphatase Ammonia B-Natriuretic Peptide Total Protein Albumin ECG Interpretation: EKG with sinus tachycardia 102/Min; cannot exclude old inferior infarct but could be from body habitus; nonspecific ST-T changes; normal IL and corrected QT. Telemetry is unremarkable. Imaging Radiologist's impression: Impressions Venous Duplex 09/17/23 16:57 IMPRESSION: 1. No DVT demonstrated in the visualized bilateral lower extremity veins, however the right popliteal, left posterior tibial and bilateral peroneal veins were not visualized limiting evaluation. 2. Subcutaneous edema in the left calf. 3. Prominent left-sided inguinal nodes not enlarged by short axis criteria. This exam was submitted to the interpreting radiologist for interpretation on 09/18/2023 10:16 AM. Assessment and Plan (1) Alcohol withdrawal: Status: Acute (2) Alcoholic intoxication: Status: Acute (3) Edema: Status: Acute Plan Echocardiogram with hyperdynamic LVEF. Normal diastolic function and otherwise unremarkable. IVC thought to be mildly dilated but collapses appropriately with respiration. Cardiac BNP is well within normal limits. Overall, concern for mild leg swelling which could be related to some right heart dysfunction related to obesity. Alcohol excess can also independently due to fluid overload. May use empiric diuretics but otherwise no specific management from cardiac at this time. Management of alcohol withdrawal. Procedures Date of Service Date of Service: 09/18/23
[2023-09-18] MEDS: Magnesium Sulfate/H2O 2 GM/50 ML PIGGYBACK IV (11:48)
[2023-09-18] MEDS: Enoxaparin Sodium 40 MG/0.4 ML SYRINGE SUBCUT (12:02)
--- NOTE | 2023-09-18 13:21 | P.PNIM_ITS ---
Subjective Subjective Date of Service: 09/18/23 Interval History: f/u on alcohol withdrawal, interval history: Patient was very sleepy and less responsive this morning, O2 sat dropped to 80s early this morning. He has been receiving scheduled and PRN ativan. ABG this morning was ok. Benzos held this morning due to excessive somnolence and hypoxia, seem to interact briefly apropriately then esclated constatntly trying to get out of bed, pulling tubes, tremulous.. Was given scheduled dose of ativan but did help. Sitter constantly redirecting him back to bed and to keep from falling Physical Exam 2 Vital Signs: Vital Signs: Last Vital Signs Temp 97.6 F 09/18/23 12:00 Pulse 68 09/18/23 12:00 Resp 18 09/18/23 12:00 BP 107/64 09/18/23 12:00 Pulse Ox 93 09/18/23 12:00 O2 Del Method Room Air 09/18/23 12:00 O2 Flow Rate 2 09/18/23 05:32 BMI result Body Mass Index 44.3 General: AO X 3, Resp: CTA bilateral CVS: S1,S2,RRR GI: +BS, NT, no distention Skin: No rash Neuro: motor grossly intact Psych: appropriate affect Objective Data Active Medications Acetaminophen (Acetaminophen 325 Mg Tablet) 650 mg PO Q6H PRN PRN Reason: Pain, Mild (Pain Scale 1-3), fever or headache Last Admin: 09/17/23 22:14 Dose: 650 mg Documented By: GRACE Albuterol Sulfate (Albuterol Sulfate 90 Mcg 8 Gm Inhaler) 2 puff INHALE Q6H PRN PRN Reason: Shortness Of Breath Or Wheezing Amlodipine Besylate (Amlodipine Besylate 5 Mg Tablet) 5 mg PO DAILY NICANOR; Protocol Last Admin: 09/18/23 08:35 Dose: 5 mg Documented By: JESSY Buprenorphine/Naloxone (Buprenorphine/Naloxone 8/2 Mg Tab.Subl) 1 tab SUBLINGUAL TID NICANOR Last Admin: 09/18/23 08:41 Dose: Not Given Documented By: JESSY Non-Admin Reason: HOLD PER PROVIDER Calcium Carbonate (Calcium Carbonate 750 Mg Tab.Chew) 750 mg PO Q4H PRN PRN Reason: Heartburn Last Admin: 09/14/23 14:04 Dose: 750 mg Documented By: ELIZABETH Divalproex Sodium (Divalproex Sodium Er 500 Mg Tab.Er.24h) 2,000 mg PO BEDTIME [facility] Last Admin: 09/17/23 22:13 Dose: 2,000 mg Documented By: GRACE Enoxaparin Sodium (Enoxaparin Sodium 40 Mg/0.4 Ml Syringe) 40 mg SUBCUT Q24H [facility] Last Admin: 09/18/23 12:02 Dose: 40 mg Documented By: JESSY Famotidine (Famotidine/Pf 20 Mg/2 Ml Vial) 20 mg IVPUSH DAILY [facility] Last Admin: 09/18/23 08:36 Dose: 20 mg Documented By: JESSY Fluticasone/Vilanterol (Fluticasone/Vilanterol 200/25 Blst.W.Dev) 1 puff INHALE RDAILY [facility] Last Admin: 09/18/23 07:42 Dose: 1 puff Documented By: MARI Furosemide (Furosemide 40 Mg Tablet) 40 mg PO DAILY [facility]; Protocol Last Admin: 09/18/23 08:35 Dose: 40 mg Documented By: JESSY Guaifenesin (Guaifenesin La 600 Mg Tab.Er.12h) 600 mg PO BID [facility] Last Admin: 09/18/23 08:35 Dose: 600 mg Documented By: JESSY Hydroxyzine HCl (Hydroxyzine Hcl 25 Mg Tablet) 25 mg PO TID PRN PRN Reason: Anxiety Last Admin: 09/17/23 22:13 Dose: 25 mg Documented By: GRACE Levalbuterol HCl (Levalbuterol Hcl 1.25 Mg/3 Ml Vial.Neb) 1.25 mg INHALE Q4H PRN PRN Reason: Shortness of Breath/Wheezing Lorazepam (Lorazepam 1 Mg Tablet) 1 mg PO Q4H PRN PRN Reason: Breakthrough alcohol withdrawa Stop: 09/21/23 11:54 Last Admin: 09/17/23 19:49 Dose: 1 mg Documented By: ROSALEE Comments: pt not given scheduled 1800 dose. Pt agitated, difficult to redirect, several staff at bedside to assist with PT. Pt was agreeable to take PO med to assist with his care Lorazepam (Lorazepam 1 Mg Tablet) 1 mg PO Q4H [facility]; Taper Stop: 09/21/23 13:59 Last Admin: 09/18/23 11:58 Dose: Not Given Documented By: JESSY Non-Admin Reason: HOLD PER PROVIDER Losartan Potassium (Losartan Potassium 50 Mg Tablet) 100 mg PO DAILY [facility]; Protocol Last Admin: 09/18/23 08:35 Dose: 100 mg Documented By: JESSY Magnesium Hydroxide (Milk Of Magnesia 30 Ml Oral.Susp) 30 ml PO DAILY PRN PRN Reason: Constipation Melatonin (Melatonin 3 Mg Tablet) 6 mg PO BEDTIME PRN PRN Reason: Insomnia Last Admin: 09/17/23 22:15 Dose: 6 mg Documented By: GRACE Mirtazapine (Mirtazapine 7.5 Mg Tablet) 7.5 mg PO BEDTIME [facility] Last Admin: 09/17/23 22:14 Dose: 7.5 mg Documented By: GRACE Multivitamins/Vitamin C (Multivitamin Tablet) 1 tab PO DAILY [facility] Last Admin: 09/18/23 08:35 Dose: 1 tab Documented By: JESSY Ondansetron HCl (Ondansetron Hcl 4 Mg/2 Ml Vial) 4 mg IVPUSH Q6H PRN PRN Reason: Nausea and Vomiting Last Admin: 09/17/23 00:52 Dose: 4 mg Documented By: GRACE Paroxetine HCl (Paroxetine Hcl 20 Mg Tablet) 20 mg PO BEDTIME [facility] Last Admin: 09/17/23 22:14 Dose: 20 mg Documented By: GRACE Pharmacy Consult (Consult Rx Etoh Phenob Im/Po) 1 each MISCELLANE ONCE PRN; Protocol PRN Reason: Consult order Pyridoxine HCl (Pyridoxine Hcl (Vitamin B6) 50 Mg Tablet) 50 mg PO DAILY [facility] Last Admin: 09/18/23 08:35 Dose: 50 mg Documented By: JESSY Senna (Sennosides 8.6 Mg Tablet) 17.2 mg PO BEDTIME [facility] Last Admin: 09/17/23 22:14 Dose: 17.2 mg Documented By: GRACE Sodium Chloride (0.9 % Sodium Chloride Flush 3 Ml Syringe) [facility] Last Admin: 09/18/23 08:36 Dose: 3 ml Documented By: JESSY Labs 09/18/23 09:02 09/18/23 09:02 Labs: Laboratory Results - last 24 hr 09/18/23 09/18/23 09:02 09:05 MCV 88.7 MCH 29.9 MCHC 33.7 RDW 15.5 Plt Count 125 L MPV 11.6 Absolute Nucleated RBC 0.000 Nucleated RBC % (auto) 0.0 O2 Saturation 89.0 ABG pH at Pt Temp 7.46 H ABG pCO2 at Pt Temp 38 ABG pO2 at Pt Temp 60 L ABG HCO3 27 H ABG Base Excess (Actual) 3.9 Anion Gap 14 Estim Creat Clear Calc 133.9 Estimated GFR > 60 Random Glucose 97 Calcium 8.0 L D Magnesium 1.4 L* Assessment and Plan (1) Abdominal pain: Status: Acute (2) COPD exacerbation: Status: Acute (3) Alcohol withdrawal: Status: Acute Plan 67 year old male with PTSD, panic disorder, alcohol dependency here with Alcohol withdrawal --still with some residual symptom--but overall improved. He was on Phenobarbital but was refusing and symptoms escalating and therefore was switched to Benzo protocol. However due to excessive somnolence may need to decreasae Ativan. Continue multivitamin and has received more than 3 days of thiamine. Abdominal pain--likely gastritis, and no longer complaining of pain, CT shows no acute finding, symptomatic treatment pepcid and pain medication prn HTN--continue losartan, Norvasc 5 Hypokalemia and Hypomagensemia--repaced with IV mag and oral potassium and repeat labs tomorrow Fluid overload, BNP level normal, echo show hyperdybamic heart., BNP normal, probably edmea relatated to right hear dysfunction, cardiology recommends PRN Lasix. Continue home dose of Lasix Swollen legs--chronic, negative DVT by ultrasound Mood disorder/Panic disorder/anxiety--continue remron, Depakoe, Paxil, ativan, and hold hydroxyzine while on Ativan for alcohol withdrawal. consider Psych consult if develop behavior issues morbidid obesity--weight loss advised copd no exacerbation, continue bronchodilators DVT prophylaxis--Lovenox full code inaptient for alcohol withdrawal management with im phenobarbital out of bed ambulate/PT eval prior to dc Pt has no health care proxy on file and no family or friends to update, he himself doesn't have a phone Quality Stroke Does the patient have a stroke diagnosis?: No VTE Prior VTE?: No VTE Risk Level:: Medical - moderate - high VTE Device Contraindication: Treatment Not Indicated VTE Drug Contraindication: N/A - Med Ordered
[2023-09-18] MEDS: Potassium Chloride ER 20 MEQ TAB.ER.PRT 40 MEQ PO (14:08)
[2023-09-18] MEDS: Buprenorphine/Naloxone 8/2 mg TAB.SUBL 1 TAB SUBLINGUAL ×2 (14:21→22:00)
--- NOTE | 2023-09-18 15:27 | PM.EVENT ---
Event Note Date of Service: 09/18/23 Event Note: Due to increasing agitation, restlessness, and constant attempts to climb out of bed, and given that the patient has not responded well to Ativan, I discussed the option of monitoring in the ICU with Dr. Richardson and to consider using a steady medication like Precedex for better control of alcohol withdrawal symptoms. Dr. Richardson has accepted the patient into the ICU. Time Spent With Patient Time: Total time managing care of this patient today ____ minutes.
[2023-09-18] MEDS: dexmedeTOMIDidine HCL/NS 400 MCG/100 ML INFUS..BTL 33.03 MCG IVCONT (17:34)
[2023-09-18 19:24] LABS: HIV AB/AG Nonreactive (Nonreactive); HIV Num 1 0.03 S/CO (0.00-0.99)
[2023-09-18 19:43] LABS: ABG Refer to POC result
[2023-09-18] MEDS: dexmedeTOMIDidine HCL/NS 400 MCG/100 ML INFUS..BTL 26.42 MCG IVCONT (19:48)
--- NOTE | 2023-09-18 19:55 | PM.EVENT ---
Documented by User: Vero Mayer NP 09/18/23 19:57 Event Note Date of Service: 09/18/23 Event Note: Mr. Montiel is a 67 year old male with history of TBI, PTSD, panic disorder, ETOH abuse admitted to the medical floor 09/14/2023 with abdominal pain. While in the ED, he was tachycardic, tremulous and scoring a 15 on CIWA scale and was started on phenobarbital.? Yesterday, his ETOH withdrawal regimen was changed, when he refused the phenobarbital. This morning, benzos were held due to somnolence and hypoxia. As he aroused, he became agitated and restless, constantly attempting to climb out of bed. PRN ativan was ineffective. He was transferred to the ICU and started on a Precedex drip to manage his alcohol withdrawal.? Time Spent With Patient Time: Total time managing care of this patient today ____ minutes. Documented by User: Reji Richardson MD 09/19/23 08:32 Event Note Date of Service: 09/19/23
[2023-09-19] VITALS (29 sets, daily range): BP systolic 120–162; BP diastolic 63–104; PULSE 72–91; RESP 18–38; TEMP 36.4–38.2; O2SAT 88–98; BMI 44.6
[2023-09-19] MEDS: Nystatin Powder 15 GM BOTTLE 1 APPL TOPICAL ×3 (00:05→20:34)
[2023-09-19] MEDS: Albuterol Sulfate (0.083%) 2.5 MG/3 ML VIAL.NEB INHALE ×2 (01:08→21:16)
[2023-09-19] MEDS: dexmedeTOMIDidine HCL/NS 400 MCG/100 ML INFUS..BTL 16.51 MCG IVCONT (01:43)
[2023-09-19 03:42] LABS: HBc Num1 0.16 S/CO (0.00-0.79); HBsAGNum1 0.26 S/CO (0.00-0.99); Hepatitis B Core Antibody Nonreactive (Nonreactive); Hepatitis B Surface Antigen Negative (Negative); ~HepC Num1 0.62 S/CO (0.00-0.79); ~Hepatitis B Surface Antibody REACTIVE (Nonreactive)
[2023-09-19 03:43] LABS: Hepatitis C Ab Exposure Source NonReactive (Nonreactive)
[2023-09-19] MEDS: LORazepam 2 MG/ML VIAL 1 MG IVPUSH ×2 (05:00→21:16)
--- NOTE | 2023-09-19 05:25 | PC.NURSE ---
Assumed care of pt at 2300. Pt on precedex drip that was being weaned. Pt was calm with low Ciwa and drip was shut off. Pt able to follow simple commands. He would fall asleep quickly. No resp distress. Resp rate 25-34. O2 on at 4L via NC. HOB up 40 degrees. Bp stable. Monitor: NSR, rate 70's-80's, no ectopy. Pt woke up and was trying to pull off library monitor, iv's, O2 etc. Had to void and trying to get oob. Not able to void in urinol and thus was straight cathed for 350ml. Precedex restarted and sitter in room with pt. Precedex worked and pt fell back asleep. Then at approx 0445 he woke again and very restless. Precedex increased. Voided in urinol 100 ml abdi urine. Pt continues on precedex drip and at present is asleep. BP 149/83. Monitor shows NSR, rate 78-80's, no ectopy. HOB up 40 degrees.
[2023-09-19 05:56] LABS: Venous Blood Gas Refer to POC result
[2023-09-19 05:56] LABS: MANUAL DIFF FLAG NO
[2023-09-19 05:58] LABS: Basophils Percent Auto 0.3 % (0-2); Eosinophils Absolute Auto 0.1 X10*3/uL (0.0-0.4); Eosinophils Percent Auto 0.8 % (0-4); Hematocrit 38.8 % (42.0-52.0); Hemoglobin 13.1 g/dl (14.0-18.0); Imm Gran Abs Auto 0.06 X10*3/uL (0.00-0.03); Imm Gran Pct Auto 0.7 % (0.0-0.4); Lymphocytes Absolute Auto 1.4 X10*3/uL (1.2-4.9); Lymphocytes Percent Auto 15.3 % (20-40); Mean Corpuscular HGB Conc 33.8 g/dl (31.0-36.0); Mean Corpuscular Volume 88.8 fL (80.0-98.0); Mean Platelet Volume 12.1 fL (9.4-12.4); Monocytes Absolute Auto 1.2 X10*3/uL (0.1-1.2); Monocytes Percent Auto 13.1 % (2-11); Neutrophils Absolute Auto 6.2 x10*3/uL (2.0-8.3); Neutrophils Percent Auto 69.8 % (45-73); Platelet Count 125 X10*3/uL (160-400); Red Blood Count 4.37 X10*6/uL (4.60-5.80); Red Cell Distribution Width 15.4 % (11.0-16.0); White Blood Count 8.9 X10*3/uL (4.8-10.8)
[2023-09-19] MEDS: dexmedeTOMIDidine HCL/NS 400 MCG/100 ML INFUS..BTL 42.93 MCG IVCONT ×3 (06:00→15:04)
[2023-09-19 06:01] LABS: VBG Base Excess 5.5 mmol/L; VBG HCO3 27 mmol/L (22-26); VBG pCO2 32 mmHg; VBG pH 7.54 (7.32-7.43); VBG pO2 78 mmHg
[2023-09-19 06:18] LABS: Alanine Aminotransferase 47 U/L (0-40); Albumin Level 3.2 g/dL (3.5-5.0); Alkaline Phosphatase 150 U/L (39-117); Anion Gap 16 (12-20); Aspartate Amino Transferase 50 U/L (5-37); Blood Urea Nitrogen 9 mg/dL (9-16); Carbon Dioxide 23 mmol/L (22-29); Chloride 102 mmol/L (96-108); Creatinine Clr Calc Pharmacy 142.2; Estimated Glomerular Filt Rate > 60; Glucose Random 102 mg/dL (60-115); Magnesium 2.1 mg/dL (1.6-2.6); Phosphorus 2.2 mg/dL (2.7-4.5); Potassium 3.3 mmol/L (3.3-5.1); Sodium 138 mmol/L (135-145); Total Protein 6.6 g/dL (6.5-8.0)
[2023-09-19] MEDS: Potassium Phosphate/NS 15 MMOL/250 ML PLAST..BAG 62.5 MMOL IV (06:35)
[2023-09-19 06:47] LABS: Folate 10.7 ng/mL (> or = 4.0); Vitamin B12 1141 pg/mL (200-900)
--- NOTE | 2023-09-19 08:32 | P.PNCC_ITS ---
Subjective Subjective Date of Service: 09/19/23 Interval History: 67-year-old gentleman with underlying history traumatic brain injury, PTSD, panic disorder, alcohol abuse with prior delirium tremens admitted on 09/14/2023 with alcohol intoxication further complicated by delirium tremens now requiring sedative drips. No events overnight. Critical Care Time (minutes): 30 Physical Exam 2 Vital Signs: Vital Signs: Last Vital Signs Temp 97.8 F 09/19/23 08:00 Pulse 78 09/19/23 08:00 Resp 34 H 09/19/23 08:00 BP 145/78 H 09/19/23 08:00 Pulse Ox 92 09/19/23 08:00 O2 Del Method Nasal Cannula 09/19/23 08:00 O2 Flow Rate 4 09/19/23 08:00 BMI result Body Mass Index 44.6 Const: General: no acute distress and lethargic (Arousable, intermittently agitated) Orientation/consciousness: lethargic (Arousable, intermittently agitated) Eyes: Sclerae: sclerae normal EOM: EOMs intact bilaterally Neck: Neck: Yes no lymphadenopathy, Yes trachea midline and Yes supple Resp: Effort & Inspection: normal respiratory effort and no respiratory distress Auscultation: clear to auscultation bilaterally Cardio: Rate: regular rate Rhythm: regular rhythm Heart sounds: no gallops, no murmurs and no rubs GI: Palpation (GI): Soft to palpation and Other GI palpation findings present ( Nontender) Auscultation: normal bowel sounds Extrem: General: Yes no pedal edema, No clubbing and No cyanosis Objective Data Labs 09/19/23 05:51 09/19/23 05:51 Labs: Laboratory Results - last 24 hr 09/18/23 09/18/23 09/18/23 09:02 09:05 18:10 WBC 11.6 H RBC 4.35 L Hgb 13.0 L Hct 38.6 L MCV 88.7 MCH 29.9 MCHC 33.7 RDW 15.5 Plt Count 125 L MPV 11.6 Immature Gran % (Auto) Neut % (Auto) Lymph % (Auto) [place] % (Auto) Eos % (Auto) Baso % (Auto) Lymph # (Auto) [place] # (Auto) Eos # (Auto) Baso # (Auto) Abs Immat Gran (auto) Absolute Neuts (auto) Absolute Nucleated RBC 0.000 Nucleated RBC % (auto) 0.0 O2 Saturation 89.0 ABG pH at Pt Temp 7.46 H ABG pCO2 at Pt Temp 38 ABG pO2 at Pt Temp 60 L ABG HCO3 27 H ABG Base Excess (Actual) 3.9 VBG pH VBG pCO2 VBG pO2 VBG HCO3 VBG O2 Saturation VBG Base Excess Sodium 135 Potassium 3.2 L Chloride 99 Carbon Dioxide 25 Anion Gap 14 BUN 10 Creatinine 0.73 Estim Creat Clear Calc 133.9 Estimated GFR > 60 Random Glucose 97 Calcium 8.0 L D Phosphorus Magnesium 1.4 L* Total Bilirubin AST ALT Alkaline Phosphatase Total Protein Albumin Vitamin B12 Folate Hep Bs Antigen Negative Hep Bs Antibody REACTIVE Hep B Core Total Ab Nonreactive Hepatitis C Antibody NonReactive HIV 1&2 Ab/P24 Ag 4thGn Nonreactive 09/19/23 09/19/23 05:51 05:54 WBC 8.9 RBC 4.37 L Hgb 13.1 L Hct 38.8 L MCV 88.8 MCH 30.0 MCHC 33.8 RDW 15.4 Plt Count 125 L MPV 12.1 Immature Gran % (Auto) 0.7 H Neut % (Auto) 69.8 Lymph % (Auto) 15.3 L [place] % (Auto) 13.1 H Eos % (Auto) 0.8 Baso % (Auto) 0.3 Lymph # (Auto) 1.4 [place] # (Auto) 1.2 Eos # (Auto) 0.1 Baso # (Auto) 0.0 Abs Immat Gran (auto) 0.06 H Absolute Neuts (auto) 6.2 Absolute Nucleated RBC 0.000 Nucleated RBC % (auto) 0.0 O2 Saturation ABG pH at Pt Temp ABG pCO2 at Pt Temp ABG pO2 at Pt Temp ABG HCO3 ABG Base Excess (Actual) VBG pH 7.54 H VBG pCO2 32 VBG pO2 78 VBG HCO3 27 H VBG O2 Saturation 97.0 VBG Base Excess 5.5 Sodium 138 Potassium 3.3 Chloride 102 Carbon Dioxide 23 Anion Gap 16 BUN 9 Creatinine 0.69 Estim Creat Clear Calc 142.2 Estimated GFR > 60 Random Glucose 102 Calcium 9.0 D Phosphorus 2.2 L Magnesium 2.1 Total Bilirubin 1.0 AST 50 H ALT 47 H Alkaline Phosphatase 150 H Total Protein 6.6 Albumin 3.2 L Vitamin B12 1141 H Folate 10.7 Hep Bs Antigen Hep Bs Antibody Hep B Core Total Ab Hepatitis C Antibody HIV 1&2 Ab/P24 Ag 4thGn Progress Note: A&P Assessment and plan (1) Delirium tremens: Status: Acute Plan Assessment: 67-year-old gentleman with alcohol abuse admitted with alcohol intoxication now complicated by delirium tremens Plan: Neuro: Delirium tremens, continue to titrate off sedative drips as tolerated. Cardiac: No acute issues. Pulmonary: No acute issues. Renal: No acute issues. Endo: No acute issues. GI: No acute issues. ID: No acute issues Heme/Onc: No acute issues. Psych: No acute issues. Miscellaneous: No acute issues. Prophylaxis: Heparin Diet: NPO Critical care time spent: 30 minutes Quality Stroke Does the patient have a stroke diagnosis?: No VTE Prior VTE?: No VTE Risk Level:: Medical - moderate - high VTE Device Contraindication: Treatment Not Indicated VTE Drug Contraindication: N/A - Med Ordered
[2023-09-19] MEDS: 0.9 % Sodium Chloride Flush 3 ML SYRINGE IVFLUSH ×4 (09:22→22:48)
[2023-09-19] MEDS: Buprenorphine/Naloxone 8/2 mg TAB.SUBL 1 TAB SUBLINGUAL ×2 (09:27→20:34)
[2023-09-19] MEDS: PHENobarbitaL sodium 130 MG/ML IM ONCE 275 MG IM (09:29)
[2023-09-19] MEDS: Famotidine/PF 20 MG/2 ML VIAL IVPUSH (09:34)
[2023-09-19] MEDS: LORazepam 2 MG/ML VIAL IVPUSH (10:31)
[2023-09-19] MEDS: dexmedeTOMIDidine HCL/NS 400 MCG/100 ML INFUS..BTL 49.54 MCG IVCONT ×3 (10:44→22:47)
--- NOTE | 2023-09-19 11:31 | MHC.CM.PN ---
Pt transferred to ICU for precedex continuous infusion d/t ETOH w/d. Pt from home without services - has DME but will need transportation. CM to follow for d/c plan finalization.
[2023-09-19] MEDS: Potassium Chloride/H20 10 MEQ/100 ML PIGGYBACK 100 MEQ IV ×2 (11:39→12:43)
[2023-09-19] MEDS: PHENobarbitaL sodium 130 MG/ML VIAL IM Q3Hx2 205 MG IM ×2 (12:42→15:37)
[2023-09-19] MEDS: Enoxaparin Sodium 40 MG/0.4 ML SYRINGE SUBCUT (12:44)
[2023-09-19] MEDS: cloNIDine 0.1 MG PATCH.TDWK TRANSDERMA (13:19)
[2023-09-19] MEDS: dexmedeTOMIDidine HCL/NS 400 MCG/100 ML INFUS..BTL 36.33 MCG IVCONT (17:33)
[2023-09-19] MEDS: dexmedeTOMIDidine HCL/NS 400 MCG/100 ML INFUS..BTL 23.12 MCG IVCONT (20:23)
[2023-09-19] MEDS: PHENobarbitaL 15 MG TABLET 45 MG PO (20:59)
[2023-09-19] MEDS: Mirtazapine 7.5 MG TABLET PO (21:00)
[2023-09-20] VITALS (29 sets, daily range): BP systolic 95–158; BP diastolic 50–79; PULSE 69–81; RESP 18–39; TEMP 32–38.4; O2SAT 90–96; BMI 44.2
[2023-09-20] MEDS: dexmedeTOMIDidine HCL/NS 400 MCG/100 ML INFUS..BTL 46.24 MCG IVCONT (00:53)
[2023-09-20] MEDS: dexmedeTOMIDidine HCL/NS 400 MCG/100 ML INFUS..BTL 36.33 MCG IVCONT ×3 (03:23→14:58)
[2023-09-20] MEDS: LORazepam 2 MG/ML VIAL 1 MG IVPUSH ×2 (05:02→05:28)
[2023-09-20] MEDS: Albuterol Sulfate (0.083%) 2.5 MG/3 ML VIAL.NEB INHALE (05:27)
[2023-09-20] MEDS: dexmedeTOMIDidine HCL/NS 400 MCG/100 ML INFUS..BTL 49.54 MCG IVCONT (05:45)
[2023-09-20 05:51] LABS: MANUAL DIFF FLAG NO
[2023-09-20 05:52] LABS: Basophils Percent Auto 0.5 % (0-2); Eosinophils Absolute Auto 0.1 X10*3/uL (0.0-0.4); Eosinophils Percent Auto 0.9 % (0-4); Hematocrit 38.9 % (42.0-52.0); Hemoglobin 13.3 g/dl (14.0-18.0); Imm Gran Abs Auto 0.07 X10*3/uL (0.00-0.03); Imm Gran Pct Auto 0.9 % (0.0-0.4); Lymphocytes Absolute Auto 1.9 X10*3/uL (1.2-4.9); Lymphocytes Percent Auto 23.2 % (20-40); Mean Corpuscular HGB Conc 34.2 g/dl (31.0-36.0); Mean Corpuscular Volume 87.8 fL (80.0-98.0); Mean Platelet Volume 11.5 fL (9.4-12.4); Monocytes Absolute Auto 1.5 X10*3/uL (0.1-1.2); Monocytes Percent Auto 18.5 % (2-11); Neutrophils Absolute Auto 4.6 x10*3/uL (2.0-8.3); Platelet Count 163 X10*3/uL (160-400); Red Blood Count 4.43 X10*6/uL (4.60-5.80); Red Cell Distribution Width 14.7 % (11.0-16.0); White Blood Count 8.1 X10*3/uL (4.8-10.8)
[2023-09-20 05:53] LABS: Venous Blood Gas Refer to POC result
[2023-09-20 05:58] LABS: VBG Base Excess 2.6 mmol/L; VBG HCO3 24 mmol/L (22-26); VBG pCO2 31 mmHg; VBG pH 7.51 (7.32-7.43); VBG pO2 79 mmHg
[2023-09-20 06:05] LABS: Alanine Aminotransferase 37 U/L (0-40); Albumin Level 3.1 g/dL (3.5-5.0); Alkaline Phosphatase 139 U/L (39-117); Anion Gap 17 (12-20); Aspartate Amino Transferase 40 U/L (5-37); Bilirubin Total 0.9 mg/dL (0.0-1.0); Blood Urea Nitrogen 9 mg/dL (9-16); Calcium 8.8 mg/dL (8.4-10.2); Carbon Dioxide 23 mmol/L (22-29); Chloride 104 mmol/L (96-108); Creatinine Clr Calc Pharmacy 145.8; Estimated Glomerular Filt Rate > 60; Glucose Random 105 mg/dL (60-115); Magnesium 1.8 mg/dL (1.6-2.6); Phosphorus 2.4 mg/dL (2.7-4.5); Potassium 3.4 mmol/L (3.3-5.1); Sodium 141 mmol/L (135-145); Total Protein 6.5 g/dL (6.5-8.0)
[2023-09-20] MEDS: Potassium Phosphate/NS 15 MMOL/250 ML PLAST..BAG 62.5 MMOL IV (06:18)
[2023-09-20] MEDS: dexmedeTOMIDidine HCL/NS 400 MCG/100 ML INFUS..BTL 42.93 MCG IVCONT ×2 (08:01→13:08)
[2023-09-20] MEDS: 0.9 % Sodium Chloride Flush 3 ML SYRINGE IVFLUSH ×3 (09:53→23:46)
[2023-09-20] MEDS: Famotidine/PF 20 MG/2 ML VIAL IVPUSH (09:53)
[2023-09-20] MEDS: Furosemide 20 MG/2 ML VIAL IVPUSH (09:53)
[2023-09-20] MEDS: Nystatin Powder 15 GM BOTTLE 1 APPL TOPICAL ×2 (09:54→20:42)
--- NOTE | 2023-09-20 10:07 | P.PNCC_ITS ---
Subjective Subjective Date of Service: 09/20/23 Interval History: 67-year-old gentleman with underlying history traumatic brain injury, PTSD, panic disorder, alcohol abuse with prior delirium tremens admitted on 09/14/2023 with alcohol intoxication further complicated by delirium tremens now requiring sedative drips. Overnight with intermittent agitation with increasing sedative requirements and with aspiration events early in a.m. requiring intubation. Critical Care Time (minutes): 60 Physical Exam 2 Vital Signs: Vital Signs: Last Vital Signs Temp 100.0 F 09/20/23 09:56 Pulse 75 09/20/23 09:56 Resp 37 H 09/20/23 09:56 BP 139/69 09/20/23 09:56 Pulse Ox 93 09/20/23 09:56 O2 Del Method Oxymask 09/20/23 09:56 O2 Flow Rate 3.5 09/20/23 09:56 BMI result Body Mass Index 44.2 Const: General: no acute distress and other (Sedated on the vent) Eyes: Sclerae: sclerae normal EOM: EOMs intact bilaterally Neck: Neck: Yes no lymphadenopathy, Yes trachea midline and Yes supple Resp: Effort & Inspection: normal respiratory effort and no respiratory distress Auscultation: clear to auscultation bilaterally Cardio: Rate: regular rate Rhythm: regular rhythm Heart sounds: no gallops, no murmurs and no rubs GI: Palpation (GI): Soft to palpation and Other GI palpation findings present ( Nontender) Auscultation: normal bowel sounds Extrem: General: No clubbing, No cyanosis and Yes edema (1+ bilateral) Objective Data Labs 09/20/23 05:46 09/20/23 05:46 Labs: Laboratory Results - last 24 hr 09/20/23 09/20/23 05:46 05:49 WBC 8.1 RBC 4.43 L Hgb 13.3 L Hct 38.9 L MCV 87.8 MCH 30.0 MCHC 34.2 RDW 14.7 Plt Count 163 D MPV 11.5 Immature Gran % (Auto) 0.9 H Neut % (Auto) 56.0 Lymph % (Auto) 23.2 [place] % (Auto) 18.5 H Eos % (Auto) 0.9 Baso % (Auto) 0.5 Lymph # (Auto) 1.9 [place] # (Auto) 1.5 H Eos # (Auto) 0.1 Baso # (Auto) 0.0 Abs Immat Gran (auto) 0.07 H Absolute Neuts (auto) 4.6 Absolute Nucleated RBC 0.000 Nucleated RBC % (auto) 0.0 VBG pH 7.51 H VBG pCO2 31 VBG pO2 79 VBG HCO3 24 VBG O2 Saturation 98.0 VBG Base Excess 2.6 Sodium 141 Potassium 3.4 Chloride 104 Carbon Dioxide 23 Anion Gap 17 BUN 9 Creatinine 0.67 Estim Creat Clear Calc 145.8 Estimated GFR > 60 Random Glucose 105 Calcium 8.8 Phosphorus 2.4 L Magnesium 1.8 Total Bilirubin 0.9 AST 40 H ALT 37 Alkaline Phosphatase 139 H Total Protein 6.5 Albumin 3.1 L Progress Note: A&P Assessment and plan (1) Delirium tremens: Status: Acute (2) Edema: Status: Acute Plan Assessment: 67-year-old gentleman with alcohol abuse admitted with alcohol intoxication now complicated by delirium tremens Plan: Neuro: Delirium tremens, continue to titrate off sedative drips as tolerated. Cardiac: No acute issues. Pulmonary: Intubated for airway protection, continue to titrate off ventilatory support as tolerated. Renal: No acute issues. Endo: No acute issues. GI: No acute issues. ID: No acute issues Heme/Onc: No acute issues. Psych: No acute issues. Miscellaneous: No acute issues. Prophylaxis: Heparin, ppi Diet: Tube feeds Critical care time spent: 30 minutes Quality Stroke Does the patient have a stroke diagnosis?: No VTE Prior VTE?: No VTE Risk Level:: Medical - moderate - high VTE Device Contraindication: Treatment Not Indicated VTE Drug Contraindication: N/A - Med Ordered
[2023-09-20] MEDS: LORazepam 2 MG/ML VIAL IVPUSH (10:22)
[2023-09-20] MEDS: propofoL 200 MG/20 ML VIAL 100 MG IVPUSH (10:30)
--- NOTE | 2023-09-20 10:31 | W.PM.CCHP ---
Procedures Date of Service Date of Service: 09/20/23 Intubation Intubation Comments: Patient with hypoxic events secondary to pulmonary aspiration and significant agitation requiring sedative drips emergently intubated for airway protection with 7.5 cuffed ET tube under glide scope guidance with no immediate complications. X-ray for tube position is pending. Consent for Procedure: Emergent-no informed consent obtained Sedative: propofol Mg given: 100
[2023-09-20] MEDS: propofoL 1,000 MG/100 ML VIAL 23.74 MG IVCONT ×5 (10:32→23:44)
[2023-09-20] MEDS: Chlorhexidine Gluc Oral Rinse 15 ML MOUTHWASH BUCCAL ×2 (14:35→20:42)
[2023-09-20] MEDS: Enoxaparin Sodium 40 MG/0.4 ML SYRINGE SUBCUT (14:35)
--- NOTE | 2023-09-20 17:35 | PC.NURSE ---
Assumed care of patient at 0700 Per Velasquez GILL gtt titrated down from @1.3 to 1.1 mcg/kg/min. Pt provided morning care. Pt became agitated, pulling at medical lines, removed one IV. MD called to beside. Pt unable to follow commands or redirection. Pt cued to cough for wet voice. Pt unable to follow commands. Pt has weak cough and risk for aspiration. 10:22 Per MD 2mg Ativan IVP given for agitation, RASS 2+ Per MD plan for intubation for airway protection 10:30 RT, RN and MD at beside. 100 mg IVP Propofol given per MD. 10:32 Pt intubated, ET tube 7.5, 24 @ lip. Propofol gtt started per protocol OG tube placed per MD Chest X-ray obtained to confirm placement of ET tube and OG tube. Pt morning bed bath completed. Nystatin powder applied to fungal rash in groin folds. 14:30 tube feeds started per orders: Promote @20 ml/hr Pt repositioned with wedges Q2H, airloss bed applied High fall precautions in place
[2023-09-20] MEDS: dexmedeTOMIDidine HCL/NS 400 MCG/100 ML INFUS..BTL 23.12 MCG IVCONT ×2 (18:24→22:34)
[2023-09-20] MEDS: Mirtazapine 7.5 MG TABLET PO (20:42)
[2023-09-20] MEDS: Valproic Acid (as Sodium Salt) 1,000 MG in Dextrose 5 % 50 ML 60 MG IV (20:43)
[2023-09-21] VITALS (32 sets, daily range): BP systolic 94–130; BP diastolic 46–72; PULSE 59–82; RESP 16–34; TEMP 32–38.1; O2SAT 89–94; BMI 44.7
[2023-09-21] MEDS: Albuterol Sulfate (0.083%) 2.5 MG/3 ML VIAL.NEB INHALE (01:45)
[2023-09-21] MEDS: propofoL 1,000 MG/100 ML VIAL 31.66 MG IVCONT ×8 (02:58→23:08)
[2023-09-21] MEDS: dexmedeTOMIDidine HCL/NS 400 MCG/100 ML INFUS..BTL 23.12 MCG IVCONT (02:59)
[2023-09-21 04:46] LABS: Basophils Percent Auto 0.7 % (0-2); Eosinophils Absolute Auto 0.1 X10*3/uL (0.0-0.4); Eosinophils Percent Auto 1.6 % (0-4); Hematocrit 39.2 % (42.0-52.0); Hemoglobin 12.9 g/dl (14.0-18.0); Imm Gran Abs Auto 0.07 X10*3/uL (0.00-0.03); Imm Gran Pct Auto 1.2 % (0.0-0.4); Lymphocytes Absolute Auto 1.7 X10*3/uL (1.2-4.9); Lymphocytes Percent Auto 27.6 % (20-40); MANUAL DIFF FLAG SCAN; Mean Corpuscular HGB Conc 32.9 g/dl (31.0-36.0); Mean Corpuscular Hemoglobin 29.5 pg (27.0-33.0); Mean Corpuscular Volume 89.5 fL (80.0-98.0); Mean Platelet Volume 11.4 fL (9.4-12.4); Monocytes Absolute Auto 1.2 X10*3/uL (0.1-1.2); Monocytes Percent Auto 20.2 % (2-11); Neutrophils Percent Auto 48.7 % (45-73); Platelet Count 188 X10*3/uL (160-400); Red Blood Count 4.38 X10*6/uL (4.60-5.80); SCAN SMEAR FLAG 1; White Blood Count 6.1 X10*3/uL (4.8-10.8)
[2023-09-21 04:47] LABS: Venous Blood Gas Refer to POC result
[2023-09-21 04:50] LABS: VBG Base Excess 6.2 mmol/L; VBG HCO3 28 mmol/L (22-26); VBG pCO2 33 mmHg; VBG pH 7.53 (7.32-7.43); VBG pO2 78 mmHg
[2023-09-21 05:03] LABS: Alanine Aminotransferase 36 U/L (0-40); Albumin Level 2.8 g/dL (3.5-5.0); Alkaline Phosphatase 123 U/L (39-117); Anion Gap 14 (12-20); Aspartate Amino Transferase 52 U/L (5-37); Bilirubin Total 0.7 mg/dL (0.0-1.0); Blood Urea Nitrogen 8 mg/dL (9-16); Carbon Dioxide 26 mmol/L (22-29); Chloride 104 mmol/L (96-108); Creatinine Clr Calc Pharmacy 141.6; Estimated Glomerular Filt Rate > 60; Glucose Random 131 mg/dL (60-115); Phosphorus 2.8 mg/dL (2.7-4.5); Potassium 3.4 mmol/L (3.3-5.1); Sodium 141 mmol/L (135-145); Total Protein 6.1 g/dL (6.5-8.0)
[2023-09-21 05:05] LABS: SLIDE REVIEW VERIFIED
[2023-09-21] MEDS: Albumin Human 25 % 100 ML IV (05:47)
[2023-09-21] MEDS: 0.9 % Sodium Chloride Flush 3 ML SYRINGE IVFLUSH ×3 (07:08→23:09)
[2023-09-21] MEDS: Chlorhexidine Gluc Oral Rinse 15 ML MOUTHWASH BUCCAL ×3 (07:30→20:19)
[2023-09-21] MEDS: Famotidine/PF 20 MG/2 ML VIAL IVPUSH (07:30)
[2023-09-21] MEDS: Nystatin Powder 15 GM BOTTLE 1 APPL TOPICAL ×2 (07:39→20:19)
[2023-09-21] MEDS: Valproic Acid (as Sodium Salt) 1,000 MG in Dextrose 5 % 50 ML 60 MG IV ×2 (07:54→20:19)
[2023-09-21] MEDS: dexmedeTOMIDidine HCL/NS 400 MCG/100 ML INFUS..BTL 16.51 MCG IVCONT ×2 (08:28→14:37)
[2023-09-21] MEDS: Lactulose 20 GM/30 ML SOLUTION 30 GM PO ×2 (09:10→20:19)
--- NOTE | 2023-09-21 09:25 | PM.CCPN ---
Subjective Subjective Date of Service: 09/21/23 Interval History: 67-year-old gentleman with underlying history traumatic brain injury, PTSD, panic disorder, alcohol abuse with prior delirium tremens admitted on 09/14/2023 with alcohol intoxication further complicated by delirium tremens current sedative drips and intubation for airway protection. No events overnight. Critical Care Time (minutes): 60 Physical Exam Vital Signs: Vital Signs: Last Vital Signs Temp 99.9 F 09/21/23 08:43 Pulse 66 09/21/23 08:43 Resp 23 H 09/21/23 08:43 BP 112/67 09/21/23 08:43 Pulse Ox 90 L 09/21/23 08:43 O2 Del Method Mechanical Ventil ation 09/21/23 08:43 O2 Flow Rate 40 09/21/23 06:00 FiO2 40 09/21/23 08:43 BMI result Body Mass Index 44.7 Const: General: no acute distress and other (Sedated on the vent) Nutritional Appearance: obese Eyes: Sclerae: sclerae normal EOM: EOMs intact bilaterally Neck: Neck: Yes no lymphadenopathy, Yes trachea midline and Yes supple Resp: Effort & Inspection: normal respiratory effort and no respiratory distress Auscultation: clear to auscultation bilaterally Cardio: Rate: regular rate Rhythm: regular rhythm Heart sounds: no gallops, no murmurs and no rubs GI: Palpation (GI): Soft to palpation and Other GI palpation findings present ( Nontender) Auscultation: normal bowel sounds Extrem: General: Yes no pedal edema, No clubbing and No cyanosis Objective Data Labs 09/21/23 04:40 09/21/23 04:40 Labs: Laboratory Results - last 24 hr 09/21/23 09/21/23 04:40 04:41 WBC 6.1 RBC 4.38 L Hgb 12.9 L Hct 39.2 L MCV 89.5 MCH 29.5 MCHC 32.9 RDW 15.0 Plt Count 188 MPV 11.4 Immature Gran % (Auto) 1.2 H Neut % (Auto) 48.7 Lymph % (Auto) 27.6 [place] % (Auto) 20.2 H Eos % (Auto) 1.6 Baso % (Auto) 0.7 Lymph # (Auto) 1.7 [place] # (Auto) 1.2 Eos # (Auto) 0.1 Baso # (Auto) 0.0 Abs Immat Gran (auto) 0.07 H Absolute Neuts (auto) 3.0 Absolute Nucleated RBC 0.000 Nucleated RBC % (auto) 0.0 Smear Tech's Comments VERIFIED VBG pH 7.53 H VBG pCO2 33 VBG pO2 78 VBG HCO3 28 H VBG O2 Saturation 98.0 VBG Base Excess 6.2 Sodium 141 Potassium 3.4 Chloride 104 Carbon Dioxide 26 Anion Gap 14 BUN 8 L Creatinine 0.69 Estim Creat Clear Calc 141.6 Estimated GFR > 60 Random Glucose 131 H Calcium 9.0 Phosphorus 2.8 Magnesium 2.0 Total Bilirubin 0.7 AST 52 H ALT 36 Alkaline Phosphatase 123 H Total Protein 6.1 L Albumin 2.8 L Progress Note: A&P Assessment and plan (1) Delirium tremens: Status: Acute (2) Acute respiratory failure with hypoxia: Status: Acute (3) Pulmonary aspiration: Status: Acute Plan Assessment: 67-year-old gentleman with alcohol abuse admitted with alcohol intoxication now complicated by delirium tremens Plan: Neuro: Delirium tremens, continue to titrate off sedative drips as tolerated. Cardiac: No acute issues. Pulmonary: Intubated for airway protection, continue to titrate off ventilatory support as tolerated. Renal: No acute issues. Endo: No acute issues. GI: No acute issues. ID: No acute issues Heme/Onc: No acute issues. Psych: No acute issues. Miscellaneous: No acute issues. Prophylaxis: Heparin, ppi Diet: Tube feeds Critical care time spent: 60 minutes Quality Stroke Does the patient have a stroke diagnosis?: No VTE Prior VTE?: No VTE Risk Level:: Medical - moderate - high VTE Device Contraindication: Treatment Not Indicated VTE Drug Contraindication: N/A - Med Ordered
[2023-09-21] MEDS: Enoxaparin Sodium 40 MG/0.4 ML SYRINGE SUBCUT (14:38)
[2023-09-21] MEDS: Mirtazapine 7.5 MG TABLET PO (20:19)
[2023-09-21] MEDS: dexmedeTOMIDidine HCL/NS 400 MCG/100 ML INFUS..BTL 13.21 MCG IVCONT (22:06)
[2023-09-22] VITALS (36 sets, daily range): BP systolic 103–160; BP diastolic 57–87; PULSE 60–93; RESP 19–42; TEMP 33.8–38.5; O2SAT 89–97; BMI 46.5
--- NOTE | 2023-09-22 | ECG_ITS ---
Test Reason : QTc Monitoring Blood Pressure : / mmHG Vent. Rate : 082 BPM Atrial Rate : 082 BPM P-R Int : 178 ms QRS Dur : 078 ms QT Int : 354 ms P-R-T Axes : 033 014 013 degrees QTc Int : 413 ms Normal sinus rhythm Normal ECG When compared with ECG of 17-SEP-2023 11:21, Premature atrial complexes are no longer Present Borderline criteria for Inferior infarct are no longer Present Referred By: Daily Diop Electronically Signed By:Alvarez Reyna
[2023-09-22] MEDS: propofoL 1,000 MG/100 ML VIAL 31.66 MG IVCONT ×2 (02:19→05:26)
[2023-09-22 05:18] LABS: MANUAL DIFF FLAG NO
[2023-09-22 05:18] LABS: VBG Base Excess 6.6 mmol/L; VBG HCO3 30 mmol/L (22-26); VBG pCO2 39 mmHg; VBG pH 7.49 (7.32-7.43); VBG pO2 38 mmHg
[2023-09-22 05:19] LABS: Venous Blood Gas Refer to POC result
[2023-09-22 05:19] LABS: Basophils Absolute Auto 0.1 X10*3/uL (0.0-0.2); Basophils Percent Auto 1.1 % (0-2); Eosinophils Absolute Auto 0.2 X10*3/uL (0.0-0.4); Hematocrit 39.3 % (42.0-52.0); Hemoglobin 12.9 g/dl (14.0-18.0); Imm Gran Abs Auto 0.11 X10*3/uL (0.00-0.03); Lymphocytes Absolute Auto 1.7 X10*3/uL (1.2-4.9); Lymphocytes Percent Auto 31.4 % (20-40); Mean Corpuscular HGB Conc 32.8 g/dl (31.0-36.0); Mean Corpuscular Hemoglobin 29.8 pg (27.0-33.0); Mean Corpuscular Volume 90.8 fL (80.0-98.0); Mean Platelet Volume 11.4 fL (9.4-12.4); Neutrophils Absolute Auto 2.4 x10*3/uL (2.0-8.3); Neutrophils Percent Auto 43.5 % (45-73); Platelet Count 237 X10*3/uL (160-400); Red Blood Count 4.33 X10*6/uL (4.60-5.80); White Blood Count 5.4 X10*3/uL (4.8-10.8)
[2023-09-22] MEDS: dexmedeTOMIDidine HCL/NS 400 MCG/100 ML INFUS..BTL 13.21 MCG IVCONT (05:28)
[2023-09-22 05:33] LABS: Alanine Aminotransferase 67 U/L (0-40); Albumin Level 3.2 g/dL (3.5-5.0); Alkaline Phosphatase 133 U/L (39-117); Anion Gap 14 (12-20); Aspartate Amino Transferase 116 U/L (5-37); Bilirubin Total 0.8 mg/dL (0.0-1.0); Blood Urea Nitrogen 7 mg/dL (9-16); Carbon Dioxide 28 mmol/L (22-29); Chloride 104 mmol/L (96-108); Creatinine Clr Calc Pharmacy 142.5; Estimated Glomerular Filt Rate > 60; Glucose Random 117 mg/dL (60-115); Magnesium 2.1 mg/dL (1.6-2.6); Potassium 3.5 mmol/L (3.3-5.1); Sodium 142 mmol/L (135-145); Total Protein 6.5 g/dL (6.5-8.0)
[2023-09-22] MEDS: Albumin Human 25 % 100 ML IV ×2 (05:59→11:35)
[2023-09-22] MEDS: Potassium Chloride Packet 20 MEQ PACKET 40 MEQ OG-TUBE (05:59)
--- NOTE | 2023-09-22 07:54 | P.PNCC_ITS ---
Subjective Subjective Date of Service: 09/22/23 Critical Care Time (minutes): 60 Physical Exam 2 Vital Signs: Vital Signs: Last Vital Signs Temp 99.5 F 09/22/23 07:00 Pulse 65 09/22/23 07:00 Resp 32 H 09/22/23 07:00 BP 132/67 09/22/23 07:00 Pulse Ox 93 09/22/23 07:00 O2 Del Method Mechanical Ventil ation 09/22/23 07:00 O2 Flow Rate 40 09/21/23 06:00 FiO2 30 09/22/23 07:50 BMI result Body Mass Index 46.5 Const: Other: intubated, sedated General: comfortable, no acute distress and well developed HEENT: Head: Yes normal to inspection, Yes normocephalic and Yes atraumatic Eyes: General: appearance normal, both eyes and all related structures Neck: Neck: Yes normal visual inspection, Yes full ROM, Yes trachea midline and Yes supple Chest: Other: appreciable mild expiratory wheezing Chest palpation & inspection: normal inspection of the chest Cardio: Rate: regular rate Rhythm: regular rhythm GI: Inspection: Yes normal to inspection, No Abdominal wall edema and No distended Palpation (GI): Soft to palpation, not firm, nontender, no guarding and not rigid : Male General Exam: Yes normal external exam Skin: General skin exam: no rashes or lesions noted Neuro: General: tone normal Extrem: General: Yes normal to inspection, Yes full ROM, Yes capillary refill normal and Yes no clubbing, cyanosis or edema Psych: Other: unable to assess Objective Data Labs 09/22/23 05:13 09/22/23 05:13 Labs: Laboratory Results - last 24 hr 09/22/23 09/22/23 05:08 05:13 WBC 5.4 RBC 4.33 L Hgb 12.9 L Hct 39.3 L MCV 90.8 MCH 29.8 MCHC 32.8 RDW 15.0 Plt Count 237 D MPV 11.4 Immature Gran % (Auto) 2.0 H Neut % (Auto) 43.5 L Lymph % (Auto) 31.4 [place] % (Auto) 19.0 H Eos % (Auto) 3.0 Baso % (Auto) 1.1 Lymph # (Auto) 1.7 [place] # (Auto) 1.0 Eos # (Auto) 0.2 Baso # (Auto) 0.1 Abs Immat Gran (auto) 0.11 H Absolute Neuts (auto) 2.4 Absolute Nucleated RBC 0.000 Nucleated RBC % (auto) 0.0 VBG pH 7.49 H VBG pCO2 39 VBG pO2 38 VBG HCO3 30 H VBG O2 Saturation 62.0 VBG Base Excess 6.6 Sodium 142 Potassium 3.5 Chloride 104 Carbon Dioxide 28 Anion Gap 14 BUN 7 L Creatinine 0.69 Estim Creat Clear Calc 142.5 Estimated GFR > 60 Random Glucose 117 H Calcium 9.0 Phosphorus 3.0 Magnesium 2.1 Total Bilirubin 0.8 AST 116 H ALT 67 H Alkaline Phosphatase 133 H Total Protein 6.5 Albumin 3.2 L Progress Note: A&P Assessment and plan (1) Acute respiratory failure with hypoxia: Status: Acute (2) Delirium tremens: Status: Acute (3) Pulmonary aspiration: Status: Acute (4) Alcohol withdrawal: Status: Acute Plan Patient is a 67 Y M with prior traumatic brain injury, PTSD, and alcohol misuse, c/b prior delirium tremens, initially admitted 09/13 w/ alcohol withdrawal; on 09/19, developed acute hypoxic respiratory failure, likely d/t aspiration, intubated N: intubated, sedated w/ propofol, dexmedetomidine gtts; wean as tolerated CV: no acute issues R: acute hypoxic respiratory failure, intubated 09/19; wean as tolerated GI: no acute issues; tube feeds : no acute issues H: no acute issues; chemical DVT prophylaxis ID: c/f aspiration, though w/o overt stigmata of infection E: no acute issues; to monitor hypo-/hyper-glycemia S: alcohol misuse; addiction medicine when appropriate Quality Stroke Does the patient have a stroke diagnosis?: No VTE Prior VTE?: No VTE Risk Level:: Medical - moderate - high VTE Device Contraindication: Treatment Not Indicated VTE Drug Contraindication: N/A - Med Ordered
[2023-09-22] MEDS: 0.9 % Sodium Chloride Flush 3 ML SYRINGE IVFLUSH ×3 (08:04→21:32)
[2023-09-22] MEDS: Nystatin Powder 15 GM BOTTLE 1 APPL TOPICAL ×2 (08:05→21:27)
[2023-09-22] MEDS: Famotidine/PF 20 MG/2 ML VIAL IVPUSH (08:09)
[2023-09-22] MEDS: Chlorhexidine Gluc Oral Rinse 15 ML MOUTHWASH BUCCAL ×3 (08:09→21:27)
[2023-09-22] MEDS: propofoL 1,000 MG/100 ML VIAL 15.83 MG IVCONT (08:46)
[2023-09-22] MEDS: Furosemide 20 MG/2 ML VIAL 10 MG IVPUSH ×2 (08:50→17:29)
--- NOTE | 2023-09-22 09:03 | MHC.CLN ---
PT IS INTUBATED AND SEDATED PT RECEIVING TF PROMOTE AT MAX GOAL RATE 50ML/HR PROVIDES 1200KCALS (1618KCALS WITH SEDATION; 23KCALS/KG), 75G PROTEIN (1.07G/KG), 1007ML FREE WATER FROM FORMULA RECOMMEND ADDING 240ML FREE WATER FLUSHES Q 8 HRS TO PROVIDE AN ADDITIONAL 720ML FREE WATER (1727ML TOTAL WATER; 25ML/KG) MONITOR TOLERANCE, RESIDUALS AND LYTES SEE ALSO FULL CLINICAL NUTRITION ASSESSMENT
[2023-09-22] MEDS: Valproic Acid (as Sodium Salt) 1,000 MG in Dextrose 5 % 50 ML 60 MG IV ×2 (09:04→20:04)
[2023-09-22] MEDS: dexmedeTOMIDidine HCL/NS 400 MCG/100 ML INFUS..BTL 49.54 MCG IVCONT ×2 (09:50→11:54)
[2023-09-22] MEDS: propofoL 1,000 MG/100 ML VIAL 41.58 MG IVCONT ×7 (10:38→22:37)
[2023-09-22] MEDS: propofoL 200 MG/20 ML VIAL 20 MG IVPUSH (10:41)
--- NOTE | 2023-09-22 11:08 | MHC.CM.PN ---
Call placed to [facility] for ? HCP copy and information on next of kin. No HCP [facility] file w[facility] or [facility]. Pt has a case management director from [place] [employer], Antoni Cabrera at [phone] and estranged siblings. He also has 2 sons, one of whom is a minor. CM able to contact pt's brother Rober who resides in [place] ([phone]). Rober will contact the ICU for information and may serve as a decision maker. ICU provider aware of above information. CM to follow for finalization of d/c planning needs.
--- NOTE | 2023-09-22 11:16 | PC.NURSE ---
Propofol gtt paused at [address] Dr Diop. Precedex gtt maxed per MD for RASS +1. Switched to PC 12/19 30% @ 0925 by RT. Patient positive tracking, able to squeeze hands when asked but experienced worsening agitation/restlessness regardless of frequent redirection. HR up to 110's sinus, RR mid 40's, SBP 160's - patient placed back on AC settings and resedated at [address] Diop.
[2023-09-22] MEDS: Enoxaparin Sodium 40 MG/0.4 ML SYRINGE SUBCUT (12:52)
[2023-09-22] MEDS: Acetaminophen 1,000 MG/100 ML PIGGYBACK 400 MG IV (13:43)
[2023-09-22] MEDS: dexmedeTOMIDidine HCL/NS 400 MCG/100 ML INFUS..BTL 42.93 MCG IVCONT ×3 (13:48→22:36)
[2023-09-22] MEDS: Albuterol/Iprat 2.5/0.5MG 3 ML AMPUL.NEB INHALE ×2 (15:12→20:29)
[2023-09-22] MEDS: dexmedeTOMIDidine HCL/NS 400 MCG/100 ML INFUS..BTL 36.33 MCG IVCONT ×2 (16:14→18:26)
[2023-09-23] VITALS (42 sets, daily range): BP systolic 92–172; BP diastolic 54–107; PULSE 64–97; RESP 10–28; TEMP 34.7–38.7; O2SAT 90–98; BMI 46.3
--- NOTE | 2023-09-23 | ECG_ITS ---
Test Reason : QTc Monitoring Blood Pressure : / mmHG Vent. Rate : 090 BPM Atrial Rate : 090 BPM P-R Int : 164 ms QRS Dur : 076 ms QT Int : 368 ms P-R-T Axes : 047 032 053 degrees QTc Int : 450 ms Normal sinus rhythm Nonspecific ST abnormality Abnormal ECG No previous ECGs available Referred By: Daily Diop Electronically Signed By:Alvarez Reyna
[2023-09-23] MEDS: dexmedeTOMIDidine HCL/NS 400 MCG/100 ML INFUS..BTL 42.93 MCG IVCONT ×3 (00:39→05:11)
[2023-09-23] MEDS: propofoL 1,000 MG/100 ML VIAL 41.58 MG IVCONT ×6 (00:40→12:01)
[2023-09-23] MEDS: Acetaminophen 1,000 MG/100 ML PIGGYBACK 400 MG IV (04:40)
[2023-09-23 05:23] LABS: VBG Base Excess 6.9 mmol/L; VBG HCO3 28 mmol/L (22-26); VBG pCO2 29 mmHg; VBG pH 7.58 (7.32-7.43); VBG pO2 57 mmHg
[2023-09-23 05:31] LABS: Venous Blood Gas Refer to POC result
[2023-09-23 05:43] LABS: MANUAL DIFF FLAG NO
[2023-09-23 05:45] LABS: Basophils Absolute Auto 0.1 X10*3/uL (0.0-0.2); Eosinophils Absolute Auto 0.1 X10*3/uL (0.0-0.4); Eosinophils Percent Auto 1.4 % (0-4); Hematocrit 41.9 % (42.0-52.0); Hemoglobin 13.7 g/dl (14.0-18.0); Imm Gran Abs Auto 0.19 X10*3/uL (0.00-0.03); Imm Gran Pct Auto 2.6 % (0.0-0.4); Lymphocytes Absolute Auto 2.1 X10*3/uL (1.2-4.9); Lymphocytes Percent Auto 29.5 % (20-40); Mean Corpuscular HGB Conc 32.7 g/dl (31.0-36.0); Mean Corpuscular Hemoglobin 29.7 pg (27.0-33.0); Mean Corpuscular Volume 90.7 fL (80.0-98.0); Mean Platelet Volume 11.4 fL (9.4-12.4); Monocytes Absolute Auto 1.4 X10*3/uL (0.1-1.2); Monocytes Percent Auto 19.1 % (2-11); Neutrophils Absolute Auto 3.4 x10*3/uL (2.0-8.3); Neutrophils Percent Auto 46.4 % (45-73); Platelet Count 283 X10*3/uL (160-400); Red Blood Count 4.62 X10*6/uL (4.60-5.80); Red Cell Distribution Width 15.2 % (11.0-16.0); White Blood Count 7.2 X10*3/uL (4.8-10.8)
[2023-09-23 05:59] LABS: Alanine Aminotransferase 46 U/L (0-40); Albumin Level 3.5 g/dL (3.5-5.0); Alkaline Phosphatase 128 U/L (39-117); Anion Gap 16 (12-20); Aspartate Amino Transferase 42 U/L (5-37); Bilirubin Total 0.6 mg/dL (0.0-1.0); Blood Urea Nitrogen 7 mg/dL (9-16); Calcium 9.5 mg/dL (8.4-10.2); Carbon Dioxide 25 mmol/L (22-29); Chloride 105 mmol/L (96-108); Creatinine Clr Calc Pharmacy 141.2; Estimated Glomerular Filt Rate > 60; Glucose Random 124 mg/dL (60-115); Magnesium 2.2 mg/dL (1.6-2.6); Phosphorus 3.5 mg/dL (2.7-4.5); Potassium 4.1 mmol/L (3.3-5.1); Sodium 142 mmol/L (135-145)
--- NOTE | 2023-09-23 07:39 | P.PNCC_ITS ---
Subjective Subjective Date of Service: 09/23/23 Interval History: no significant overnight events Critical Care Time (minutes): 60 Physical Exam 2 Vital Signs: Vital Signs: Last Vital Signs Temp 100.6 F H 09/23/23 06:00 Pulse 66 09/23/23 06:18 Resp 20 09/23/23 06:00 BP 134/69 09/23/23 06:18 Pulse Ox 93 09/23/23 06:00 O2 Del Method Mechanical Ventil ation 09/23/23 06:00 O2 Flow Rate 40 09/21/23 06:00 FiO2 45 09/23/23 07:04 BMI result Body Mass Index 46.3 Const: Other: intubated, sedated General: no acute distress and well developed HEENT: Head: Yes normal to inspection, Yes normocephalic and Yes atraumatic Eyes: General: appearance normal, both eyes and all related structures Neck: Neck: Yes normal visual inspection, Yes full ROM, Yes no meningeal signs, Yes trachea midline and Yes supple Chest: Chest palpation & inspection: normal inspection of the chest Resp: Other: appreciable mild rhonchi throughout; no appreciable rales, wheezing Cardio: Rate: regular rate Rhythm: regular rhythm GI: Inspection: Yes normal to inspection, No Abdominal wall edema and No distended Palpation (GI): Soft to palpation, not firm, nontender, no guarding and not rigid Skin: General skin exam: no rashes or lesions noted Neuro: General: tone normal, moves all extremities and no meningeal signs Extrem: Other: trace pitting edema to bilateral shins General: Yes normal to inspection, Yes full ROM and Yes capillary refill normal Psych: Other: unable to assess Objective Data Labs 09/23/23 05:16 09/23/23 05:16 Labs: Laboratory Results - last 24 hr 09/23/23 09/23/23 05:13 05:16 WBC 7.2 RBC 4.62 Hgb 13.7 L Hct 41.9 L MCV 90.7 MCH 29.7 MCHC 32.7 RDW 15.2 Plt Count 283 MPV 11.4 Immature Gran % (Auto) 2.6 H Neut % (Auto) 46.4 Lymph % (Auto) 29.5 [place] % (Auto) 19.1 H Eos % (Auto) 1.4 Baso % (Auto) 1.0 Lymph # (Auto) 2.1 [place] # (Auto) 1.4 H Eos # (Auto) 0.1 Baso # (Auto) 0.1 Abs Immat Gran (auto) 0.19 H Absolute Neuts (auto) 3.4 Absolute Nucleated RBC 0.000 Nucleated RBC % (auto) 0.0 VBG pH 7.58 H VBG pCO2 29 VBG pO2 57 VBG HCO3 28 H VBG O2 Saturation 89.0 VBG Base Excess 6.9 Sodium 142 Potassium 4.1 Chloride 105 Carbon Dioxide 25 Anion Gap 16 BUN 7 L Creatinine 0.71 Estim Creat Clear Calc 141.2 Estimated GFR > 60 Random Glucose 124 H Calcium 9.5 Phosphorus 3.5 Magnesium 2.2 Total Bilirubin 0.6 AST 42 H ALT 46 H Alkaline Phosphatase 128 H Total Protein 7.0 Albumin 3.5 Progress Note: A&P Assessment and plan (1) Acute respiratory failure with hypoxia: Status: Acute (2) Pulmonary aspiration: Status: Acute (3) Alcohol withdrawal: Status: Acute (4) Delirium tremens: Status: Acute Plan Patient is a 67 Y M with prior traumatic brain injury, PTSD, and alcohol misuse, c/b prior delirium tremens, initially admitted 09/13 w/ alcohol withdrawal; on 09/19, developed acute hypoxic respiratory failure, likely d/t aspiration, intubated N: intubated, sedated w/ propofol, dexmedetomidine gtts; wean as tolerated CV: no acute issues R: acute hypoxic respiratory failure, intubated 09/19; wean as tolerated GI: no acute issues; tube feeds : no acute issues H: no acute issues; chemical DVT prophylaxis ID: c/f aspiration, though w/o overt stigmata of infection E: no acute issues; to monitor hypo-/hyper-glycemia S: alcohol misuse; addiction medicine when appropriate Quality Stroke Does the patient have a stroke diagnosis?: No VTE Prior VTE?: No VTE Risk Level:: Medical - moderate - high VTE Device Contraindication: Treatment Not Indicated VTE Drug Contraindication: N/A - Med Ordered
[2023-09-23] MEDS: Albuterol/Iprat 2.5/0.5MG 3 ML AMPUL.NEB INHALE ×2 (07:47→12:03)
[2023-09-23] MEDS: dexmedeTOMIDidine HCL/NS 400 MCG/100 ML INFUS..BTL 36.33 MCG IVCONT ×2 (07:49→10:33)
[2023-09-23] MEDS: 0.9 % Sodium Chloride Flush 3 ML SYRINGE IVFLUSH ×3 (07:50→20:38)
[2023-09-23] MEDS: Nystatin Powder 15 GM BOTTLE 1 APPL TOPICAL ×2 (08:05→20:20)
[2023-09-23] MEDS: Furosemide 20 MG/2 ML VIAL 10 MG IVPUSH ×2 (08:29→17:00)
[2023-09-23] MEDS: Famotidine/PF 20 MG/2 ML VIAL IVPUSH (08:29)
[2023-09-23] MEDS: Chlorhexidine Gluc Oral Rinse 15 ML MOUTHWASH BUCCAL ×2 (08:29→20:20)
[2023-09-23] MEDS: Valproic Acid (as Sodium Salt) 1,000 MG in Dextrose 5 % 50 ML 60 MG IV ×2 (08:29→20:28)
[2023-09-23] MEDS: vancomycin/NS 2,000 MG/500 ML PLAST..BAG 250 MG IV (10:48)
--- NOTE | 2023-09-23 11:44 | PHA.PROG ---
Admission Date/Time: September 14, 2023 13:30 Indication: Respiratory Weight in k.1 kg Adjusted body weight in Kg: [place] body weight in Kg: Obesity Dosing Indication % IBW: Serum Creatinine - Last 168 Hours 09/17/23 09/18/23 09/19/23 06:22 09:02 05:51 Creatinine 0.74 0.73 0.69 09/20/23 09/21/23 09/22/23 05:46 04:40 05:13 Creatinine 0.67 0.69 0.69 09/23/23 05:16 Creatinine 0.71 Estimated CrCl and GFR - Last 168 Hours 09/17/23 09/18/23 09/19/23 06:22 09:02 05:51 Estim Creat Clear Calc 132.1 133.9 142.2 Estimated GFR > 60 > 60 > 60 09/20/23 09/21/23 09/22/23 05:46 04:40 05:13 Estim Creat Clear Calc 145.8 141.6 142.5 Estimated GFR > 60 > 60 > 60 09/23/23 05:16 Estim Creat Clear Calc 141.2 Estimated GFR > 60 Vancomycin Loading Dose: 2000mg x 1 Current Vancomycin Dosing Regimen: 1500mg Q12H Vancomycin Monitoring using AUC goal of 400 - 600 range with trough as surrogate marker: 537 mg/L Date and Time for next Vancomycin Level to be drawn: 09/23 @2100 Pharmacist Comments on Vancomycin Plan: Patient's BMI = 46.3; obesity model being used. Predicted trough of 15.5mg/L. Renal function has been stable, will continue to monitor and adjust accordingly. Vancomycin dosing will take advantage of [employer] as a clinical decision support tool that uses Bayesian modeling to calculate individual patient's pharmacokinetic parameters and forecast the patient's drug concentration time course with the target goal AUC 24 range of 400 - 600 mg/L/hr.
--- NOTE | 2023-09-23 12:03 | P.PICC_ITS ---
PICC Line Insertion NPICC INSERTION Diagnosis: Pulmonary Aspiration/Resp Failure Indication: Multiple Medications Pertinent Labs: Reviewed Technique: Following informed consent including risks, benefits and alternatives and using sterile technique including cap and mask, sterile gown, glove and drape, the RIGHT arm was prepped and draped in the usual sterile fashion of full barrier technique with [facility]. Following completion of [place] Protocol the skin and soft tissues were anesthetized with 1% Lidocaine plain. Using ultrasound guidance, RIGHT BASILIC vein access was obtained. Over an 0.018 wire through peel-away sheath, a 5FR TRIPLE PASV LUMEN PICC line was positioned. Catheter length is 50CM internal length, 0CM external length, for a total trimmed length of 50CM. The procedure was performed in RM 252. Tip verification was performed by Vidhi Rachel with Sherlock 3CG. Tip located in SVC. Ultrasound was used to document vein patency and for needle entry. A formal ultrasound picture and cardiac rhythm strip was recorded. Vascular Illuminating Engineer has released the line for use and it is currently dressed with a StatLock, Tegaderm, and CHG disc. Verification has been performed for blood return and line patency. Arm Circumference: 36CM Equipment: [employer] POWERPICC SOLO CATHETER WITH SHERLOCK 3CG TIP Catheter Type: 5FR TRIPLE PASV LUMEN PICC line Lot #: [id number]
[2023-09-23] MEDS: dexmedeTOMIDidine HCL/NS 400 MCG/100 ML INFUS..BTL 49.54 MCG IVCONT ×6 (13:02→23:00)
[2023-09-23] MEDS: Enoxaparin Sodium 40 MG/0.4 ML SYRINGE SUBCUT (13:03)
[2023-09-23] MEDS: Piperacillin Sodium/Tazobactam 4.5 GM in 0.9 % Sodium Chloride 100 ML IV ×2 (13:03→19:13)
[2023-09-23] MEDS: Haloperidol Lactate 5 MG/ML VIAL 2 MG IVPUSH ×2 (14:46→19:32)
--- NOTE | 2023-09-23 14:54 | MHC.CM.PN ---
Pt continues on ventilatory support in ICU secondary to DT's from ETOH misuse. Plans for today include CT of head/chest, PICC insertion and continued sedation wean attempts. Pt's older adult son, Lul has been located and will serve as his father's medical decision maker. CM to follow for finalization of d/c needs.
[2023-09-23] MEDS: HYDROmorphone HCl 2 MG/ML VIAL IVPUSH (15:02)
[2023-09-23] MEDS: 0.9 % Sodium Chloride Flush 10 ML SYRINGE 5 ML IVFLUSH ×2 (15:03→20:20)
[2023-09-23] MEDS: Midazolam HCl/PF 2 MG/2 ML VIAL IVPUSH ×2 (15:17→19:42)
[2023-09-23] MEDS: OLANZapine 10 MG VIAL 2.5 MG IM ×2 (16:15→20:35)
--- NOTE | 2023-09-23 17:25 | PC.NURSE ---
Assumed care at 0700 - pt intubated and sedated. Head & chest CT ordered and completed - see report. PICC line placed by IR at bedside w/o issue. Propofol gtt paused at 1225 for sedation vacation; precedex gtt continued per MD. Patient placed on PSV at 1322 by RT. Patient awake, positive tracking, following commands, mildly restless. Patient extubated at 1413 per MD order. Patient became progressively more restless, difficult to redirect, positive tracking but unable to follow commands or voice needs/concerns, no speech but moaning, throwing legs over bed rails and attempting to get OOB. Positive cough, unable to assess gag response. MD notified and at bedside multiple times - patient medicated multiple times per EMAR w/ no effect - MD aware. Restraints continued per MD, sitter at bedside, aspiration precautions and high fall risk precautions in place.
[2023-09-23] MEDS: vancomycin HCL 1,500 MG in 0.9 % Sodium Chloride 500 ML 333.33 MG IV (23:01)
[2023-09-24] VITALS (36 sets, daily range): BP systolic 112–168; BP diastolic 61–92; PULSE 74–105; RESP 15–29; TEMP 36.8–38.3; O2SAT 91–99; BMI 44.4
[2023-09-24] MEDS: Piperacillin Sodium/Tazobactam 4.5 GM in 0.9 % Sodium Chloride 100 ML IV ×4 (00:32→18:30)
[2023-09-24] MEDS: dexmedeTOMIDidine HCL/NS 400 MCG/100 ML INFUS..BTL 49.54 MCG IVCONT ×6 (00:36→10:43)
[2023-09-24 05:25] LABS: VBG Base Excess 5.4 mmol/L; VBG HCO3 26 mmol/L (22-26); VBG pCO2 28 mmHg; VBG pH 7.57 (7.32-7.43); VBG pO2 60 mmHg
[2023-09-24 05:45] LABS: Venous Blood Gas Refer to POC result
[2023-09-24 05:52] LABS: Basophils Absolute Auto 0.1 X10*3/uL (0.0-0.2); Basophils Percent Auto 1.3 % (0-2); Eosinophils Absolute Auto 0.1 X10*3/uL (0.0-0.4); Eosinophils Percent Auto 0.9 % (0-4); Hematocrit 43.7 % (42.0-52.0); Hemoglobin 14.6 g/dl (14.0-18.0); Imm Gran Abs Auto 0.39 X10*3/uL (0.00-0.03); Lymphocytes Absolute Auto 1.9 X10*3/uL (1.2-4.9); Lymphocytes Percent Auto 19.4 % (20-40); MANUAL DIFF FLAG SCAN; Mean Corpuscular HGB Conc 33.4 g/dl (31.0-36.0); Mean Corpuscular Hemoglobin 29.7 pg (27.0-33.0); Mean Platelet Volume 11.3 fL (9.4-12.4); Monocytes Absolute Auto 1.6 X10*3/uL (0.1-1.2); Monocytes Percent Auto 16.5 % (2-11); Neutrophils Absolute Auto 5.6 x10*3/uL (2.0-8.3); Neutrophils Percent Auto 57.9 % (45-73); Platelet Count 361 X10*3/uL (160-400); Red Blood Count 4.91 X10*6/uL (4.60-5.80); Red Cell Distribution Width 14.6 % (11.0-16.0); SCAN SMEAR FLAG 1; White Blood Count 9.8 X10*3/uL (4.8-10.8)
[2023-09-24 06:17] LABS: Alanine Aminotransferase 46 U/L (0-40); Albumin Level 3.9 g/dL (3.5-5.0); Alkaline Phosphatase 145 U/L (39-117); Anion Gap 18 (12-20); Aspartate Amino Transferase 53 U/L (5-37); Blood Urea Nitrogen 8 mg/dL (9-16); Calcium 10.1 mg/dL (8.4-10.2); Carbon Dioxide 23 mmol/L (22-29); Chloride 106 mmol/L (96-108); Creatinine Clr Calc Pharmacy 122.3; Estimated Glomerular Filt Rate > 60; Glucose Random 115 mg/dL (60-115); Magnesium 2.2 mg/dL (1.6-2.6); Phosphorus 2.1 mg/dL (2.7-4.5); Potassium 3.8 mmol/L (3.3-5.1); Sodium 143 mmol/L (135-145)
[2023-09-24 06:19] LABS: SLIDE REVIEW VERIFIED
--- NOTE | 2023-09-24 07:39 | PM.CCPN ---
Subjective Subjective Date of Service: 09/24/23 Interval History: continued agitation, likely d/t hyperactive delirium; otherwise, no significant overnight events Critical Care Time (minutes): 60 Physical Exam Vital Signs: Vital Signs: Last Vital Signs Temp 100.9 F H 09/24/23 07:00 Pulse 77 09/24/23 07:00 Resp 15 09/24/23 07:00 BP 139/72 09/24/23 07:00 Pulse Ox 96 09/24/23 07:00 O2 Del Method Room Air 09/24/23 07:00 O2 Flow Rate 2 09/24/23 05:59 FiO2 45 09/23/23 14:00 BMI result Body Mass Index 44.4 Const: Other: fatigued, though easily arousable; intermittent agitation General: Physically active HEENT: Head: Yes normal to inspection, Yes normocephalic and Yes atraumatic Eyes: General: appearance normal, both eyes and all related structures Neck: Neck: Yes normal visual inspection, Yes full ROM, Yes no meningeal signs, Yes trachea midline and Yes supple Chest: Chest palpation & inspection: normal inspection of the chest Resp: Other: some appreciable rhonchi; no appreciable rales, wheezing Cardio: Rate: regular rate Rhythm: regular rhythm GI: Inspection: Yes normal to inspection, No Abdominal wall edema and No distended Palpation (GI): Soft to palpation, not firm, nontender, no guarding and not rigid : Male General Exam: Yes normal external exam Skin: General skin exam: no rashes or lesions noted Neuro: General: tone normal, moves all extremities, no meningeal signs and no focal motor deficits Extrem: Other: trace pitting edema to bilateral knees General: Yes normal to inspection, Yes full ROM and Yes capillary refill normal Psych: Other: intermittent agitation Objective Data Labs 09/24/23 05:13 09/24/23 05:13 Labs: Laboratory Results - last 24 hr 09/24/23 09/24/23 05:13 05:15 WBC 9.8 RBC 4.91 Hgb 14.6 Hct 43.7 MCV 89.0 MCH 29.7 MCHC 33.4 RDW 14.6 Plt Count 361 D MPV 11.3 Immature Gran % (Auto) 4.0 H Neut % (Auto) 57.9 Lymph % (Auto) 19.4 L [place] % (Auto) 16.5 H Eos % (Auto) 0.9 Baso % (Auto) 1.3 Lymph # (Auto) 1.9 [place] # (Auto) 1.6 H Eos # (Auto) 0.1 Baso # (Auto) 0.1 Abs Immat Gran (auto) 0.39 H Absolute Neuts (auto) 5.6 Absolute Nucleated RBC 0.000 Nucleated RBC % (auto) 0.0 Smear Tech's Comments VERIFIED VBG pH 7.57 H VBG pCO2 28 VBG pO2 60 VBG HCO3 26 VBG O2 Saturation 91.0 VBG Base Excess 5.4 Sodium 143 Potassium 3.8 Chloride 106 Carbon Dioxide 23 Anion Gap 18 BUN 8 L Creatinine 0.80 Estim Creat Clear Calc 122.3 Estimated GFR > 60 Random Glucose 115 Calcium 10.1 D Phosphorus 2.1 L Magnesium 2.2 Total Bilirubin 1.0 AST 53 H ALT 46 H Alkaline Phosphatase 145 H Total Protein 8.0 Albumin 3.9 Progress Note: A&P Assessment and plan (1) Encephalopathy: Status: Acute (2) Delirium tremens: Status: Acute (3) Acute respiratory failure with hypoxia: Status: Acute (4) Pulmonary aspiration: Status: Acute Plan Patient is a 67 Y M with prior traumatic brain injury, PTSD, and alcohol misuse, c/b prior delirium tremens, initially admitted 09/13 w/ alcohol withdrawal; on 09/19, developed acute hypoxic respiratory failure, likely d/t aspiration, intubated, extubated 09/22; ICU course c/b encephalopathy, likely hyperactive delirium N: encephalopathy, likely hyperactive delirium; multi-modal management including dexmedetomidine gtt, and judicious anti-psychotics, and benzodiazepines CV: no acute issues R: acute hypoxic respiratory failure, intubated 09/19, extubated 09/22 GI: speech/swallow evaluation; advance diet as tolerated : no acute issues H: no acute issues; chemical DVT prophylaxis ID: c/f aspiration, empiric vancomycin, zosyn E: no acute issues; to monitor hypo-/hyper-glycemia S: alcohol misuse; addiction medicine when appropriate Quality Stroke Does the patient have a stroke diagnosis?: No VTE Prior VTE?: No VTE Risk Level:: Medical - moderate - high VTE Device Contraindication: Treatment Not Indicated VTE Drug Contraindication: N/A - Med Ordered
[2023-09-24] MEDS: Valproic Acid (as Sodium Salt) 1,000 MG in Dextrose 5 % 50 ML 60 MG IV ×2 (08:07→20:42)
[2023-09-24] MEDS: Potassium Phosphate/NS 15 MMOL/250 ML PLAST..BAG 62.5 MMOL IV (08:16)
[2023-09-24] MEDS: Furosemide 20 MG/2 ML VIAL 10 MG IVPUSH ×2 (08:23→18:32)
[2023-09-24] MEDS: 0.9 % Sodium Chloride Flush 3 ML SYRINGE IVFLUSH ×2 (08:24→14:43)
[2023-09-24] MEDS: Famotidine/PF 20 MG/2 ML VIAL IVPUSH (08:29)
--- NOTE | 2023-09-24 09:39 | MHC.CLN ---
F/U PT EXTUBATED YESTERDAY CURRENTLY NPO FOLLOWING WITH TEAM
[2023-09-24] MEDS: Nystatin Powder 15 GM BOTTLE 1 APPL TOPICAL ×2 (10:44→20:47)
[2023-09-24] MEDS: vancomycin HCL 1,500 MG in 0.9 % Sodium Chloride 500 ML 333.33 MG IV (11:56)
--- NOTE | 2023-09-24 12:08 | MHC.CM.PN ---
EMR reviewed and per MD rounds, pt is not medically cleared for discharge due to ongoing management of pt with delirium/agitation, on a precedex gtt, pt is s/p extubation on 09/22, with swallow eval pending.
[2023-09-24] MEDS: dexmedeTOMIDidine HCL/NS 400 MCG/100 ML INFUS..BTL 42.93 MCG IVCONT (12:40)
[2023-09-24] MEDS: Enoxaparin Sodium 40 MG/0.4 ML SYRINGE SUBCUT (12:54)
[2023-09-24] MEDS: dexmedeTOMIDidine HCL/NS 400 MCG/100 ML INFUS..BTL 36.33 MCG IVCONT (14:43)
[2023-09-24] MEDS: 0.9 % Sodium Chloride Flush 10 ML SYRINGE 5 ML IVFLUSH ×2 (14:56→20:44)
[2023-09-24] MEDS: Lidocaine 4 % Patch ADH..PATCH 2 PATCH TRANSDERMA (16:28)
[2023-09-24] MEDS: HYDROmorphone HCl 2 MG/ML VIAL IVPUSH (16:29)
[2023-09-24] MEDS: OLANZapine 10 MG VIAL 5 MG IM ×2 (16:53→21:38)
--- NOTE | 2023-09-24 17:10 | MHC.SL.SWA ---
Risk of Aspiration Due to: Hx of Recent Extubation Weak Cough Weak Voice Dysphasia Diet Status: NO CHANGE Liquid Consistency and Strategies for Safe Swallow: Liquid Intake Recommendation: NPO Solid Food Consistency: Dietary Recommendations: NPO Oral Medication Intake: NPO Please contact the pharmacy regarding appropriate crushable or liquid drug formulations that are available whenever modified delivery is recommended. Recommendation for Speech: Further Testing Needed Inpatient Speech Therapy Comment: Recommend continue strict NPO until reevaluation by HOME CARE LIAISON tomorrow morning. Patients presents w/ weak and horse vocal quality which may indicate laryngeal damage s/p extubation. Pt presented with immediate overt s/s aspiration with thin liquids via teaspoon. Unclear if pts swallow trigger is initiating; no laryngeal elevation noted. Recommend strict/frequent oral care. May swab mouth w/ water and toothette if ensuring frequent oral care. Frequency/Duration: daily M-F Merchandise Flow Associate Clinican/Clinical Fellow: No Supervisory Statement: I have reviewed and agree with the student/clinical fellow's documentation: N/A Speech Language Pathologist: Charisse Dill M.A., CCC-HOME CARE LIAISON
[2023-09-24] MEDS: dexmedeTOMIDidine HCL/NS 400 MCG/100 ML INFUS..BTL 23.12 MCG IVCONT ×2 (18:33→22:51)
[2023-09-24 21:26] LABS: Vancomycin Random 15.8 mcg/mL (15-20)
[2023-09-24] MEDS: vancomycin HCL 1,250 MG in 0.9 % Sodium Chloride 250 ML 166.67 MG IV (22:21)
[2023-09-25] VITALS (39 sets, daily range): BP systolic 103–176; BP diastolic 44–105; PULSE 90–123; RESP 14–33; TEMP 36.5–37.1; O2SAT 90–96; BMI 44.2
[2023-09-25] MEDS: HYDROmorphone HCl 2 MG/ML VIAL IVPUSH ×4 (00:30→21:05)
[2023-09-25] MEDS: Piperacillin Sodium/Tazobactam 4.5 GM in 0.9 % Sodium Chloride 100 ML IV ×4 (00:31→18:23)
[2023-09-25] MEDS: dexmedeTOMIDidine HCL/NS 400 MCG/100 ML INFUS..BTL 16.51 MCG IVCONT (03:10)
[2023-09-25 05:25] LABS: Venous Blood Gas Refer to POC result
[2023-09-25 05:25] LABS: MANUAL DIFF FLAG NO
[2023-09-25 05:27] LABS: Basophils Absolute Auto 0.1 X10*3/uL (0.0-0.2); Basophils Percent Auto 1.5 % (0-2); Eosinophils Absolute Auto 0.1 X10*3/uL (0.0-0.4); Eosinophils Percent Auto 1.5 % (0-4); Hematocrit 43.3 % (42.0-52.0); Hemoglobin 14.4 g/dl (14.0-18.0); Imm Gran Abs Auto 0.23 X10*3/uL (0.00-0.03); Imm Gran Pct Auto 2.6 % (0.0-0.4); Lymphocytes Absolute Auto 2.4 X10*3/uL (1.2-4.9); Lymphocytes Percent Auto 27.5 % (20-40); Mean Corpuscular HGB Conc 33.3 g/dl (31.0-36.0); Mean Corpuscular Hemoglobin 29.9 pg (27.0-33.0); Mean Platelet Volume 10.7 fL (9.4-12.4); Monocytes Absolute Auto 1.4 X10*3/uL (0.1-1.2); Monocytes Percent Auto 15.6 % (2-11); Neutrophils Absolute Auto 4.5 x10*3/uL (2.0-8.3); Neutrophils Percent Auto 51.3 % (45-73); Platelet Count 416 X10*3/uL (160-400); Red Blood Count 4.81 X10*6/uL (4.60-5.80); Red Cell Distribution Width 14.6 % (11.0-16.0); White Blood Count 8.8 X10*3/uL (4.8-10.8)
[2023-09-25 05:30] LABS: VBG Base Excess 2.9 mmol/L; VBG HCO3 23 mmol/L (22-26); VBG pCO2 25 mmHg; VBG pH 7.57 (7.32-7.43); VBG pO2 108 mmHg
[2023-09-25 05:41] LABS: Alanine Aminotransferase 35 U/L (0-40); Albumin Level 3.7 g/dL (3.5-5.0); Alkaline Phosphatase 133 U/L (39-117); Anion Gap 17 (12-20); Aspartate Amino Transferase 35 U/L (5-37); Bilirubin Total 0.8 mg/dL (0.0-1.0); Blood Urea Nitrogen 13 mg/dL (9-16); Calcium 9.6 mg/dL (8.4-10.2); Carbon Dioxide 23 mmol/L (22-29); Chloride 109 mmol/L (96-108); Creatinine Clr Calc Pharmacy 115.1; Estimated Glomerular Filt Rate > 60; Glucose Random 119 mg/dL (60-115); Magnesium 2.2 mg/dL (1.6-2.6); Phosphorus 2.4 mg/dL (2.7-4.5); Potassium 3.3 mmol/L (3.3-5.1); Sodium 146 mmol/L (135-145); Total Protein 7.4 g/dL (6.5-8.0)
--- NOTE | 2023-09-25 06:00 | PM.EVENT ---
Documented by User: Jabier Vincent NP 09/30/23 19:20 Event Note Date of Service: 09/25/23 Event Note: Patients low map at 0300, not related to severe sepsis/ worsening infection. no signs of severe infecion at this time. Time Spent With Patient Time: Total time managing care of this patient today ____ minutes. Documented by User: Daily Diop MD 10/06/23 12:10 Event Note Date of Service: 10/06/23
[2023-09-25] MEDS: Potassium Phosphate/NS 15 MMOL/250 ML PLAST..BAG 62.5 MMOL IV (08:18)
[2023-09-25] MEDS: 0.9 % Sodium Chloride Flush 3 ML SYRINGE IVFLUSH ×2 (08:26→15:16)
[2023-09-25] MEDS: Valproic Acid (as Sodium Salt) 1,000 MG in Dextrose 5 % 50 ML 60 MG IV ×2 (08:28→21:06)
[2023-09-25] MEDS: Nystatin Powder 15 GM BOTTLE 1 APPL TOPICAL ×2 (08:34→23:41)
[2023-09-25] MEDS: Famotidine/PF 20 MG/2 ML VIAL IVPUSH (08:35)
[2023-09-25] MEDS: Furosemide 20 MG/2 ML VIAL 10 MG IVPUSH ×2 (08:36→17:05)
[2023-09-25] MEDS: 0.9 % Sodium Chloride Flush 10 ML SYRINGE 5 ML IVFLUSH ×3 (08:55→21:10)
--- NOTE | 2023-09-25 08:57 | P.PNCC_ITS ---
Subjective Subjective Date of Service: 09/25/23 Interval History: no significant overnight events; interval improvement of agitation and encephalopathy; alert, oriented to person, place, time and situation Critical Care Time (minutes): 60 Physical Exam 2 Vital Signs: Vital Signs: Last Vital Signs Temp 98.0 F 09/25/23 03:00 Pulse 102 H 09/25/23 08:00 Resp 20 09/25/23 08:00 BP 157/91 H 09/25/23 08:36 Pulse Ox 92 09/25/23 08:00 O2 Del Method Room Air 09/25/23 08:00 O2 Flow Rate 2 09/25/23 01:00 FiO2 45 09/23/23 14:00 BMI result Body Mass Index 44.2 Const: General: cooperative, healthy appearing, comfortable, no acute distress, well developed, alert, awake and Physically active O rientation/consciousness: patient oriented x3 HEENT: Head: Yes normal to inspection, Yes normocephalic and Yes atraumatic Eyes: General: appearance normal, both eyes and all related structures Neck: Neck: Yes normal visual inspection, Yes full ROM, Yes no meningeal signs, Yes trachea midline and Yes supple Chest: Chest palpation & inspection: normal inspection of the chest Resp: Other: no appreciable rales, rhonchi, wheezing Effort & Inspection: normal respiratory effort Cardio: Rate: regular rate Rhythm: regular rhythm GI: Inspection: Yes normal to inspection, No Abdominal wall edema and No distended Palpation (GI): Soft to palpation, not firm, nontender, no guarding and not rigid Skin: General skin exam: no rashes or lesions noted Neuro: General: patient oriented x3, tone normal, moves all extremities, no meningeal signs and no focal motor deficits Extrem: General: Yes normal to inspection, Yes full ROM, Yes capillary refill normal and Yes no clubbing, cyanosis or edema Psych: Appearance: grossly normal Objective Data Labs 09/25/23 05:19 09/25/23 05:19 Labs: Laboratory Results - last 24 hr 09/24/23 09/25/23 09/25/23 21:06 05:19 05:20 WBC 8.8 RBC 4.81 Hgb 14.4 Hct 43.3 MCV 90.0 MCH 29.9 MCHC 33.3 RDW 14.6 Plt Count 416 H MPV 10.7 Immature Gran % (Auto) 2.6 H Neut % (Auto) 51.3 Lymph % (Auto) 27.5 [place] % (Auto) 15.6 H Eos % (Auto) 1.5 Baso % (Auto) 1.5 Lymph # (Auto) 2.4 [place] # (Auto) 1.4 H Eos # (Auto) 0.1 Baso # (Auto) 0.1 Abs Immat Gran (auto) 0.23 H Absolute Neuts (auto) 4.5 Absolute Nucleated RBC 0.000 Nucleated RBC % (auto) 0.0 VBG pH 7.57 H VBG pCO2 25 VBG pO2 108 VBG HCO3 23 VBG O2 Saturation 99.0 VBG Base Excess 2.9 Sodium 146 H Potassium 3.3 Chloride 109 H Carbon Dioxide 23 Anion Gap 17 BUN 13 Creatinine 0.85 Estim Creat Clear Calc 115.1 Estimated GFR > 60 Random Glucose 119 H Calcium 9.6 Phosphorus 2.4 L Magnesium 2.2 Total Bilirubin 0.8 AST 35 ALT 35 Alkaline Phosphatase 133 H Total Protein 7.4 Albumin 3.7 Random Vancomycin 15.8 Progress Note: A&P Assessment and plan (1) Acute respiratory failure with hypoxia: Status: Acute (2) Pulmonary aspiration: Status: Acute (3) Encephalopathy: Status: Acute (4) Delirium tremens: Status: Acute Plan Patient is a 67 Y M with prior traumatic brain injury, PTSD, and alcohol misuse, c/b prior delirium tremens, initially admitted 09/13 w/ alcohol withdrawal; on 09/19, developed acute hypoxic respiratory failure, likely d/t aspiration, intubated, extubated 09/22; ICU course c/b encephalopathy, likely hyperactive delirium N: encephalopathy, markedly improved CV: no acute issues R: acute hypoxic respiratory failure, intubated 09/19, extubated 09/22, resolved GI: speech/swallow evaluation; advance diet as tolerated : no acute issues H: no acute issues; chemical DVT prophylaxis ID: c/f aspiration, empiric vancomycin, zosyn E: no acute issues; to monitor hypo-/hyper-glycemia S: alcohol misuse; addiction medicine consult Quality Stroke Does the patient have a stroke diagnosis?: No VTE Prior VTE?: No VTE Risk Level:: Medical - moderate - high VTE Device Contraindication: Treatment Not Indicated VTE Drug Contraindication: N/A - Med Ordered
--- NOTE | 2023-09-25 08:58 | MHC.CLN ---
F/U HOSIERY MENDER RECOMMENDED NPO YESTERDAY HOSIERY MENDER TO RE-EVAL TODAY DAY 2 NPO S/P EXTUBATION DIET RX: NPO PENDING SWALLOW EVAL NOTED TOSHA 12 WITH REDNESS TO BUTTOCKS WHEN DIET TO ADVANCE, RECOMMEND HIGH PROTEIN SUPPLEMENT IF PPN NEEDED; PLEASE CONSULT RD FOLLOWING WITH TEAM
--- NOTE | 2023-09-25 09:20 | P.ACPN_ITS ---
Advanced Care Planning Note Advanced Care Planning Note Discussed with: patient Time spent (in minutes): 30 Narrative: of note, Mr. Montiel is alert, oriented to person, place, time, and situation, and answers questions appropriately; I informed Mr. Montiel that we involved our case management associate to find loved ones when Mr. Montiel was unable to communicate with us, and that I have been speaking with Mr. Bhat's son, Lul, for the past days; I expressed since Mr. Montiel is able to communicate with us now, I do not have to inform/update Lul if Mr. Montiel would not like me to; Mr. Montiel was indifferent to this, but overall is okay with Lul recieving updates if necessary; we also discussed code status; Mr. Montiel stated he would not want another intubation nor CPR; I prompted Mr. Montiel, and he stated that intubation caused him great discomfort, and that he is at peace with the dying process; I asked Mr. Montiel if he felt any depressive symptoms or suicidal ideation, and he adamantly reported no; his code status was changed to DNR/DNI Problems Discussed (1) Acute respiratory failure with hypoxia: (2) Pulmonary aspiration: (3) Encephalopathy: (4) Delirium tremens:
[2023-09-25] MEDS: Lidocaine 4 % Patch ADH..PATCH 2 PATCH TRANSDERMA (10:08)
[2023-09-25] MEDS: vancomycin HCL 1,250 MG in 0.9 % Sodium Chloride 250 ML 166.66 MG IV (10:46)
--- NOTE | 2023-09-25 11:05 | MHC.SL.SWA ---
Speech Pathologist Impression: Risk of Aspiration Due to: Hx of Recent Extubation Weak Cough Weak Voice Dysphasia Diet Status: Patient presents with mild to moderate oral phase dysphagia, timely swallow, however ? mild pharyngeal phase issues secondary to periodic need to clear with cough. Recommend START diet of Ground/Mechanical (NDD2) with NT liquids, pills crushed in puree. Patient requires 1-1 feed at this time with close supervision. Encourage patient to periodically cough to clear when drinking NT liquid, which should be given by tsp or controlled cup sip. Avoid MIXED textures, hard difficult to chew solids. Check for full clearance of solids before administering more food. Liquid Consistency and Strategies for Safe Swallow: Liquid Intake Recommendation: [place] Thick Liquid Intake Strategies: Small Sips Solid Food Consistency: Dietary Recommendations: Grnd/Mech Altered (NDD2) Additional Modifications to Solid Foods: Oral Medication Intake: Crushed with Puree Please contact the pharmacy regarding appropriate crushable or liquid drug formulations that are available whenever modified delivery is recommended. Compensatory Strategies and Precautions to be Taken for Safe Swallow: Sitting Upright (90 deg) No Straw Liquids from Cup Small Bites and Sips Alternate Liquids/Solids Rate of Ingestion Change Oral Check Supervision While Eating and Drinking for Safe Swallow: Total Assistance (1:1) Foods to Avoid: Avoid MIXED textures, hard difficult to chew solids. Swallowing Recommended Treatments: Compens. Strategy Educat. Recommendation for Speech: Further Testing Needed Inpatient Speech Therapy Comment: Patient seen this morning for repeat clinical swallow assessment. Patient was kept NPO following yesterday's inititial assessment due to absent laryngeal elevation when palpated on swallow, wet voice on thin liquid. RN repeated Nurse's swallow this A.M. with patient failing due to wet voice. Patient was awake and alert. VARNISH MELTER HELPER completed oral mech screen with all WFL, however patient is edentulous, reports having no dentures. Patient was able to phonate/produce voice today, though voice is very soft/low volume. Patient also producing a cough and throat clear. VARNISH MELTER HELPER gave patient water by tsp in trace amount followed gradual increase in amount to full tsp. Patient evidenced an inefficient oral pattern, propelling bolus on tongue pump, followed by rapid swallow with tongue thrust, laryngeal elevation timely and WFL as palpated. On cup sip, patient evidenced mild difficulty with oral seal on cup, with some spilling, again rapid tongue pump and tongue thrust prior to swallow, followed by some audible upper airway noise wetness and coughing to clear. Patient required hand over hand to assist with raising cup to mouth throughout trials. Patient was then given nectar thick liquid by tsp then supported cup sip with similar oral transit pattern and swallow. Patient appeared to want to chug liquids, was encouraged to take small sips. After several cup sips at this consistency, some upper airway wetness was noted with patient encouraged to cough to clear which was effective. O2 sats remained steady in low 90s throughout. Patient was then given tsps of puree, again demonstrating a rapid tongue pump to propell bolus, timely swallow laryngeal elevation wfl, good oral clearance of bolus. Patient given softened cracker in puree, was encouraged to chew/mash with gums, patient instead appeared to use tongue to mash bolus on roof of mouth then swallow. On hard cracker in puree, patient appeared to first swallow a portion of the puree from the bolus , then produced a slow rotary chew with gums on cracker followed by swallow. NO other advanced textures were attempted. Patient repeatedly asked for water after study, was given NT water which he tolerated well. Recommend START diet of Ground/Mechanical (NDD2) with NT liquids, pills crushed in puree. Patient requires 1-1 feed at this time with close supervision. Encourage patient to periodically cough to clear when drinking NT liquid, which should be given by tsp or controlled cup sip. Avoid MIXED textures, hard difficult to chew solids. Check for full clearance of solids before administering more food. , RN advised of recommendations in person, RD by secure text. VARNISH MELTER HELPER will continue to follow. Frequency/Duration: daily M-F Date Range for Service Req: Timeline to reassess: Telegraph Printer Mechanic Clinican/Clinical Fellow: No Supervisory Statement: I have reviewed and agree with the student/clinical fellow's documentation: N/A Speech Language Pathologist: Christal Canseco M.A., CCC-VARNISH MELTER HELPER
[2023-09-25] MEDS: cloNIDine HCL 0.2 MG TABLET PO ×2 (11:09→21:06)
[2023-09-25] MEDS: hydrOXYzine HCL 50 MG TABLET PO (12:42)
[2023-09-25] MEDS: Enoxaparin Sodium 40 MG/0.4 ML SYRINGE SUBCUT (12:47)
--- NOTE | 2023-09-25 14:39 | MHC.CM.PN ---
Addendum entered by Nguyen Mixon 09/25/23 15:17: Spoke at length to Antoni Cabrera, pt's [place] rehabilitation case coordinator. Antoni verbalized concern w/pt returning to home and continuing drinking fearing eviction or worse, . He cites a dozen admissions for ETOH w/d usually at [facility]. Antoni states pt has been to inpt programs in the past but has either left early, or immediately returned to drinking as soon as he went home. Pt uses a motorized scooter to ride to the liquor store. Pt reportedly has a cell phone but forgets to charge it and can't call for help...most of his hospital admissions were in part initiated by well person checks. Pt typically refuses help and services per Antoni and doesn't see providers as he is too intoxicated to get to the appointments. Antoni is hoping that pt could be placed in a detox program or have a section 35 placement. Pt has an active Addiction Consult order - will message team to let them know pt is able to converse. Will update MD on above. Original Note: Pt has been extubated, A&O x4, and is conversant. Pt is now a DNR/DNI per detailed discussions w/ICU provider. Pt resides on campus at the [facility] and is followed by a [place] rehabilitation case coordinator. Pt would like to return when medically stable and is not interested in services but somewhat agreeable to addressing this need in the next few days as he makes continued progress. CM to contact pt's [place] CM w/updates: pt will need BLS transport back to his apartment - doubtful pt will consent to STR placement but CM will follow for any d/c planning needs pt may have.
[2023-09-25] MEDS: LORazepam 0.5 MG TABLET PO (15:36)
--- NOTE | 2023-09-25 20:41 | HE.PHANOTE ---
Re Vanco Trough resulted at 16.0, renal function unchanged. Projected AUC is 512 mg/L and true trough of 15.4 mg/L. Will continue 1250mg q12h and order next level for 09/25 @2100.
[2023-09-25] MEDS: QUEtiapine Fumarate 25 MG TABLET PO (21:06)
[2023-09-25] MEDS: vancomycin HCL 1,250 MG in 0.9 % Sodium Chloride 250 ML 166.6 MG IV (23:42)
[2023-09-26] VITALS (18 sets, daily range): BP systolic 107–149; BP diastolic 56–88; PULSE 97–113; RESP 13–33; TEMP 36.1–36.5; O2SAT 90–94; BMI 45.0
[2023-09-26] MEDS: hydrOXYzine HCL 50 MG TABLET PO (00:02)
[2023-09-26] MEDS: 0.9 % Sodium Chloride Flush 3 ML SYRINGE IVFLUSH ×2 (01:15→17:12)
[2023-09-26] MEDS: Piperacillin Sodium/Tazobactam 4.5 GM in 0.9 % Sodium Chloride 100 ML IV ×4 (01:15→18:23)
[2023-09-26] MEDS: HYDROmorphone HCl 2 MG/ML VIAL IVPUSH ×5 (02:43→22:18)
[2023-09-26 04:44] LABS: MANUAL DIFF FLAG NO
[2023-09-26 04:45] LABS: Basophils Absolute Auto 0.2 X10*3/uL (0.0-0.2); Basophils Percent Auto 1.6 % (0-2); Eosinophils Absolute Auto 0.2 X10*3/uL (0.0-0.4); Eosinophils Percent Auto 1.6 % (0-4); Hematocrit 41.9 % (42.0-52.0); Imm Gran Abs Auto 0.21 X10*3/uL (0.00-0.03); Imm Gran Pct Auto 2.3 % (0.0-0.4); Lymphocytes Absolute Auto 2.9 X10*3/uL (1.2-4.9); Lymphocytes Percent Auto 30.9 % (20-40); Mean Corpuscular HGB Conc 33.4 g/dl (31.0-36.0); Mean Corpuscular Hemoglobin 30.1 pg (27.0-33.0); Mean Corpuscular Volume 90.1 fL (80.0-98.0); Mean Platelet Volume 10.7 fL (9.4-12.4); Monocytes Absolute Auto 1.4 X10*3/uL (0.1-1.2); Monocytes Percent Auto 15.1 % (2-11); Neutrophils Absolute Auto 4.5 x10*3/uL (2.0-8.3); Neutrophils Percent Auto 48.5 % (45-73); Platelet Count 480 X10*3/uL (160-400); Red Blood Count 4.65 X10*6/uL (4.60-5.80); White Blood Count 9.2 X10*3/uL (4.8-10.8)
[2023-09-26 05:03] LABS: Alanine Aminotransferase 30 U/L (0-40); Albumin Level 3.7 g/dL (3.5-5.0); Alkaline Phosphatase 115 U/L (39-117); Anion Gap 17 (12-20); Aspartate Amino Transferase 32 U/L (5-37); Bilirubin Total 0.8 mg/dL (0.0-1.0); Blood Urea Nitrogen 15 mg/dL (9-16); Calcium 9.3 mg/dL (8.4-10.2); Carbon Dioxide 23 mmol/L (22-29); Chloride 108 mmol/L (96-108); Creatinine Clr Calc Pharmacy 120.6; Estimated Glomerular Filt Rate > 60; Glucose Random 128 mg/dL (60-115); Magnesium 2.2 mg/dL (1.6-2.6); Phosphorus 3.5 mg/dL (2.7-4.5); Potassium 3.1 mmol/L (3.3-5.1); Sodium 145 mmol/L (135-145); Total Protein 7.3 g/dL (6.5-8.0)
[2023-09-26] MEDS: Potassium Chloride Packet 20 MEQ PACKET 40 MEQ PO (05:49)
--- NOTE | 2023-09-26 07:52 | P.PNCC_ITS ---
Subjective Subjective Date of Service: 09/26/23 Interval History: no significant overnight events Critical Care Time (minutes): 0 Physical Exam 2 Vital Signs: Vital Signs: Last Vital Signs Temp 97.3 F 09/26/23 03:00 Pulse 110 H 09/26/23 07:00 Resp 25 H 09/26/23 07:00 BP 129/85 09/26/23 07:00 Pulse Ox 92 09/26/23 07:00 O2 Del Method Room Air 09/26/23 07:00 O2 Flow Rate 2 09/25/23 01:00 FiO2 45 09/23/23 14:00 BMI result Body Mass Index 45.0 Const: General: cooperative, healthy appearing, comfortable, no acute distress, well developed, alert, awake and Physically active O rientation/consciousness: patient oriented x3 HEENT: Head: Yes normal to inspection, Yes normocephalic and Yes atraumatic Eyes: General: appearance normal, both eyes and all related structures Neck: Neck: Yes normal visual inspection, Yes full ROM, Yes no meningeal signs, Yes trachea midline and Yes supple Chest: Chest palpation & inspection: normal inspection of the chest Resp: Other: no appreciable rales, rhonchi, wheezing Effort & Inspection: normal respiratory effort Cardio: Rate: regular rate Rhythm: regular rhythm GI: Inspection: Yes normal to inspection, No Abdominal wall edema and No distended Palpation (GI): Soft to palpation, not firm, nontender, no guarding and not rigid Skin: General skin exam: no rashes or lesions noted Neuro: General: patient oriented x3, tone normal, moves all extremities, no meningeal signs and no focal motor deficits Extrem: Other: trace pitting edema to bilateral shins General: Yes normal to inspection, Yes full ROM and Yes capillary refill normal Psych: Appearance: grossly normal Objective Data Labs 09/26/23 04:38 09/26/23 04:38 Labs: Laboratory Results - last 24 hr 09/25/23 09/26/23 20:06 04:38 WBC 9.2 RBC 4.65 Hgb 14.0 Hct 41.9 L MCV 90.1 MCH 30.1 MCHC 33.4 RDW 15.0 Plt Count 480 H MPV 10.7 Immature Gran % (Auto) 2.3 H Neut % (Auto) 48.5 Lymph % (Auto) 30.9 Cloud % (Auto) 15.1 H Eos % (Auto) 1.6 Baso % (Auto) 1.6 Lymph # (Auto) 2.9 Cloud # (Auto) 1.4 H Eos # (Auto) 0.2 Baso # (Auto) 0.2 Abs Immat Gran (auto) 0.21 H Absolute Neuts (auto) 4.5 Absolute Nucleated RBC 0.000 Nucleated RBC % (auto) 0.0 Sodium 145 Potassium 3.1 L Chloride 108 Carbon Dioxide 23 Anion Gap 17 BUN 15 Creatinine 0.81 Estim Creat Clear Calc 120.6 Estimated GFR > 60 Random Glucose 128 H Calcium 9.3 Phosphorus 3.5 Magnesium 2.2 Total Bilirubin 0.8 AST 32 ALT 30 Alkaline Phosphatase 115 Total Protein 7.3 Albumin 3.7 Random Vancomycin 16.0 Progress Note: A&P Assessment and plan (1) Acute respiratory failure with hypoxia: Status: Acute (2) Pulmonary aspiration: Status: Acute (3) Alcohol withdrawal: Status: Acute Plan Patient is a 67 Y M with prior traumatic brain injury, PTSD, and alcohol misuse, c/b prior delirium tremens, initially admitted 09/13 w/ alcohol withdrawal; on 09/19, developed acute hypoxic respiratory failure, likely d/t aspiration, intubated, extubated 09/22; ICU course c/b encephalopathy, likely hyperactive delirium N: encephalopathy, markedly improved CV: no acute issues R: acute hypoxic respiratory failure, intubated 09/19, extubated 09/22, resolved GI: repeat speech/swallow evaluation; advance diet as tolerated : no acute issues H: no acute issues; chemical DVT prophylaxis ID: c/f aspiration, empiric vancomycin, zosyn E: no acute issues; to monitor hypo-/hyper-glycemia S: alcohol misuse; addiction medicine consult Quality Stroke Does the patient have a stroke diagnosis?: No VTE Prior VTE?: No VTE Risk Level:: Medical - moderate - high VTE Device Contraindication: Treatment Not Indicated VTE Drug Contraindication: N/A - Med Ordered
[2023-09-26] MEDS: Losartan Potassium 50 MG TABLET 100 MG PO (08:17)
[2023-09-26] MEDS: cloNIDine HCL 0.2 MG TABLET PO ×2 (08:17→21:08)
[2023-09-26] MEDS: Famotidine/PF 20 MG/2 ML VIAL IVPUSH (08:17)
[2023-09-26] MEDS: Furosemide 20 MG/2 ML VIAL 10 MG IVPUSH ×2 (08:17→17:08)
[2023-09-26] MEDS: Nystatin Powder 15 GM BOTTLE 1 APPL TOPICAL ×2 (08:18→21:22)
[2023-09-26] MEDS: Lidocaine 4 % Patch ADH..PATCH 2 PATCH TRANSDERMA (08:18)
[2023-09-26] MEDS: Valproic Acid (as Sodium Salt) 1,000 MG in Dextrose 5 % 50 ML 60 MG IV ×2 (08:18→21:08)
--- NOTE | 2023-09-26 09:37 | MHC.SL.SWA ---
Speech Pathologist Impression: Risk of Aspiration Due to: Hx of Recent Extubation Weak Cough Weak Voice Dysphasia Diet Status: Recommend UPGRADE to thin liquids, continue on Ground/Mechanical (NDD2) and pills whole in puree. Straw is allowed with supervision, assure that patient is taking small sips and not chain sipping. Continue to avoid MIXED consistencies, patient continues to need 1-1 assistance at meals. Patient is requesting ice chips, which should be allowed in small amounts. Continue aspiration precautions. Patient also requested at this visit Ensure supplements. Liquid Consistency and Strategies for Safe Swallow: Liquid Intake Recommendation: Thin Liquid Intake Strategies: Small Sips Solid Food Consistency: Dietary Recommendations: Grnd/Mech Altered (NDD2) Additional Modifications to Solid Foods: Oral Medication Intake: Whole with Puree Please contact the pharmacy regarding appropriate crushable or liquid drug formulations that are available whenever modified delivery is recommended. Compensatory Strategies and Precautions to be Taken for Safe Swallow: Sitting Upright (90 deg) Liquids from Cup Liquids from Straw Small Bites and Sips Alternate Liquids/Solids Rate of Ingestion Change Supervision While Eating and Drinking for Safe Swallow: Total Assistance (1:1) Foods to Avoid: Avoid MIXED textures, hard difficult to chew solids. Swallowing Recommended Treatments: Compens. Strategy Educat. Recommendation for Speech: Further Testing Needed Inpatient Speech Therapy Comment: Attempted to see patient this morning at breakfast to assess toleration of meal, however per RN patient had refused breakfast, not hungry. Patient reported that his throat was feeling sore and he was preferring to eat items like ice cream, puddings, apple sauce. Patient c/o about thick drinks. FACTORY SUPERVISOR noted NT OJ on table with straw by patient, requested to observe patient drinking this with straw (no straws had been specified yesterday, as patient tends to chug/chain sip ). Patient took two sips by straw, produced a timely swallow, had no clinical signs of aspiration. With this, patient again c/o about the thick orange juice. FACTORY SUPERVISOR then did repeat trials of water with patient, by tsp, cup sip and straw sip. Patient noted to tolerate all conditions, producing a timely swallow, no evidence of vocal or respiratory wetness this a.m., no coughing or throat clearing, 02 stat were stable in the low 90s throughout. Recommend UPGRADE to thin liquids, continue on Ground/Mechanical (NDD2) and pills whole in puree. Continue to avoid MIXED consistencies, patient continues to need 1-1 assistance at meals. Patient is requesting ice chips, which should be allowed in small amounts. Patient also requested at this visit ensure supplements. FACTORY SUPERVISOR will continue to follow. Frequency/Duration: daily M-F Date Range for Service Req: Timeline to reassess: C.O.D. Audit Clerk Clinican/Clinical Fellow: No Supervisory Statement: I have reviewed and agree with the student/clinical fellow's documentation: N/A Speech Language Pathologist: Christal Canseco M.A., CCC-FACTORY SUPERVISOR
--- NOTE | 2023-09-26 09:46 | MHC.CM.PN ---
Addendum entered by Nguyen Mixon 09/26/23 10:07: Broad STR referrals placed should pt be too deconditioned for INPT ETOH rehab. PT eval is pending. CM to follow Original Note: Met with pt to discuss d/c planning needs: pt more engaging today - states feeling better and happy to be extubated. Pt states he met with computer assembler this am and the plan is for him to d/c to an inpt program for ETOH cessation. Pt stated to CM, I was really sick this time. I don't want to go through this again Pt agrees to a HCP completion naming his [place] casework specialist Antoni as his only agent. Antoni will be notified of pt's plan and a copy of his completed HCP will be faxed to Antoni. Pt will be transferred to the medical floor today: d/c plan will be coordinated by Recovery team for INPT ETOH rehab. CM to follow for any changes.
--- NOTE | 2023-09-26 09:52 | MHC.CLN ---
F/U DISCUSSED AT ROUNDS WITH PT REFUSED BREAKFAST BUT DRINKING FLUIDS WELL PER NSG DIET ADVANCED TO GRD M/S WITH NT LIQ PER WORDPRESS DEVELOPER RECOMMEND ADDING ENSURE BID TO INCREASE KCALS SUPP TO PROVIDE 700KCALS, 40G PROTEIN MONITOR PO AND ENCOURAGE SUPPLEMENTS RD TO FOLLOW WEEKLY
--- NOTE | 2023-09-26 10:01 | MHC.RECOVRN ---
Met with pt in 252 to discuss alcohol use and provide support. Pt sitting in bed, awake, alert, easily engages in conversation, tearful at times. Pt reports alcohol use, 20 nips Fireball daily. Pt unable to articulate how long he has been drinking that amount. Pt does inform t/w he is able to go 8-10 days at a time without alcohol use. During that time, pt reports he does not feel withdrawal symptoms. Pt denies family hx AUD. Pt denies hx ATS or tx for AUD. Pt reports longest period in recovery was 4-5 years approx 4-5 years ago. Pt reports his children are supportive. Pt reports alcohol use began at age 21 after I left the service. Pt states I saw things no 18 year old should ever see. Pt reports he has a therapist and psychiatrist who do the best they can. Discussed goals related to alcohol use, pts goal is abstinence and placement into a program. Educated pt on need to be independent with care. Pt reports he will do anything if STR is recommended prior to AUD treatment. Pt denies questions or concerns for t/w. Discussed with CM.
[2023-09-26] MEDS: vancomycin HCL 1,250 MG in 0.9 % Sodium Chloride 250 ML 166.6 MG IV (10:09)
--- NOTE | 2023-09-26 12:39 | PC.NURSE ---
Patient arrived to unit at 1215 in bed with transporter. Vital signs obtained- WNL. Patient oriented to room. High fall risk interventions in place. Airloss mattress on. 3 lumen PICC line to right upper arm- lines patent with positive blood return. Resting comfortably in bed. No signs or symptoms of distress. Call colvin within reach.
[2023-09-26] MEDS: Enoxaparin Sodium 40 MG/0.4 ML SYRINGE SUBCUT (13:43)
--- NOTE | 2023-09-26 14:30 | MHC.CM.PN ---
CM SPOKE WITH [facility], PT DOES NOT HAVE A SNF BENEFIT, PT WILL NEED STR AND WILL NEED TO UTILIZE HIS MH BENEFIT. REFERRALS EXPANDED. CM WILL CONTINUE TO FOLLOW FOR ANY CHANGE TO DC PLAN/NEEDS.
[2023-09-26] MEDS: 0.9 % Sodium Chloride Flush 10 ML SYRINGE 5 ML IVFLUSH ×2 (17:12→21:09)
[2023-09-26] MEDS: QUEtiapine Fumarate 25 MG TABLET PO (21:08)
[2023-09-26 21:55] LABS: Vancomycin Random 19.6 mcg/mL (15-20)
[2023-09-26] MEDS: vancomycin HCL 1,000 MG in 0.9 % Sodium Chloride 250 ML 270 MG IV (22:18)
[2023-09-27] VITALS (7 sets, daily range): BP systolic 125–171; BP diastolic 63–83; PULSE 81–94; RESP 16–18; TEMP 36.1–36.4; O2SAT 93–96
[2023-09-27] MEDS: Piperacillin Sodium/Tazobactam 4.5 GM in 0.9 % Sodium Chloride 100 ML IV ×4 (00:20→18:39)
[2023-09-27] MEDS: 0.9 % Sodium Chloride Flush 3 ML SYRINGE IVFLUSH ×3 (00:25→15:37)
[2023-09-27] MEDS: HYDROmorphone HCl 2 MG/ML VIAL IVPUSH ×4 (05:39→21:19)
[2023-09-27 06:05] LABS: MANUAL DIFF FLAG NO
[2023-09-27 06:14] LABS: Basophils Absolute Auto 0.2 X10*3/uL (0.0-0.2); Basophils Percent Auto 1.5 % (0-2); Eosinophils Absolute Auto 0.2 X10*3/uL (0.0-0.4); Eosinophils Percent Auto 1.7 % (0-4); Hematocrit 42.2 % (42.0-52.0); Hemoglobin 13.3 g/dl (14.0-18.0); Imm Gran Abs Auto 0.16 X10*3/uL (0.00-0.03); Imm Gran Pct Auto 1.6 % (0.0-0.4); Lymphocytes Absolute Auto 2.1 X10*3/uL (1.2-4.9); Lymphocytes Percent Auto 20.6 % (20-40); Mean Corpuscular HGB Conc 31.5 g/dl (31.0-36.0); Mean Corpuscular Hemoglobin 29.8 pg (27.0-33.0); Mean Corpuscular Volume 94.4 fL (80.0-98.0); Mean Platelet Volume 11.4 fL (9.4-12.4); Monocytes Absolute Auto 1.2 X10*3/uL (0.1-1.2); Monocytes Percent Auto 11.8 % (2-11); Neutrophils Absolute Auto 6.4 x10*3/uL (2.0-8.3); Neutrophils Percent Auto 62.8 % (45-73); Platelet Count 419 X10*3/uL (160-400); Red Blood Count 4.47 X10*6/uL (4.60-5.80); Red Cell Distribution Width 14.7 % (11.0-16.0); White Blood Count 10.1 X10*3/uL (4.8-10.8)
[2023-09-27 06:55] LABS: Alanine Aminotransferase 31 U/L (0-40); Albumin Level 3.6 g/dL (3.5-5.0); Alkaline Phosphatase 101 U/L (39-117); Anion Gap 18 (12-20); Aspartate Amino Transferase 41 U/L (5-37); Bilirubin Total 0.7 mg/dL (0.0-1.0); Blood Urea Nitrogen 17 mg/dL (9-16); Calcium 9.5 mg/dL (8.4-10.2); Carbon Dioxide 23 mmol/L (22-29); Chloride 107 mmol/L (96-108); Creatinine Clr Calc Pharmacy 87.3; Estimated Glomerular Filt Rate > 60; Glucose Random 95 mg/dL (60-115); Magnesium 2.4 mg/dL (1.6-2.6); Phosphorus 3.3 mg/dL (2.7-4.5); Potassium 3.6 mmol/L (3.3-5.1); Sodium 144 mmol/L (135-145); Total Protein 7.2 g/dL (6.5-8.0)
[2023-09-27] MEDS: 0.9 % Sodium Chloride Flush 10 ML SYRINGE 5 ML IVFLUSH ×3 (07:30→22:01)
[2023-09-27] MEDS: Potassium Chloride Packet 20 MEQ PACKET 40 MEQ PO (07:42)
[2023-09-27] MEDS: cloNIDine HCL 0.2 MG TABLET PO ×2 (07:43→21:11)
[2023-09-27] MEDS: Furosemide 20 MG/2 ML VIAL 10 MG IVPUSH ×2 (07:43→18:38)
[2023-09-27] MEDS: Losartan Potassium 50 MG TABLET 100 MG PO (07:44)
[2023-09-27] MEDS: Famotidine/PF 20 MG/2 ML VIAL IVPUSH (07:44)
[2023-09-27] MEDS: Lidocaine 4 % Patch ADH..PATCH 2 PATCH TRANSDERMA (07:45)
[2023-09-27] MEDS: Nystatin Powder 15 GM BOTTLE 1 APPL TOPICAL (07:47)
[2023-09-27] MEDS: Valproic Acid (as Sodium Salt) 1,000 MG in Dextrose 5 % 50 ML 60 MG IV ×2 (09:50→21:40)
--- NOTE | 2023-09-27 10:50 | PC.NURSE ---
OK to administer Vancomycin dose per pharmacist ,Yuki Medellin 19.6 yesterday
[2023-09-27] MEDS: vancomycin HCL 1,000 MG in 0.9 % Sodium Chloride 250 ML 270 MG IV (11:27)
[2023-09-27] MEDS: Enoxaparin Sodium 40 MG/0.4 ML SYRINGE SUBCUT (14:07)
--- NOTE | 2023-09-27 14:48 | HO.PM.IMPN ---
Subjective Subjective Date of Service: 09/27/23 Interval History: Remains confused as to place. Oriented to person Review of Systems Denies chest pain Denies shortness of breath Denies nausea vomiting diarrhea Denies fever chills Physical Exam Vital Signs: Vital Signs: Last Vital Signs Temp 97.0 F 09/27/23 07:31 Pulse 94 09/27/23 07:31 Resp 16 09/27/23 07:31 BP 134/83 09/27/23 07:31 Pulse Ox 94 09/27/23 07:31 O2 Del Method Room Air 09/27/23 07:31 O2 Flow Rate 2 09/25/23 01:00 FiO2 45 09/23/23 14:00 BMI result Body Mass Index 45.0 Const: Other: Awake alert mildly confused but easily reoriented Resp: Other: Clear to auscultation bilaterally no rales rhonchi or wheezes Cardio: Other: No S4; positive S1-S2; no S3 murmurs rubs gallops GI: Other: Soft nontender nondistended normoactive bowel sounds Extrem: Other: No edema bilaterally Objective Data Active Medications Clonidine HCl (Clonidine Hcl 0.2 Mg Tablet) 0.2 mg PO BID [facility]; Protocol Last Admin: 09/27/23 07:43 Dose: 0.2 mg Documented By: JACK Enoxaparin Sodium (Enoxaparin Sodium 40 Mg/0.4 Ml Syringe) 40 mg SUBCUT Q24H [facility] Last Admin: 09/27/23 14:07 Dose: 40 mg Documented By: MIGUEL Famotidine (Famotidine/Pf 20 Mg/2 Ml Vial) 20 mg IVPUSH DAILY [facility] Last Admin: 09/27/23 07:44 Dose: 20 mg Documented By: JACK Furosemide (Furosemide 20 Mg/2 Ml Vial) 10 mg IVPUSH BID@0900,1800 [facility]; Protocol Last Admin: 09/27/23 07:43 Dose: 10 mg Documented By: JACK Hydromorphone HCl (Hydromorphone Hcl 2 Mg/Ml Vial) 2 mg IVPUSH Q4H PRN; Protocol PRN Reason: Pain, Moderate(Pain Scale 4-6) Last Admin: 09/27/23 14:07 Dose: 2 mg Documented By: MIGUEL Hydroxyzine HCl (Hydroxyzine Hcl 50 Mg Tablet) 50 mg PO TID PRN PRN Reason: Anxiety Last Admin: 09/26/23 00:02 Dose: 50 mg Documented By: MIKEY Valproic Acid 1,000 mg/ (Dextrose) 60 mls @ 60 mls/hr IV BID [facility] Last Infusion: 09/27/23 10:50 Dose: Infused Documented By: JACK Piperacillin Sod/Tazobactam (Sod 4.5 gm/ Sodium Chloride) 100 mls @ 200 mls/hr IV Q6H [facility] Last Infusion: 09/27/23 13:33 Dose: Infused Documented By: JACK Vancomycin HCl 1,000 mg/ (Sodium Chloride) 270 mls @ 270 mls/hr IV Q12H [facility] Last Infusion: 09/27/23 12:49 Dose: Infused Documented By: JACK Lactulose (Lactulose 20 Gm/30 Ml Solution) 30 gm PO BID PRN PRN Reason: Constipation Lidocaine (Lidocaine 4 % Patch Adh..Patch) 2 patch TRANSDERMA DAILY [facility]; Protocol Last Admin: 09/27/23 07:45 Dose: 2 patch Documented By: JACK Lorazepam (Lorazepam 0.5 Mg Tablet) 0.5 mg PO Q4H PRN PRN Reason: Anxiety Last Admin: 09/25/23 15:36 Dose: 0.5 mg Documented By: NUBIA Losartan Potassium (Losartan Potassium 50 Mg Tablet) 100 mg PO DAILY [facility]; Protocol Last Admin: 09/27/23 07:44 Dose: 100 mg Documented By: JACK Nystatin (Nystatin Powder 15 Gm Bottle) 1 appl TOPICAL BID [facility]; Protocol Last Admin: 09/27/23 07:47 Dose: 1 appl Documented By: JACK Pharmacy Consult (Consult Rx Etoh Phenob Im/Po) 1 each MISCELLANE ONCE PRN; Protocol PRN Reason: Consult order Pharmacy Consult (Consult Rx Etoh Phenob Im/Po) 1 each MISCELLANE ONCE PRN; Protocol PRN Reason: Consult order Pharmacy Consult (Consult Rx Vancomycin Dosing) 1 each MISCELLANE DAILY PRN PRN Reason: Consult order Potassium Chloride (Potassium Chloride Packet 20 Meq Packet) 40 meq PO DAILY [facility] Last Admin: 09/27/23 07:42 Dose: 40 meq Documented By: JACK Quetiapine Fumarate (Quetiapine Fumarate 25 Mg Tablet) 25 mg PO BEDTIME [facility] Last Admin: 09/26/23 21:08 Dose: 25 mg Documented By: MARNI Sodium Chloride (0.9 % Sodium Chloride Flush 3 Ml Syringe) 3 ml IVFLUSH QSHIFT [facility] Last Admin: 09/27/23 07:29 Dose: 3 ml Documented By: JACK Sodium Chloride (0.9 % Sodium Chloride Flush 10 Ml Syringe) 5 ml IVFLUSH TID [facility] Last Admin: 09/27/23 07:30 Dose: 5 ml Documented By: JACK Labs 09/27/23 05:42 09/27/23 05:42 Labs: Laboratory Results - last 24 hr 09/26/23 09/27/23 21:16 05:42 MCV 94.4 MCH 29.8 MCHC 31.5 RDW 14.7 Plt Count 419 H MPV 11.4 Immature Gran % (Auto) 1.6 H Neut % (Auto) 62.8 Lymph % (Auto) 20.6 [place] % (Auto) 11.8 H Eos % (Auto) 1.7 Baso % (Auto) 1.5 Lymph # (Auto) 2.1 [place] # (Auto) 1.2 Eos # (Auto) 0.2 Baso # (Auto) 0.2 Abs Immat Gran (auto) 0.16 H Absolute Neuts (auto) 6.4 Absolute Nucleated RBC 0.000 Nucleated RBC % (auto) 0.0 Anion Gap 18 Estim Creat Clear Calc 87.3 Estimated GFR > 60 Random Glucose 95 Calcium 9.5 Phosphorus 3.3 Magnesium 2.4 Total Bilirubin 0.7 AST 41 H ALT 31 Alkaline Phosphatase 101 Total Protein 7.2 Albumin 3.6 Random Vancomycin 19.6 Assessment and Plan (1) Alcohol withdrawal: Status: Acute (2) Acute respiratory failure with hypoxia: Status: Acute (3) Pulmonary aspiration: Status: Acute Plan 67 year old male with PTSD, panic disorder, alcohol dependency here alcohol withdrawal requiring intubation and sedation. Successfully weaned off both and is now doing well with p.o. on floor 1.Alcohol withdrawal -continue to observe on CIWA scale -currently maintained with Ativan p.r.n. -will ultimately need rehab 2. Likely aspiration -continue empiric vanco and Zosyn -check WBC in a.m.; if improved with switch to p.o. 3.HTN -acceptable control on current therapies -adjust as indicated 4. Chronic obstructive pulmonary disease -stable and well compensated at this time Lovenox Full code Patient requires ongoing hospitalization to arrange safe disposition and continue to monitor on CIWA scale. High risk for outpatient failure Quality Stroke Does the patient have a stroke diagnosis?: No VTE Prior VTE?: No VTE Risk Level:: Medical - moderate - high VTE Device Contraindication: Treatment Not Indicated VTE Drug Contraindication: N/A - Med Ordered
[2023-09-27] MEDS: QUEtiapine Fumarate 25 MG TABLET PO (21:12)
[2023-09-27 21:50] LABS: Vancomycin Random 21.2 mcg/mL (15-20)
[2023-09-28] VITALS (7 sets, daily range): BP systolic 108–164; BP diastolic 61–79; PULSE 72–90; RESP 15–18; TEMP 36.1–36.9; O2SAT 92–95
[2023-09-28] MEDS: Piperacillin Sodium/Tazobactam 4.5 GM in 0.9 % Sodium Chloride 100 ML IV ×4 (00:39→18:42)
[2023-09-28] MEDS: 0.9 % Sodium Chloride Flush 3 ML SYRINGE IVFLUSH ×3 (00:41→13:58)
[2023-09-28] MEDS: HYDROmorphone HCl 2 MG/ML VIAL IVPUSH ×5 (01:30→18:38)
[2023-09-28 06:41] LABS: Basophils Absolute Auto 0.1 X10*3/uL (0.0-0.2); Basophils Percent Auto 1.3 % (0-2); Eosinophils Absolute Auto 0.2 X10*3/uL (0.0-0.4); Eosinophils Percent Auto 2.2 % (0-4); Hematocrit 41.7 % (42.0-52.0); Hemoglobin 13.3 g/dl (14.0-18.0); Imm Gran Abs Auto 0.13 X10*3/uL (0.00-0.03); Imm Gran Pct Auto 1.2 % (0.0-0.4); Lymphocytes Absolute Auto 3.7 X10*3/uL (1.2-4.9); Lymphocytes Percent Auto 34.6 % (20-40); MANUAL DIFF FLAG SCAN; Mean Corpuscular HGB Conc 31.9 g/dl (31.0-36.0); Mean Corpuscular Hemoglobin 29.8 pg (27.0-33.0); Mean Corpuscular Volume 93.3 fL (80.0-98.0); Mean Platelet Volume 11.1 fL (9.4-12.4); Monocytes Absolute Auto 1.7 X10*3/uL (0.1-1.2); Neutrophils Absolute Auto 4.7 x10*3/uL (2.0-8.3); Neutrophils Percent Auto 44.7 % (45-73); Platelet Count 475 X10*3/uL (160-400); Red Blood Count 4.47 X10*6/uL (4.60-5.80); Red Cell Distribution Width 14.6 % (11.0-16.0); SCAN SMEAR FLAG 1; White Blood Count 10.6 X10*3/uL (4.8-10.8)
[2023-09-28 06:54] LABS: Alanine Aminotransferase 26 U/L (0-40); Albumin Level 3.7 g/dL (3.5-5.0); Alkaline Phosphatase 90 U/L (39-117); Anion Gap 17 (12-20); Aspartate Amino Transferase 26 U/L (5-37); Bilirubin Total 0.5 mg/dL (0.0-1.0); Blood Urea Nitrogen 14 mg/dL (9-16); Calcium 9.7 mg/dL (8.4-10.2); Carbon Dioxide 25 mmol/L (22-29); Chloride 105 mmol/L (96-108); Creatinine Clr Calc Pharmacy 95.8; Estimated Glomerular Filt Rate > 60; Glucose Random 91 mg/dL (60-115); Magnesium 2.4 mg/dL (1.6-2.6); Phosphorus 2.7 mg/dL (2.7-4.5); Potassium 3.4 mmol/L (3.3-5.1); Sodium 144 mmol/L (135-145)
[2023-09-28 07:01] LABS: SLIDE REVIEW VERIFIED
[2023-09-28] MEDS: 0.9 % Sodium Chloride Flush 10 ML SYRINGE 5 ML IVFLUSH ×3 (07:06→20:21)
[2023-09-28] MEDS: Potassium Chloride Packet 20 MEQ PACKET 40 MEQ PO (07:26)
[2023-09-28] MEDS: Lidocaine 4 % Patch ADH..PATCH 2 PATCH TRANSDERMA (07:27)
[2023-09-28] MEDS: Losartan Potassium 50 MG TABLET 100 MG PO (07:27)
[2023-09-28] MEDS: cloNIDine HCL 0.2 MG TABLET PO ×2 (07:28→20:21)
[2023-09-28] MEDS: Furosemide 20 MG/2 ML VIAL 10 MG IVPUSH (07:28)
[2023-09-28] MEDS: Famotidine/PF 20 MG/2 ML VIAL IVPUSH (07:39)
[2023-09-28] MEDS: Nystatin Powder 15 GM BOTTLE 1 APPL TOPICAL (07:39)
[2023-09-28] MEDS: Valproic Acid (as Sodium Salt) 1,000 MG in Dextrose 5 % 50 ML 60 MG IV (10:24)
--- NOTE | 2023-09-28 11:44 | PC.NURSE ---
VT 21.2 yesterday,ok per pharmacist to administer dose as scheduled today
[2023-09-28] MEDS: vancomycin HCL 750 MG in 0.9 % Sodium Chloride 250 ML 265 MG IV (11:51)
--- NOTE | 2023-09-28 12:12 | P.PNIM_ITS ---
Subjective Subjective Date of Service: 09/28/23 Interval History: No acute issues overnight. Mentation somewhat clearer Review of Systems Denies chest pain Denies shortness of breath Denies nausea vomiting diarrhea Denies fever chills Physical Exam 2 Vital Signs: Vital Signs: Last Vital Signs Temp 97.6 F 09/28/23 07:12 Pulse 78 09/28/23 07:12 Resp 16 09/28/23 07:12 BP 124/77 09/28/23 07:12 Pulse Ox 95 09/28/23 07:12 O2 Del Method Room Air 09/28/23 07:12 O2 Flow Rate 2 09/25/23 01:00 FiO2 45 09/23/23 14:00 BMI result Body Mass Index 45.0 Const: Other: Awake alert mildly confused but easily reoriented Resp: Other: Clear to auscultation bilaterally no rales rhonchi or wheezes Cardio: Other: No S4; positive S1-S2; no S3 murmurs rubs gallops GI: Other: Soft nontender nondistended normoactive bowel sounds Extrem: Other: No edema bilaterally Objective Data Active Medications Clonidine HCl (Clonidine Hcl 0.2 Mg Tablet) 0.2 mg PO BID [facility]; Protocol Last Admin: 09/28/23 07:28 Dose: 0.2 mg Documented By: JACK Enoxaparin Sodium (Enoxaparin Sodium 40 Mg/0.4 Ml Syringe) 40 mg SUBCUT Q24H [facility] Last Admin: 09/27/23 14:07 Dose: 40 mg Documented By: MIGUEL Famotidine (Famotidine/Pf 20 Mg/2 Ml Vial) 20 mg IVPUSH DAILY [facility] Last Admin: 09/28/23 07:39 Dose: 20 mg Documented By: JACK Furosemide (Furosemide 20 Mg/2 Ml Vial) 10 mg IVPUSH BID@0900,1800 [facility]; Protocol Last Admin: 09/28/23 07:28 Dose: 10 mg Documented By: JACK Hydromorphone HCl (Hydromorphone Hcl 2 Mg/Ml Vial) 2 mg IVPUSH Q4H PRN; Protocol PRN Reason: Pain, Moderate(Pain Scale 4-6) Last Admin: 09/28/23 10:24 Dose: 2 mg Documented By: JACK Hydroxyzine HCl (Hydroxyzine Hcl 50 Mg Tablet) 50 mg PO TID PRN PRN Reason: Anxiety Last Admin: 09/26/23 00:02 Dose: 50 mg Documented By: MIKEY Valproic Acid 1,000 mg/ (Dextrose) 60 mls @ 60 mls/hr IV BID [facility] Last Infusion: 09/28/23 11:46 Dose: Infused Documented By: JACK Piperacillin Sod/Tazobactam (Sod 4.5 gm/ Sodium Chloride) 100 mls @ 200 mls/hr IV Q6H [facility] Last Infusion: 09/28/23 07:10 Dose: Infused Documented By: JACK Vancomycin HCl 750 mg/ Sodium (Chloride) 265 mls @ 265 mls/hr IV Q12H [facility] Last Admin: 09/28/23 11:51 Dose: 265 mls/hr Documented By: JACK Lactulose (Lactulose 20 Gm/30 Ml Solution) 30 gm PO BID PRN PRN Reason: Constipation Lidocaine (Lidocaine 4 % Patch Adh..Patch) 2 patch TRANSDERMA DAILY [facility]; Protocol Last Admin: 09/28/23 07:27 Dose: 2 patch Documented By: JACK Lorazepam (Lorazepam 0.5 Mg Tablet) 0.5 mg PO Q4H PRN PRN Reason: Anxiety Last Admin: 09/25/23 15:36 Dose: 0.5 mg Documented By: NUBIA Losartan Potassium (Losartan Potassium 50 Mg Tablet) 100 mg PO DAILY [facility]; Protocol Last Admin: 09/28/23 07:27 Dose: 100 mg Documented By: JACK Nystatin (Nystatin Powder 15 Gm Bottle) 1 appl TOPICAL BID [facility]; Protocol Last Admin: 09/28/23 07:39 Dose: 1 appl Documented By: JACK Pharmacy Consult (Consult Rx Etoh Phenob Im/Po) 1 each MISCELLANE ONCE PRN; Protocol PRN Reason: Consult order Pharmacy Consult (Consult Rx Etoh Phenob Im/Po) 1 each MISCELLANE ONCE PRN; Protocol PRN Reason: Consult order Pharmacy Consult (Consult Rx Vancomycin Dosing) 1 each MISCELLANE DAILY PRN PRN Reason: Consult order Potassium Chloride (Potassium Chloride Packet 20 Meq Packet) 40 meq PO DAILY [facility] Last Admin: 09/28/23 07:26 Dose: 40 meq Documented By: JACK Quetiapine Fumarate (Quetiapine Fumarate 25 Mg Tablet) 25 mg PO BEDTIME [facility] Last Admin: 09/27/23 21:12 Dose: 25 mg Documented By: OLAF Sodium Chloride (0.9 % Sodium Chloride Flush 3 Ml Syringe) 3 ml IVFLUSH QSHIFT [facility] Last Admin: 09/28/23 07:10 Dose: 3 ml Documented By: JACK Sodium Chloride (0.9 % Sodium Chloride Flush 10 Ml Syringe) 5 ml IVFLUSH TID [facility] Last Admin: 09/28/23 07:06 Dose: 5 ml Documented By: JACK Labs 09/28/23 05:45 09/28/23 05:45 Labs: Laboratory Results - last 24 hr 09/27/23 09/28/23 21:19 05:45 MCV 93.3 MCH 29.8 MCHC 31.9 RDW 14.6 Plt Count 475 H MPV 11.1 Immature Gran % (Auto) 1.2 H Neut % (Auto) 44.7 L Lymph % (Auto) 34.6 [place] % (Auto) 16.0 H Eos % (Auto) 2.2 Baso % (Auto) 1.3 Lymph # (Auto) 3.7 [place] # (Auto) 1.7 H Eos # (Auto) 0.2 Baso # (Auto) 0.1 Abs Immat Gran (auto) 0.13 H Absolute Neuts (auto) 4.7 Absolute Nucleated RBC 0.000 Nucleated RBC % (auto) 0.0 Smear Tech's Comments VERIFIED Anion Gap 17 Estim Creat Clear Calc 95.8 Estimated GFR > 60 Random Glucose 91 Calcium 9.7 Phosphorus 2.7 Magnesium 2.4 Total Bilirubin 0.5 AST 26 ALT 26 Alkaline Phosphatase 90 Total Protein 7.0 Albumin 3.7 Random Vancomycin 21.2 H Assessment and Plan (1) Alcohol withdrawal: Status: Acute Plan 67 year old male with PTSD, panic disorder, alcohol dependency here alcohol withdrawal requiring intubation and sedation. Successfully weaned off both and is now doing well with p.o. on floor 1.Alcohol withdrawal -continue to observe on CIWA scale... Markedly improved -currently maintained with Ativan p.r.n. -will ultimately need rehab 2. Likely aspiration -clinically asymptomatic without O2 requirement or white count -D/C empiric vanco and Zosyn 3.HTN -acceptable control on current therapies -adjust as indicated 4. Chronic obstructive pulmonary disease -stable and well compensated at this time Lovenox Full code Patient requires ongoing hospitalization to arrange safe disposition and continue to monitor on CIWA scale. High risk for outpatient failure Quality Stroke Does the patient have a stroke diagnosis?: No VTE Prior VTE?: No VTE Risk Level:: Medical - moderate - high VTE Device Contraindication: Treatment Not Indicated VTE Drug Contraindication: N/A - Med Ordered
[2023-09-28] MEDS: Enoxaparin Sodium 40 MG/0.4 ML SYRINGE SUBCUT (13:55)
--- NOTE | 2023-09-28 16:19 | PC.NURSE ---
patient refused lasix,Dr. Sutton notified
[2023-09-28] MEDS: QUEtiapine Fumarate 25 MG TABLET PO (20:21)
[2023-09-28 21:34] LABS: Vancomycin Random 14.7 mcg/mL (15-20)
[2023-09-29 02:36] VITALS: BP 170/76; PULSE 82; RESP 16; TEMP 36; O2SAT 96
[2023-09-29] MEDS: HYDROmorphone HCl 2 MG/ML VIAL IVPUSH ×5 (02:38→21:16)
--- NOTE | 2023-09-29 05:28 | PC.NURSE ---
Pt AOx2, mumbles at times but can make needs known. Pt refused IV vanco and valproic acid. He stated They give me diarrhea. My infection has been gone . Educated pt on importance of medication, he still refused. Tigered hospitalist who replied Dr. Rodriguez's note said to d/c the vanco and zosyn and that she would touch base with MD. This RN will pass onto next RN. Pt utilizing bedside commode and urinal. Call colvin within reach. Bed alarm on, camera in room.
[2023-09-29 08:00] VITALS: BP 121/80; PULSE 75; RESP 18; TEMP 36.2; O2SAT 95
[2023-09-29 08:55] LABS: MANUAL DIFF FLAG NO
[2023-09-29 08:56] LABS: Basophils Absolute Auto 0.1 X10*3/uL (0.0-0.2); Basophils Percent Auto 1.5 % (0-2); Eosinophils Absolute Auto 0.2 X10*3/uL (0.0-0.4); Eosinophils Percent Auto 2.6 % (0-4); Hematocrit 40.2 % (42.0-52.0); Hemoglobin 12.9 g/dl (14.0-18.0); Imm Gran Abs Auto 0.11 X10*3/uL (0.00-0.03); Imm Gran Pct Auto 1.4 % (0.0-0.4); Lymphocytes Absolute Auto 2.4 X10*3/uL (1.2-4.9); Lymphocytes Percent Auto 29.5 % (20-40); Mean Corpuscular HGB Conc 32.1 g/dl (31.0-36.0); Mean Corpuscular Hemoglobin 30.4 pg (27.0-33.0); Mean Corpuscular Volume 94.6 fL (80.0-98.0); Mean Platelet Volume 11.6 fL (9.4-12.4); Monocytes Percent Auto 12.4 % (2-11); Neutrophils Absolute Auto 4.2 x10*3/uL (2.0-8.3); Neutrophils Percent Auto 52.6 % (45-73); Platelet Count 507 X10*3/uL (160-400); Red Blood Count 4.25 X10*6/uL (4.60-5.80); Red Cell Distribution Width 14.6 % (11.0-16.0)
[2023-09-29] MEDS: oxyCODONE HCl Immed Release 5 MG TABLET 10 MG PO ×2 (09:06→14:39)
[2023-09-29] MEDS: cloNIDine HCL 0.2 MG TABLET PO ×2 (09:06→21:10)
[2023-09-29] MEDS: Furosemide 20 MG TABLET PO (09:06)
[2023-09-29] MEDS: Losartan Potassium 50 MG TABLET 100 MG PO (09:06)
[2023-09-29] MEDS: Famotidine/PF 20 MG/2 ML VIAL IVPUSH (09:06)
[2023-09-29] MEDS: 0.9 % Sodium Chloride Flush 3 ML SYRINGE IVFLUSH (09:07)
[2023-09-29] MEDS: Lidocaine 4 % Patch ADH..PATCH 2 PATCH TRANSDERMA (09:07)
[2023-09-29] MEDS: Potassium Chloride Packet 20 MEQ PACKET 40 MEQ PO (09:07)
[2023-09-29 09:13] LABS: Alanine Aminotransferase 24 U/L (0-40); Albumin Level 3.7 g/dL (3.5-5.0); Alkaline Phosphatase 88 U/L (39-117); Anion Gap 15 (12-20); Aspartate Amino Transferase 29 U/L (5-37); Bilirubin Total 0.4 mg/dL (0.0-1.0); Blood Urea Nitrogen 10 mg/dL (9-16); Calcium 9.1 mg/dL (8.4-10.2); Carbon Dioxide 24 mmol/L (22-29); Chloride 107 mmol/L (96-108); Creatinine Clr Calc Pharmacy 113.2; Estimated Glomerular Filt Rate > 60; Glucose Random 107 mg/dL (60-115); Magnesium 2.3 mg/dL (1.6-2.6); Phosphorus 2.3 mg/dL (2.7-4.5); Potassium 3.7 mmol/L (3.3-5.1); Sodium 142 mmol/L (135-145); Total Protein 6.9 g/dL (6.5-8.0)
[2023-09-29 09:42] VITALS: BP 121/80; PULSE 75; O2SAT 95
--- NOTE | 2023-09-29 10:44 | MHC.SL.SWA ---
Speech Pathologist Impression: Risk of Aspiration Due to: Hx of Recent Extubation Weak Cough Weak Voice Dysphasia Diet Status: Recommend UPGRADE diet to REGULAR, continue on THIN liquids, upgrade to pills whole with liquid. CROCHETER to f/u X1 to observe toleration of meal at this baseline/least restrictive level. Liquid Consistency and Strategies for Safe Swallow: Liquid Intake Recommendation: Thin Liquid Intake Strategies: Small Sips Solid Food Consistency: Dietary Recommendations: Regular Additional Modifications to Solid Foods: Oral Medication Intake: Whole with Liquid Please contact the pharmacy regarding appropriate crushable or liquid drug formulations that are available whenever modified delivery is recommended. Compensatory Strategies and Precautions to be Taken for Safe Swallow: Sitting Upright (90 deg) Liquids from Cup Liquids from Straw Small Bites and Sips Alternate Liquids/Solids Rate of Ingestion Change Supervision While Eating and Drinking for Safe Swallow: None Needed Foods to Avoid: Avoid MIXED textures, hard difficult to chew solids. Swallowing Recommended Treatments: Compens. Strategy Educat. Recommendation for Speech: Further Testing Needed Inpatient Speech Therapy Comment: Patient seen this a.m. for re-evaluation of swallow, possible upgrade. Patient presented as much improved from previous visits, this morning was seated in recliner in room, pleasant and interactive, noting that today is his birthday. Patient reported that he had asked for sandwiches over the weekend, and was keen to eat regular food (requested pork chops, burgers...). Patient stated that he was able to eat this type of regular food without difficulty despite lacking teeth or dentures. Patient was given a saltine to eat, with patient producing a normal rotary chew, mashing the texture with gums, swallowing most of the bolus in a timely way, and reaching for water to wash down residual. No evidence of s/s aspiration. Patient is also now able to feed self without difficulty. Recommend UPGRADE diet to REGULAR, continue on THIN liquids, upgrade to pills whole with liquid. CROCHETER to f/u X1 to observe toleration of meal at this baseline/least restrictive level. It was recommended to patient that he elect softer foods from the regular menu given his lack of teeth. MD, RD, RN notified of recommendation by secure text. Frequency/Duration: daily M-F Date Range for Service Req: Timeline to reassess: Clay Thrower Clinican/Clinical Fellow: No Supervisory Statement: I have reviewed and agree with the student/clinical fellow's documentation: N/A Speech Language Pathologist: Christal Canseco M.A., [facility]
--- NOTE | 2023-09-29 10:58 | HO.PM.IMPN ---
Subjective Subjective Date of Service: 09/29/23 Interval History: Continues to improve. No acute events overnight. Asking to restart Paxil Review of Systems Denies chest pain Denies shortness of breath Denies nausea vomiting diarrhea Denies fever chills Physical Exam Vital Signs: Vital Signs: Last Vital Signs Temp 97.2 F 09/29/23 08:00 Pulse 75 09/29/23 09:42 Resp 18 09/29/23 08:00 BP 121/80 09/29/23 09:42 Pulse Ox 95 09/29/23 09:42 O2 Del Method Room Air 09/29/23 08:00 O2 Flow Rate 2 09/25/23 01:00 FiO2 45 09/23/23 14:00 BMI result Body Mass Index 45.0 Const: Other: Awake alert mildly confused but easily reoriented Resp: Other: Clear to auscultation bilaterally no rales rhonchi or wheezes Cardio: Other: No S4; positive S1-S2; no S3 murmurs rubs gallops GI: Other: Soft nontender nondistended normoactive bowel sounds Extrem: Other: No edema bilaterally Objective Data Active Medications Artificial Tears (Artificial Tears 15 Ml Drops) 1 drop EYE-BOTH Q4H PRN PRN Reason: Dry Eyes Clonidine HCl (Clonidine Hcl 0.2 Mg Tablet) 0.2 mg PO BID [facility]; Protocol Last Admin: 09/29/23 09:06 Dose: 0.2 mg Documented By: BUCKY Divalproex Sodium (Divalproex Sodium Er 500 Mg Tab.Er.24h) 2,000 mg PO BEDTIME [facility] Enoxaparin Sodium (Enoxaparin Sodium 40 Mg/0.4 Ml Syringe) 40 mg SUBCUT Q24H [facility] Last Admin: 09/28/23 13:55 Dose: 40 mg Documented By: JACK Famotidine (Famotidine/Pf 20 Mg/2 Ml Vial) 20 mg IVPUSH DAILY [facility] Last Admin: 09/29/23 09:06 Dose: 20 mg Documented By: BUCKY Furosemide (Furosemide 20 Mg Tablet) 20 mg PO DAILY [facility]; Protocol Last Admin: 09/29/23 09:06 Dose: 20 mg Documented By: BUCKY Hydromorphone HCl (Hydromorphone Hcl 2 Mg/Ml Vial) 2 mg IVPUSH Q4H PRN; Protocol PRN Reason: Pain, Moderate(Pain Scale 4-6) Last Admin: 09/29/23 06:36 Dose: 2 mg Documented By: OLFA Hydroxyzine HCl (Hydroxyzine Hcl 50 Mg Tablet) 50 mg PO TID PRN PRN Reason: Anxiety Last Admin: 09/26/23 00:02 Dose: 50 mg Documented By: MIKEY Lactulose (Lactulose 20 Gm/30 Ml Solution) 30 gm PO BID PRN PRN Reason: Constipation Lidocaine (Lidocaine 4 % Patch Adh..Patch) 2 patch TRANSDERMA DAILY [facility]; Protocol Last Admin: 09/29/23 09:07 Dose: 2 patch Documented By: BUCKY Lorazepam (Lorazepam 0.5 Mg Tablet) 0.5 mg PO Q4H PRN PRN Reason: Anxiety Last Admin: 09/25/23 15:36 Dose: 0.5 mg Documented By: NUBIA Losartan Potassium (Losartan Potassium 50 Mg Tablet) 100 mg PO DAILY [facility]; Protocol Last Admin: 09/29/23 09:06 Dose: 100 mg Documented By: BUCKY Nystatin (Nystatin Powder 15 Gm Bottle) 1 appl TOPICAL BID [facility]; Protocol Last Admin: 09/29/23 09:08 Dose: Not Given Documented By: BUCKY Non-Admin Reason: Patient Refused Oxycodone HCl (Oxycodone Hcl Immed Release 5 Mg Tablet) 10 mg PO Q4H PRN PRN Reason: Pain, Moderate(Pain Scale 4-6) Last Admin: 09/29/23 09:06 Dose: 10 mg Documented By: BUCKY Paroxetine HCl (Paroxetine Hcl 20 Mg Tablet) 20 mg PO BEDTIME [facility] Pharmacy Consult (Consult Rx Etoh Phenob Im/Po) 1 each MISCELLANE ONCE PRN; Protocol PRN Reason: Consult order Pharmacy Consult (Consult Rx Etoh Phenob Im/Po) 1 each MISCELLANE ONCE PRN; Protocol PRN Reason: Consult order Pharmacy Consult (Consult Rx Vancomycin Dosing) 1 each MISCELLANE DAILY PRN PRN Reason: Consult order Potassium Chloride (Potassium Chloride Packet 20 Meq Packet) 40 meq PO DAILY [facility] Last Admin: 09/29/23 09:07 Dose: 40 meq Documented By: BUCKY Quetiapine Fumarate (Quetiapine Fumarate 25 Mg Tablet) 25 mg PO BEDTIME [facility] Last Admin: 09/28/23 20:21 Dose: 25 mg Documented By: OLAF Sodium Chloride (0.9 % Sodium Chloride Flush 3 Ml Syringe) 3 ml IVFLUSH QSHIFT [facility] Last Admin: 09/29/23 09:07 Dose: 3 ml Documented By: BUCKY Sodium Chloride (0.9 % Sodium Chloride Flush 10 Ml Syringe) 5 ml IVFLUSH TID [facility] Last Admin: 09/29/23 09:08 Dose: Not Given Documented By: BUCKY Non-Admin Reason: Duplicate Order Labs 09/29/23 07:58 09/29/23 07:58 Labs: Laboratory Results - last 24 hr 09/28/23 09/29/23 20:55 07:58 MCV 94.6 MCH 30.4 MCHC 32.1 RDW 14.6 Plt Count 507 H MPV 11.6 Immature Gran % (Auto) 1.4 H Neut % (Auto) 52.6 Lymph % (Auto) 29.5 [place] % (Auto) 12.4 H Eos % (Auto) 2.6 Baso % (Auto) 1.5 Lymph # (Auto) 2.4 [place] # (Auto) 1.0 Eos # (Auto) 0.2 Baso # (Auto) 0.1 Abs Immat Gran (auto) 0.11 H Absolute Neuts (auto) 4.2 Absolute Nucleated RBC 0.000 Nucleated RBC % (auto) 0.0 Anion Gap 15 Estim Creat Clear Calc 113.2 Estimated GFR > 60 Random Glucose 107 Calcium 9.1 D Phosphorus 2.3 L Magnesium 2.3 Total Bilirubin 0.4 AST 29 ALT 24 Alkaline Phosphatase 88 Total Protein 6.9 Albumin 3.7 Random Vancomycin 14.7 L Assessment and Plan (1) Alcohol withdrawal: Status: Acute Plan 67 year old male with PTSD, panic disorder, alcohol dependency here alcohol withdrawal requiring intubation and sedation. Successfully weaned off both and is now doing well with p.o. on floor 1.Alcohol withdrawal -continue to observe on CIWA scale... Markedly improved -currently maintained with Ativan p.r.n.... not utilize since 09/25/2023 -will ultimately need rehab 2. Likely aspiration -clinically asymptomatic without O2 requirement or white count -D/C empiric vanco and Zosyn 3.HTN -acceptable control on current therapies -adjust as indicated 4. Chronic obstructive pulmonary disease -stable and well compensated at this time Lovenox Full code Patient requires ongoing hospitalization to arrange safe disposition and continue to monitor on CIWA scale. High risk for outpatient failure Quality Stroke Does the patient have a stroke diagnosis?: No VTE Prior VTE?: No VTE Risk Level:: Medical - moderate - high VTE Device Contraindication: Treatment Not Indicated VTE Drug Contraindication: N/A - Med Ordered
[2023-09-29] MEDS: Enoxaparin Sodium 40 MG/0.4 ML SYRINGE SUBCUT (14:37)
--- NOTE | 2023-09-29 14:42 | MHC.CM.PN ---
physical therapy receommends str referrals made pt is dc ready per [facility] dc summary and passar .mds has been completed
[2023-09-29 15:03] VITALS: BP 108/68; PULSE 86; RESP 18; TEMP 36; O2SAT 95
[2023-09-29 19:04] VITALS: BP 124/72; PULSE 92; RESP 18; TEMP 36; O2SAT 94
[2023-09-29 21:10] VITALS: BP 124/72
[2023-09-29] MEDS: Divalproex Sodium ER 500 MG TAB.ER.24H 2000 MG PO (21:10)
[2023-09-29] MEDS: PARoxetine HCL 20 MG TABLET PO (21:10)
[2023-09-29] MEDS: QUEtiapine Fumarate 25 MG TABLET PO (21:11)
[2023-09-29] MEDS: Nystatin Powder 15 GM BOTTLE 1 APPL TOPICAL (22:18)
[2023-09-29] MEDS: 0.9 % Sodium Chloride Flush 10 ML SYRINGE 5 ML IVFLUSH (22:21)
[2023-09-30 03:15] VITALS: BP 170/71; PULSE 87; RESP 16; TEMP 36; O2SAT 98
[2023-09-30] MEDS: HYDROmorphone HCl 2 MG/ML VIAL IVPUSH ×3 (03:57→11:57)
[2023-09-30 06:54] VITALS: BP 137/66; PULSE 79; RESP 18; TEMP 36.4; O2SAT 96
[2023-09-30 07:17] LABS: Creatinine Clr Calc Pharmacy 123.2; Estimated Glomerular Filt Rate > 60
[2023-09-30] MEDS: Losartan Potassium 50 MG TABLET 100 MG PO (07:57)
[2023-09-30] MEDS: Furosemide 20 MG TABLET PO (07:57)
[2023-09-30] MEDS: Famotidine/PF 20 MG/2 ML VIAL IVPUSH (07:57)
[2023-09-30] MEDS: cloNIDine HCL 0.2 MG TABLET PO (07:57)
[2023-09-30] MEDS: Potassium Chloride Packet 20 MEQ PACKET 40 MEQ PO (07:58)
[2023-09-30] MEDS: 0.9 % Sodium Chloride Flush 10 ML SYRINGE 5 ML IVFLUSH (08:03)
--- NOTE | 2023-09-30 11:11 | P.DS_ITS ---
DS: Providers Provider Date of Service: 09/30/23 Date of admission: 09/14/23 13:30 Date of discharge: 09/30/23 Primary care physician: Kaz Enamorado MD Consults: 09/14/23 14:08 Addiction Medicine Routine Consulting Provider: Addiction Covering Reason for consultation: alcohol dependency 09/16/23 08:00 Consult to Wound Care Routine Reason for consultation: right granados skin tear 09/18/23 10:01 Consult to Cardiology Routine Consulting Provider: [facility] Reason for consultation: chf Has provider been notified: No DS: Diagnosis Discharge Diagnosis (1) Alcohol withdrawal: Status: Acute (2) Encephalopathy: Status: Acute (3) Acute respiratory failure with hypoxia: Status: Acute DS: Summary Hospital Course Hospital Course: 67 year old male with TBI, PTSD, panic disorder who drinks rather heavily up to 2 sleeve of fire balls a day. He was found on the floor at the [place] of his house, intoxiciated. He reports 5 days of insomnia, and reporting some abdominal pain. In the ED noted to be tachycardia, tremoulous and scoring greater than 15 on CIWA score. He was admitted to the general medical floor and continued to escalate from a withdrawal standpoint. This required additional medicines including Precedex and required intubation. He was empirically treated with antibiotics for possible aspiration. He was successfully weaned and transferred out to the floor. Over the course of the next several days he continued to improve. He was given IV diuresis for significant lower extremity edema which resolved with elevation as well. He was successfully switch to p.o. Lasix. Given the fact that he was afebrile and no white count his antibiotics were DC shortly after transfer to the floor. Was seen by Physical therapy and deemed a candidate for short-term rehab; his stay was prolonged by insurance issues. At this point in time his major issues are his PTSD and polysubstance abuse which he has essentially been cleared of at this time. At this point in time he is medically acceptable for transfer to rehab and to complete his rehab course. His stay will likely be less than 30 days Time Attestation Discharge Coordination Time (in mins): 35 Quality: Safe Use of Opioids Does Pt have an Active Cancer Diagnosis on the Problem List?: No Quality: Stroke Does the patient have a stroke diagnosis?: No Physical Exam Vital Signs: Vital Signs: Last Vital Signs Temp 97.6 F 09/30/23 06:54 Pulse 79 09/30/23 06:54 Resp 18 09/30/23 06:54 BP 137/66 09/30/23 06:54 Pulse Ox 96 09/30/23 06:54 O2 Del Method Room Air 09/30/23 06:54 O2 Flow Rate 2 09/25/23 01:00 FiO2 45 09/23/23 14:00 BMI result Body Mass Index 45.0 Const: Other: Awake alert mildly confused but easily reoriented Resp: Other: Clear to auscultation bilaterally no rales rhonchi or wheezes Cardio: Other: No S4; positive S1-S2; no S3 murmurs rubs gallops GI: Other: Soft nontender nondistended normoactive bowel sounds Extrem: Other: No edema bilaterally DS: Data Data Completed and Pending Labs on day of discharge: Laboratory Results - last 24 hr 09/30/23 05:37 Hold Purple Top SEE NOTE Creatinine 0.79 Estim Creat Clear Calc 123.2 Estimated GFR > 60 Discharge Plan Discharge Anticipated Discharge Date/Time: 09/30/23 10:58 Patient Disposition: Xfer Inpatient Rehab Fac Discharge Diagnosis: Acute alcohol withdrawal Referrals: Kaz Enamorado MD [Primary Care Provider] - 1 Week Discharge Medications: New losartan 50 mg Tablet 100 mg PO DAILY Qty: 30 0RF Protocol: Hold for SBP< HOLD for SBP < : 90 quetiapine 25 mg Tablet 25 mg PO BEDTIME Qty: 3 0RF clonidine HCl 0.2 mg Tablet 0.2 mg PO BID Qty: 60 0RF Protocol: Hold for SBP< HOLD for SBP < : 90 paroxetine HCl 20 mg Tablet 20 mg PO BEDTIME Qty: 30 0RF furosemide 20 mg Tablet 20 mg PO DAILY Qty: 30 0RF Protocol: Hold for SBP< HOLD for SBP < : 90 oxycodone 5 mg Tablet 10 mg PO Q4H PRN (Reason: Pain, Moderate(Pain Scale 4-6)) Qty: 30 0RF Rx Instructions: Partial Fill upon patient request. Continued multivitamin Tablet 1 tab PO DAILY sennosides [senna] 8.6 mg Tablet 17.2 mg PO BEDTIME thiamine HCl (vitamin B1) 100 mg Tablet 100 mg PO DAILY hydroxyzine HCl 50 mg Tablet 50 mg PO TID PRN (Reason: Anxiety) paroxetine HCl 20 mg Tablet 20 mg PO BEDTIME divalproex 500 mg Tablet Extended Release 24 Hr 2,000 mg PO BEDTIME fluticasone propion-salmeterol [Advair Diskus] 500-50 mcg/dose Blister With Device 1 inh INHALATION BID pyridoxine (vitamin B6) 50 mg Tablet 50 mg PO DAILY folic acid 1 mg Tablet 1 mg PO DAILY albuterol sulfate 90 mcg/actuation Hfa Aerosol Inhaler 2 puff INHALATION Q6H PRN (Reason: Shortness Of Breath Or Wheezing) buprenorphine-naloxone 8-2 mg Tablet, Sublingual 1 tab SUBLINGUAL TID mirtazapine 7.5 mg Tablet 7.5 mg PO BEDTIME melatonin 5 mg Tablet 5 mg PO BEDTIME PRN (Reason: Sleep) guaifenesin 600 mg Tablet Extended Release 12hr 600 mg PO BID Rx Instructions: with full glass of water naloxone 4 mg/actuation [place],Non-Aerosol 4 mg INTRANASAL Q3M PRN (Reason: Opioid Overdose) Rx Instructions: spray 1 dose into ONE nostril; alternate nostrils w each dose until help arrives tirzepatide 2.5 mg/0.5 mL Pen Injector 2.5 mg SUBCUT QWEEK Discontinued losartan 100 mg Tablet 100 mg PO DAILY Discharge Orders: Discharge Order (Routine); Ordered 09/30/23 Ordered By: Kevan Rodriguez Diet: Advance to usual diet Activity on Discharge: As tolerated Stand Alone Forms: Patient Portal Discharge page Print Language: Belarusian Care Plan Goals: Continue all medicine as outlined on transfer sheet Health Concerns: Further plans as per receiving facility Plan of Treatment: Physical therapy as ordered Assessment: See discharge summary
--- NOTE | 2023-09-30 11:38 | MHC.CM.PN ---
pt to transfer [facility] today at 1 pt will tell family when he gets settled message left for deborah ?[facility] booked for 1
--- NOTE | 2023-09-30 17:14 | PC.NURSE ---
Called @ 1400 by [facility]. Pt med list showed suboxone which was given on 09/18. Stated med is not available and needs to be removed from discharge paperwork. Notified MD Rodriguez. Changed DC to exclude suboxone and was faxed to [facility] @ aprox 15:30
== END 2023-09-30 13:17 | DRG 391 ==
LOC: HO.ED 09-14 11:32 → HO.EDOVER 09-14 13:49 → HO.IMC 09-14 17:50 → HO.ICU 09-18 14:58 → HO.S3 09-26 11:04
PROVIDERS: Internal Medicine Critical Care Medicine; Internal Medicine Pulmonary Disease; Physician Assistant; Registered Nurse Community Health; Admitting Provider Internal Medicine; Emergency Provider Internal Medicine; PCP Internal Medicine; Visit Provider Hospitalist
DX: K29.70 Gastritis, unspecified, without bleeding (principal); J96.01 Acute respiratory failure with hypoxia; Z68.42 Body mass index [BMI] 45.0-49.9, adult; F10.231 Alcohol dependence with withdrawal delirium; G93.40 Encephalopathy, unspecified; F17.210 Nicotine dependence, cigarettes, uncomplicated; F10.229 Alcohol dependence with intoxication, unspecified; Z66 Do not resuscitate; J44.9 Chronic obstructive pulmonary disease, unspecified; I11.9 Hypertensive heart disease without heart failure; F41.0 Panic disorder [episodic paroxysmal anxiety]; E83.42 Hypomagnesemia; E87.6 Hypokalemia; E66.01 Morbid (severe) obesity due to excess calories; F43.10 Post-traumatic stress disorder, unspecified; Z87.820 Personal history of traumatic brain injury; Y90.8 Blood alcohol level of 240 mg/100 ml or more; Z71.3 Dietary counseling and surveillance; Z71.6 Tobacco abuse counseling; Z79.51 Long term (current) use of inhaled steroids; Z79.899 Other long term (current) drug therapy
CPT/HCPCS: 36415; 36573; 36600; 70450; 71045; 71250; 74177; 80048; 80053; 80076; 80202; 80307; 82140; 82565; 82607; 82746; 82803; 83690; 83735; 83880; 84100; 84484; 85025; 85027; 86803; 92526; 92610; 93005; 93306; 93970; 94002; 94003; 94640; 97116; 97162; 97163; 99285; C1751; C1758; J0131; J1170; J1630; J1650; J1940; J2060; J2250; J2359; J2405; J2543; J2560; J2704; J2919; J3370; J3371; J3411; J3475; J3480; J7120; P9047; Q9957; Q9967

== ENCOUNTER → 2023-09-13 23:58 | Outpatient (BNV) | payer MEDICARE, MEDICAID, SELFPAY | PROVIDERS: Emergency Provider Internal Medicine; Visit Provider Internal Medicine Cardiovascular Disease | DX: R07.9 Chest pain, unspecified (principal); R00.0 Tachycardia, unspecified; R94.31 Abnormal electrocardiogram [ECG] [EKG] | CPT/HCPCS: 93010 ==

== ENCOUNTER → 2023-09-14 09:31 | Outpatient (BNV) | payer OTHER, MEDICAID, SELFPAY | PROVIDERS: Admitting Provider Internal Medicine; Emergency Provider Internal Medicine; Visit Provider Internal Medicine | DX: R07.9 Chest pain, unspecified (principal); I49.1 Atrial premature depolarization; R94.31 Abnormal electrocardiogram [ECG] [EKG] | CPT/HCPCS: 93010 ==

== ENCOUNTER 2023-09-14 13:30 | Outpatient (BNV) | payer OTHER, SELFPAY | END 2023-09-17 11:09 | PROVIDERS: Admitting Provider Internal Medicine; Emergency Provider Internal Medicine; PCP Internal Medicine; Visit Provider Internal Medicine | DX: I50.9 Heart failure, unspecified (principal) | CPT/HCPCS: 93010; 93306 ==

== ENCOUNTER 2023-09-14 13:30 | Outpatient (BNV) | payer OTHER, MEDICAID, SELFPAY | END 2023-09-23 16:48 | PROVIDERS: Admitting Provider Internal Medicine; Emergency Provider Internal Medicine; PCP Internal Medicine; Visit Provider Internal Medicine Cardiovascular Disease | DX: R94.31 Abnormal electrocardiogram [ECG] [EKG] (principal) | CPT/HCPCS: 93010 ==

== ENCOUNTER 2023-09-14 13:30 | Outpatient (BNV) | payer OTHER, MEDICARE, MEDICAID, SELFPAY | END 2023-09-22 10:20 | PROVIDERS: Admitting Provider Internal Medicine; Emergency Provider Internal Medicine; PCP Internal Medicine; Visit Provider Internal Medicine Cardiovascular Disease | DX: J96.01 Acute respiratory failure with hypoxia (principal); F10.931 Alcohol use, unspecified with withdrawal delirium | CPT/HCPCS: 93010 ==

== ENCOUNTER → 2023-09-14 13:30 | Outpatient (BNV) | payer OTHER, SELFPAY | PROVIDERS: Admitting Provider Internal Medicine; Emergency Provider Internal Medicine; PCP Internal Medicine; Visit Provider Internal Medicine | DX: F10.939 Alcohol use, unspecified with withdrawal, unspecified (principal); F10.929 Alcohol use, unspecified with intoxication, unspecified; R60.9 Edema, unspecified | CPT/HCPCS: 99223 ==

== ENCOUNTER → 2023-09-14 13:30 | Outpatient (BNV) | payer OTHER, SELFPAY | PROVIDERS: Admitting Provider Internal Medicine; Emergency Provider Internal Medicine; Visit Provider Internal Medicine | DX: F10.939 Alcohol use, unspecified with withdrawal, unspecified (principal); G93.40 Encephalopathy, unspecified; J96.01 Acute respiratory failure with hypoxia | CPT/HCPCS: 99223; 99231; 99232; 99233; 99239; 99499 ==

== ENCOUNTER → 2023-09-14 13:30 | Outpatient (BNV) | payer OTHER, SELFPAY | PROVIDERS: Admitting Provider Internal Medicine; Emergency Provider Internal Medicine; PCP Internal Medicine; Visit Provider Nurse Practitioner Family | DX: J96.01 Acute respiratory failure with hypoxia (principal); T17.900A Unspecified foreign body in respiratory tract, part unspecified causing asphyxiation, initial encounter; F10.939 Alcohol use, unspecified with withdrawal, unspecified | CPT/HCPCS: 99233; 99291; 99292; 99499 ==

== ENCOUNTER → 2023-09-14 13:30 | Outpatient (BNV) | payer OTHER, SELFPAY | PROVIDERS: Admitting Provider Internal Medicine; Emergency Provider Internal Medicine; PCP Internal Medicine; Visit Provider Internal Medicine Pulmonary Disease | DX: F10.931 Alcohol use, unspecified with withdrawal delirium (principal); J96.01 Acute respiratory failure with hypoxia; T17.900A Unspecified foreign body in respiratory tract, part unspecified causing asphyxiation, initial encounter | CPT/HCPCS: 31500; 99291 ==

== ENCOUNTER 2023-09-30 15:35 | Emergency (ER) | payer OTHER, SELFPAY ==
[2023-09-30 15:45] VITALS: BP 138/69; PULSE 92; RESP 16; TEMP 36.6; O2SAT 96; BMI 41.0
--- NOTE | 2023-09-30 16:20 | ED.GENADULT ---
HPI - General Adult General Chief complaint: General Medical Stated complaint: meds not in stock, from snf Time Seen by Provider: 09/30/23 16:20 Source: patient, EMS, RN notes reviewed and old records reviewed Mode of arrival: EMS Limitations: no limitations History of Present Illness ED Provider: TAMMI PABON PA-C HPI narrative: 68 year old male with pmhx significant for TBI, PTSD, panic disorder, and etoh abuse presents to the ED today via EMS from [facility] for medication check. Patient recently admitted to [facility] for acute etoh withdrawal. He was discharged to [facility] this morning for STR. Upon arrival at [facility], it was noted on his paperwork that patient was taking both Suboxone and Oxycodone. He was told that they do not do Suboxone at [facility] and as a result, he was transported back to [facility] ED today. Upon my questioning, patient states that he has taken Suboxone in the past however is not currently on this although it was listed on his discharge medication list. He tells me that he would like to be given IV dilaudid (as he was getting on admission) rather than oxycodone and does not understand why he was switched off of the dilaudid. He denies any physical concerns at present however expresses frustration regarding the situation. Related Data Home Medications ?Medication ?Instructions ?Recorded ?Confirmed albuterol sulfate 90 mcg/actuation 2 puff inhalation Q6H PRN 09/14/23 09/30/23 aerosol inhaler Shortness Of Breath Or Wheezing divalproex 500 mg tablet,extended 2,000 mg PO BEDTIME 09/14/23 09/30/23 release 24 hr fluticasone 500 mcg-salmeterol 50 1 inh inhalation BID 09/14/23 09/30/23 mcg/dose blistr powdr for inhalation (Advair Diskus) folic acid 1 mg tablet 1 mg PO DAILY 09/14/23 09/30/23 guaifenesin 600 mg tablet, 600 mg PO BID 09/14/23 09/30/23 extended release 12 hr hydroxyzine HCl 50 mg tablet 50 mg PO TID PRN Anxiety 09/14/23 09/30/23 melatonin 5 mg tablet 5 mg PO BEDTIME PRN Sleep 09/14/23 09/30/23 mirtazapine 7.5 mg tablet 7.5 mg PO BEDTIME 09/14/23 09/30/23 multivitamin 1 tab PO DAILY 09/14/23 09/30/23 naloxone 4 mg/actuation nasal spray 4 mg intranasal Q3M PRN Opioid 09/14/23 09/30/23 Overdose paroxetine HCl 20 mg tablet 20 mg PO BEDTIME 09/14/23 09/30/23 pyridoxine (vitamin B6) 50 mg 50 mg PO DAILY 09/14/23 09/30/23 tablet sennosides 8.6 mg tablet (senna) 17.2 mg PO BEDTIME 09/14/23 09/30/23 thiamine HCl (vitamin B1) 100 mg 100 mg PO DAILY 09/14/23 09/30/23 tablet tirzepatide 2.5 mg/0.5 mL 2.5 mg subcut QWEEK 09/14/23 09/30/23 subcutaneous pen injector losartan 50 mg tablet 50 mg PO DAILY 09/30/23 09/30/23 Previous Rx's ?Medication ?Instructions ?Recorded clonidine HCl 0.2 mg tablet 0.2 mg PO BID #60 tabs 09/30/23 furosemide 20 mg tablet 20 mg PO DAILY #30 tabs 09/30/23 oxycodone 5 mg tablet 10 mg (2 x 5 mg) PO Q4H PRN Pain, 09/30/23 Moderate(Pain Scale 4-6) #30 tabs quetiapine 25 mg tablet 25 mg PO BEDTIME #3 tabs 09/30/23 Allergies Allergy/AdvReac Type Severity Reaction Status Date / Time No Known Allergies Allergy Verified 09/30/23 15:52 Review of Systems Review of Systems: Constitutional: No fever, chills, fatigue, night sweats, weight changes ENT/Mouth: No ear pain, hearing loss, nasal congestion, sinus pain, rhinorrhea, sore throat Eyes: No eye pain, swelling, redness, vision changes, discharge Cardio: No chest pain, palpitations, CAREY, orthopnea, peripheral edema Pulm: No SOB, cough, sputum, wheezing, dyspnea, hemoptysis GI: No nausea, vomiting, hematemesis, abdominal pain, diarrhea, constipation, hematochezia, melena : No irregular bleeding, dysuria, frequency, urgency, hesitancy, hematuria, flank pain, urinary flow changes, urinary incontinence or retention MSK: No back pain, neck pain, joint pain, myalgias Skin: No lesions, rashes Neuro: No weakness, numbness, paresthesias, LOC, dizziness, headache Psych: No anxiety/panic, depression, SI/HI, AH/VH All other systems reviewed and are negative. [facility] Past Medical History Attestation statement: The following information was validated with the patient. Source: old records reviewed and nursing notes reviewed Medical History Panic disorder Traumatic brain injury ETOH abuse Social History Social History Household Members: None Housing: Condominium Do you presently have visiting nurse or other home services: No Alcohol intake: current Alcohol intake frequency: 3 or more drinks per day Alcohol type: hard liquor Comment: sitter at bedside Patient Tobacco Use Status: Current everyday Tobacco user Tobacco use type: Cigarette Cigarettes Per Day: 20 Use of substances other than those prescribed or required for medical reasons: No Advance Directives: No Advance Directives Information Provided: Yes Do you have a plan to hurt others: No Plan Physical Exam ED Vital Signs: Vital Signs - 24 hr 09/30/23 15:45 09/30/23 17:53 Temperature 97.8 F 97.8 F Pulse Rate 92 101 H Respiratory Rate 16 20 Blood Pressure 138/69 122/83 Pulse Oximetry 96 98 Oxygen Delivery Method Room Air Room Air BMI result Body Mass Index 41.0 vitals stable Const General: no acute distress Orientation/consciousness: patient oriented x3 Limitations: no limitations HENMT Head: Yes normal to inspection, Yes No palpable skull fracture present, Yes normocephalic and Yes atraumatic Eyes General: appearance normal, both eyes and all related structures Pupils: Equal, round and reactive pupils present Neck Neck: Yes normal visual inspection Resp Effort & Inspection: normal respiratory effort and able to speak in complete sentences Cardio Rate: regular rate Rhythm: regular rhythm GI Inspection: Yes normal to inspection Palpation (GI): Soft to palpation and nontender Skin General skin exam: no rashes or lesions noted Neuro Other: ambulating with steady gait assisted by walker General: patient oriented x3 Cranial nerves: Yes Equal, round and reactive pupils present Extrem General: Yes normal to inspection Course Course Course Narrative: 1732-- upon reviewing [facility], patient has been prescribed Suboxone since 2021, with the last prescription written on 08/25/2023. During his admission to [facility], it does not appear that he was receiving Suboxone NSAID was receiving IV Dilaudid along with oxycodone. I did review power and recovery superintendent note from 09/26/23 and there is no mention of patient's suboxone use. > I discussed case with Deb from case management who will reach out to both Dr. Rodriguez (discharging physician) along with [facility] to clarify the situation. > patient placed in physician observation pending CM/ disposition > p.r.n. oxycodone ordered at this time to prevent withdrawal. Medications Administered Discontinued Medications Generic Name Dose Route Start Last Admin Trade Name Freq PRN Reason Stop Dose Admin Oxycodone HCl 5 mg 09/30/23 17:31 09/30/23 17:48 Oxycodone Hcl Immed Release 5 Mg Tablet PO 09/30/23 17:32 5 mg ONCE ONE Administration Medical Decision Making Medical Decision Making [facility] Narrative: 68 year old male with pmhx significant for TBI, PTSD, panic disorder, and etoh abuse presents to the ED today via EMS from [facility] for medication check. Vital signs are stable. He is nontoxic appearing and in NAD. Tearful at times. Plan for discussion with both case management and hospitalist for disposition. I do not feel as though lab work/ further work up is warranted at this time. Differential Diagnosis Differential Diagnoses: The differential diagnosis associated with the presentation includes as above Independent Historian Clinical information obtained from an independent historian. History obtained from or confirmed by: EMS External Record Review External record reviewed: Inpatient record, Office record, Outpatient record, Prior outpatient labs, Prior outpatient radiology, Primary care record and Outside ED record Chronic Conditions Patient?s care impacted by: Other (opioid abuse, etoh abuse) Social Determinants Patient?s care significantly limited by Social Determinants of Health including: Other Social Determinant of Health Critical Care Time Critical Care Time Critical Care Time: No Discharge Plan Discharge Clinical Impression: Opioid abuse Patient Disposition: Still a Patient Prescriptions: No Action multivitamin Tablet 1 tab PO DAILY sennosides [senna] 8.6 mg Tablet 17.2 mg PO BEDTIME thiamine HCl (vitamin B1) 100 mg Tablet 100 mg PO DAILY hydroxyzine HCl 50 mg Tablet 50 mg PO TID PRN (Reason: Anxiety) paroxetine HCl 20 mg Tablet 20 mg PO BEDTIME divalproex 500 mg Tablet Extended Release 24 Hr 2,000 mg PO BEDTIME fluticasone propion-salmeterol [Advair Diskus] 500-50 mcg/dose Blister With Device 1 inh INHALATION BID pyridoxine (vitamin B6) 50 mg Tablet 50 mg PO DAILY folic acid 1 mg Tablet 1 mg PO DAILY albuterol sulfate 90 mcg/actuation Hfa Aerosol Inhaler 2 puff INHALATION Q6H PRN (Reason: Shortness Of Breath Or Wheezing) mirtazapine 7.5 mg Tablet 7.5 mg PO BEDTIME melatonin 5 mg Tablet 5 mg PO BEDTIME PRN (Reason: Sleep) guaifenesin 600 mg Tablet Extended Release 12hr 600 mg PO BID Rx Instructions: with full glass of water naloxone 4 mg/actuation [place],Non-Aerosol 4 mg INTRANASAL Q3M PRN (Reason: Opioid Overdose) Rx Instructions: spray 1 dose into ONE nostril; alternate nostrils w each dose until help arrives tirzepatide 2.5 mg/0.5 mL Pen Injector 2.5 mg SUBCUT QWEEK quetiapine 25 mg Tablet 25 mg PO BEDTIME Qty: 3 0RF clonidine HCl 0.2 mg Tablet 0.2 mg PO BID Qty: 60 0RF Protocol: Hold for SBP< HOLD for SBP < : 90 furosemide 20 mg Tablet 20 mg PO DAILY Qty: 30 0RF Protocol: Hold for SBP< HOLD for SBP < : 90 oxycodone 5 mg Tablet 10 mg PO Q4H PRN (Reason: Pain, Moderate(Pain Scale 4-6)) Qty: 30 0RF Rx Instructions: Partial Fill upon patient request. losartan 50 mg tablet 50 mg PO DAILY Protocol: Hold for SBP< HOLD for SBP < : 90 Print Language: Spanish
--- NOTE | 2023-09-30 16:35 | PC.NURSE ---
Provider to bedside for primary eval.
--- NOTE | 2023-09-30 16:37 | MHC.CM.ED ---
Received case management consult from Nina ALLISON. Patient was d/c'd from [facility] to [facility] today. Patient returned to [facility] ER because suboxone was listed on patient's medication list. Dr Rodriguez was contacted. Per Dr Rodriguez, d/c summary as correct. Return referral will be sent to [facility]. Continue to monitor for d/c needs.
--- NOTE | 2023-09-30 17:26 | PC.NURSE ---
Pt ambulatory to bathroom with walker steady gait.
[2023-09-30] MEDS: oxyCODONE HCl Immed Release 5 MG TABLET PO (17:48)
[2023-09-30 17:53] VITALS: BP 122/83; PULSE 101; RESP 20; TEMP 36.6; O2SAT 98
--- NOTE | 2023-09-30 18:11 | PC.NURSE ---
Case management consulted, pt to stay overnight. Pharmacy to reconcile meds. Aware of plan of care.
--- NOTE | 2023-09-30 18:34 | PHA.MEDREC ---
Pharmacy Consult ? Medication Reconciliation Pharmacy has completed the medication reconciliation. Patient came from [facility] today discharged from [facility] today. Pt states nurse told him upon arrival We don't do suboxone here, you're not gonna be happy but we need to send you back to where you came from Pt states he is not on suboxone. Utilized discharge package from 09-14-23 only change is Losartan 50 mg daily.
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
[2023-09-30] MEDS: oxyCODONE HCl Immed Release 5 MG TABLET 10 MG PO (22:12)
[2023-09-30] MEDS: QUEtiapine Fumarate 25 MG TABLET PO (22:12)
[2023-09-30] MEDS: Sennosides 8.6 MG TABLET 17.2 MG PO (22:12)
[2023-09-30] MEDS: Mirtazapine 7.5 MG TABLET PO (22:12)
[2023-09-30] MEDS: Divalproex Sodium ER 500 MG TAB.ER.24H 2000 MG PO (22:13)
[2023-09-30 22:14] VITALS: BP 175/81
[2023-09-30] MEDS: cloNIDine HCL 0.2 MG TABLET PO (22:14)
[2023-09-30] MEDS: PARoxetine HCL 20 MG TABLET PO (22:27)
[2023-09-30] MEDS: Melatonin 3 MG TABLET 6 MG PO (22:27)
[2023-10-01] VITALS (8 sets, daily range): BP systolic 135–175; BP diastolic 74–102; PULSE 62–107; RESP 16–18; TEMP 36.1–37.3; O2SAT 92–98
[2023-10-01] MEDS: oxyCODONE HCl Immed Release 5 MG TABLET 10 MG PO ×2 (01:55→07:23)
[2023-10-01] MEDS: hydrOXYzine HCL 50 MG TABLET PO ×2 (03:26→12:44)
[2023-10-01] MEDS: HYDROmorphone HCl 2 MG TABLET PO (05:04)
--- NOTE | 2023-10-01 05:15 | PC.NURSE ---
Addendum entered by Gabriel Richey RN 10/01/23 06:04: VOIDED APPROX 900ML YELLOW URINE IN URINAL OVERNIGHT...SITS AT BEDSIDE TO VOID WITH STEADY GAIT..CURRENTLY DOZING AFTER RECEIPT OF PO DILAUDID..NO COMPLAINTS Original Note: PATIENT RECEIVED FROM MAIN ER TO BED 5 OVERFLOW APPROX 7PM..AWAKE..ALERT..ORIENTED X3...FLAT AFFECT...C/O 10/10 BACK AND GENERALIZED PAIN...PHARMACY COMPLETED MED RE AND PROVIDER REORDERED MEDS...OXYCODONE 10MG PO GIVEN BY RESOURCE RN AT APPROX 10PM AND 2AM FOR C/O BACK AND GENERALIZED PAIN WITH TRANSIENT EFFECT...REVIEWED PAIN MEDS PRIOR TO DISCHARGE 09/30/23 AND CURRENT PAIN MED THERAPY WITH ER/PROVIDER...DILAUDID 2MG PO X1 DOSE ORDERED BY PROVIDER AND GIVEN 05:04...TO MONITOR RESPONSE/EFFECTIVENESS
[2023-10-01] MEDS: Losartan Potassium 50 MG TABLET PO (07:23)
[2023-10-01] MEDS: Pyridoxine HCl (Vitamin B6) 50 MG TABLET PO (07:23)
[2023-10-01] MEDS: Thiamine HCL 100 MG TABLET PO (07:24)
[2023-10-01] MEDS: Fluticasone/Vilanterol 200/25 BLST.W.DEV 1 PUFF INHALE (07:24)
[2023-10-01] MEDS: Folic Acid 1 MG TABLET PO (07:24)
[2023-10-01] MEDS: Multivitamin TABLET 1 TAB PO (07:24)
--- NOTE | 2023-10-01 07:27 | PC.NURSE ---
Alert and oriented, medicated per mar for complaints of back pain. Refused lasisks depiste multiple attempts stating that he doesn't want to have to keep peeing. Offered urinal- patient declined stating he does not want lasiks and this time
[2023-10-01] MEDS: cloNIDine HCL 0.2 MG TABLET PO ×2 (07:52→21:07)
--- NOTE | 2023-10-01 10:43 | MHC.RECOVRN ---
Met with pt in Overflow 5 after consult placed to Addiction Medicine for opioid use. Pt had presented to the ED from [facility] on 09/30. Pt had been discharged to the [facility] earlier in the day. Per triage note, nurse at [facility] informed pt We don't do suboxone here, you're not gonna be happy but we need to send you back to where you came from. Pt informed triage he is not currently on Suboxone. Pt laying in bed, asleep, wakes to touch. Pt reports he had [facility]x [facility] years. Pt reports he does have an OUD, had been using heroin/fentanyl, unsure of when last use was. Of note, on initial presentation to the ED on 09/13, pts UDS positive for buprenorphine and barbituates. Per [facility], pts last Suboxone script was filled on 09/03, 21 tabs for a 7 day supply. Pt last received Suboxone at [facility] on 09/18 at 8:34PM. Pt was intubated on 09/19, extubated on 09/22. Suboxone had not been restarted. Plan was for pt to dc to [facility] on 09/30. On d/c summary, it was stated Suboxone was to be continued. On d/c packet, it was stated that Suboxone was discontinued. Currently, pt is ordered oxycodone 5 mg q6 hours prn and 10 mg q4 hours prn. Pt reports oxycodone doesn't do anything and would like to be back on Suboxone. Pt reports that if he were to be stabilized on Suboxone he would be agreeable to a different STR. Pt denies questions or concerns at this time. Discussed with Pippa French APRN.
--- NOTE | 2023-10-01 11:30 | HO.ADDICT_ITS ---
History of Present Illness Date of Service: 10/01/23 Chief Complaint: meds not in stock, from snf Reason for Consult: restart suboxone Sources of Information: patient interviewed and chart reviewed HPI Narrative: Patient is a 68 year old male who was discharged from [facility] on 09/29 to [facility] and sent back from [facility] facility reportedly due to being prescribed Suboxone. History obtained via chart review and from commercial relationship manager. Prior to admission at [facility] at the end of August, patient was prescribed Suboxone 8mg TID. Suboxone discontinued on 09/19. He was ordered oxycodone 10mg and Dilaudid 2mg PRN which was administered with regularity up until 09/29. This morning he received Dilaudid 2mg at 5am and Oxycodone 10mg at 7:30am Seen by this quality analyst/technical writer at 11am.At this time patient was asleep soundly and required loud voice to wake. Immediately upon wakening he asked for pain medication, he was reminded that he received medication earlier in the morning. Patient stating he was not given medication at all today. Of note, he did not appear uncomfortable and was somewhat drowsy. When asked about transitioning back to suboxone he verbalized agreement, I don't really have a choice do I? . This quality analyst/technical writer explained process, including discontinuation of oxycodone. Patient agreeable Review of Systems Constitutional: Reports as per HPI Diagnostics Vital Signs (24Hr): Vital Signs - 24 hr 09/30/23 15:45 09/30/23 17:53 09/30/23 22:14 Temperature 97.8 F 97.8 F Pulse Rate 92 101 H Respiratory Rate 16 20 Blood Pressure 138/69 122/83 175/81 H Pulse Oximetry 96 98 Oxygen Delivery Method Room Air Room Air 10/01/23 00:00 10/01/23 01:51 10/01/23 05:25 Temperature 96.9 F Pulse Rate 107 H Respiratory Rate 18 18 18 Blood Pressure 175/81 H 143/102 H 156/74 H Pulse Oximetry 94 97 96 Oxygen Delivery Method Room Air Room Air Room Air 10/01/23 07:39 Temperature 98.6 F Pulse Rate 97 Respiratory Rate 18 Blood Pressure 159/79 H Pulse Oximetry 98 Oxygen Delivery Method Room Air BMI result Body Mass Index 41.0 Mental Status Exam Mental Status Exam Level of Consciousness: Drowsy Patient Behavior: Guarded Medications Medications Current Medications Albuterol Sulfate (Albuterol Sulfate 90 Mcg 8 Gm Inhaler) 2 puff INHALE Q6H PRN PRN Reason: Shortness Of Breath Or Wheezing Clonidine HCl (Clonidine Hcl 0.2 Mg Tablet) 0.2 mg PO BID [facility]; Protocol Last Admin: 10/01/23 07:52 Dose: 0.2 mg Divalproex Sodium (Divalproex Sodium Er 500 Mg Tab.Er.24h) 2,000 mg PO BEDTIME [facility] Last Admin: 09/30/23 22:13 Dose: 2,000 mg Fluticasone/Vilanterol (Fluticasone/Vilanterol 200/25 Blst.W.Dev) 1 puff INHALE RDAILY [facility] Last Admin: 10/01/23 07:24 Dose: 1 puff Folic Acid (Folic Acid 1 Mg Tablet) 1 mg PO DAILY [facility] Last Admin: 10/01/23 07:24 Dose: 1 mg Furosemide (Furosemide 20 Mg Tablet) 20 mg PO DAILY [facility]; Protocol Last Admin: 10/01/23 07:24 Dose: Not Given Guaifenesin (Guaifenesin La 600 Mg Tab.Er.12h) 600 mg PO BID [facility] Last Admin: 10/01/23 07:54 Dose: Not Given Hydroxyzine HCl (Hydroxyzine Hcl 50 Mg Tablet) 50 mg PO TID PRN PRN Reason: Anxiety Last Admin: 10/01/23 03:26 Dose: 50 mg Losartan Potassium (Losartan Potassium 50 Mg Tablet) 50 mg PO DAILY [facility]; Protocol Last Admin: 10/01/23 07:23 Dose: 50 mg Melatonin (Melatonin 3 Mg Tablet) 6 mg PO BEDTIME PRN PRN Reason: Sleep Last Admin: 09/30/23 22:27 Dose: 6 mg Mirtazapine (Mirtazapine 7.5 Mg Tablet) 7.5 mg PO BEDTIME [facility] Last Admin: 09/30/23 22:12 Dose: 7.5 mg Multivitamins/Vitamin C (Multivitamin Tablet) 1 tab PO DAILY [facility] Last Admin: 10/01/23 07:24 Dose: 1 tab Naloxone HCl (Naloxone Hcl Nasal 4 Mg [place]) 4 mg NOSTRILALT Q3M PRN PRN Reason: Opioid Overdose Non-Formulary Medication (Tirzepatide) 2.5 mg SUBCUT Q7D [facility] Oxycodone HCl (Oxycodone Hcl Immed Release 5 Mg Tablet) 5 mg PO Q6H PRN PRN Reason: Pain, Moderate(Pain Scale 4-6) Oxycodone HCl (Oxycodone Hcl Immed Release 5 Mg Tablet) 10 mg PO Q4H PRN PRN Reason: Pain, Moderate(Pain Scale 4-6) Last Admin: 10/01/23 07:23 Dose: 10 mg Paroxetine HCl (Paroxetine Hcl 20 Mg Tablet) 20 mg PO BEDTIME [facility] Last Admin: 09/30/23 22:27 Dose: 20 mg Pyridoxine HCl (Pyridoxine Hcl (Vitamin B6) 50 Mg Tablet) 50 mg PO DAILY [facility] Last Admin: 10/01/23 07:23 Dose: 50 mg Quetiapine Fumarate (Quetiapine Fumarate 25 Mg Tablet) 25 mg PO BEDTIME [facility] Last Admin: 09/30/23 22:12 Dose: 25 mg Senna (Sennosides 8.6 Mg Tablet) 17.2 mg PO BEDTIME [facility] Last Admin: 09/30/23 22:12 Dose: 17.2 mg Thiamine HCl (Thiamine Hcl 100 Mg Tablet) 100 mg PO DAILY [facility] Last Admin: 10/01/23 07:24 Dose: 100 mg Allergies Allergies Allergy/AdvReac Type Severity Reaction Status Date / Time No Known Allergies Allergy Verified 09/30/23 15:52 Assessment & Plan Assessment & Plan (1) Opioid use disorder: Status: Acute Code(s): F11.90 - Opioid use, unspecified, uncomplicated Assessment and Plan: * discussed with patient-reports that he wishes to resume buprenorphine as previously ordered (8mg TID). Advised of need to d/c current pain medications. Patient agreeable, however believes he has not recived any medications today (MAR shows Dilaudid 2mg @ 0504 and oxycodone 10mg @ 0723) * d/c current PRN oxycodone orders * restart buprenorphine later this afternoon once patient is displaying signs of opiate withdrawal--patient presents as poor historian and will likely be requesting medications repeatedly despite having already recieved them, * utilize comfort medications in the interim to address anxiety and or restless as noted Total time managing care of this patient today __60__ minutes. PMFSH Past Medical History Medical History Panic disorder Traumatic brain injury ETOH abuse Social History Social History Household Members: None Housing: Condominium Do you presently have visiting nurse or other home services: No Alcohol intake: current Alcohol intake frequency: 3 or more drinks per day Alcohol type: hard liquor Comment: sitter at bedside Patient Tobacco Use Status: Current everyday Tobacco user Tobacco use type: Cigarette Cigarettes Per Day: 20 Use of substances other than those prescribed or required for medical reasons: No Advance Directives: No Advance Directives Information Provided: Yes Do you have a plan to hurt others: No Plan
--- NOTE | 2023-10-01 12:49 | PC.NURSE ---
Patient ringing call [facility] asking for prn oxycodone. Patient reminded that he spoke with recovery and provider and stated that he wanted to go back on the Suboxone and was aware that oxyconde would be stopped and suboxone would start once he starts having withdrawl symptoms.Message sent to recovery about suboxone and prn orders for pain medication. Message also sent to [facility]. Patient able to be redirected for short periods of time however agitated stating he changes his mind about wanting suboxone that he wants oxycodone. Provider aware
[2023-10-01] MEDS: Ketorolac Tromethamine 60 MG/2 ML VIAL IM (13:22)
[2023-10-01] MEDS: Ondansetron ODT 4 MG TAB.RAPDIS TRANSLINGU (13:23)
--- NOTE | 2023-10-01 16:47 | PC.NURSE ---
Awoke from nap requesting suboxone stating he is in withdrawl, message sent to recovery.
[2023-10-01] MEDS: Buprenorphine/Naloxone 4/1 mg FILM 1 FILM SUBLINGUAL ×3 (16:59→21:17)
--- NOTE | 2023-10-01 17:33 | PC.NURSE ---
Medicated per mar, patient reports needs 8mg of subxone not 4mg, provider aware with additional dosing to be ordered
[2023-10-01] MEDS: Divalproex Sodium ER 500 MG TAB.ER.24H 2000 MG PO (21:08)
[2023-10-01] MEDS: QUEtiapine Fumarate 25 MG TABLET PO (21:08)
[2023-10-01] MEDS: PARoxetine HCL 20 MG TABLET PO (21:08)
[2023-10-01] MEDS: guaiFENesin LA 600 MG TAB.ER.12H PO (21:08)
[2023-10-01] MEDS: Sennosides 8.6 MG TABLET 17.2 MG PO (21:08)
[2023-10-01] MEDS: Mirtazapine 7.5 MG TABLET PO (21:09)
--- NOTE | 2023-10-01 22:30 | PC.NURSE ---
pt upset about his suboxone, he states, I get the 4/1mg three times a day and I get the 8/2mg at night. Pt had received the 4/1mg at 165, and 1831, he wanted the 8/2mg at 2099. Tried to explain to the patient, that he did not have the 8/2g ordered for tonight, it would start in the morning and he would get it Twice a day. Pt states, that is not the way, it is supposed to be Pt is very irrated, that he can not have his medicine, the way he wants it. Pt was mediicated, with th Suboxone 4/1mg as a PRN dose for tonight at 2116. Pt is now resting queitly in, the bed, with the lights off, resp with ease, will cont to monae pt
[2023-10-02] VITALS: BP 112/57; PULSE 104; RESP 16; TEMP 36.6; O2SAT 92
[2023-10-02] MEDS: Acetaminophen 325 MG TABLET 650 MG PO (01:03)
[2023-10-02] MEDS: Melatonin 3 MG TABLET 6 MG PO (01:04)
[2023-10-02] MEDS: Ketorolac Tromethamine 30 MG/ML VIAL IM (01:05)
[2023-10-02 04:00] VITALS: BP 110/67; PULSE 71; PULSE 81; RESP 16; TEMP 36.4; O2SAT 93
[2023-10-02 07:44] VITALS: PULSE 70; RESP 16; O2SAT 94
[2023-10-02] MEDS: Fluticasone/Vilanterol 200/25 BLST.W.DEV 1 PUFF INHALE (07:44)
[2023-10-02] MEDS: Multivitamin TABLET 1 TAB PO (08:02)
[2023-10-02] MEDS: Pyridoxine HCl (Vitamin B6) 50 MG TABLET PO (08:02)
[2023-10-02] MEDS: Furosemide 20 MG TABLET PO (08:02)
[2023-10-02] MEDS: Losartan Potassium 50 MG TABLET PO (08:02)
[2023-10-02] MEDS: hydrOXYzine HCL 50 MG TABLET PO (08:02)
[2023-10-02] MEDS: Folic Acid 1 MG TABLET PO (08:02)
[2023-10-02] MEDS: cloNIDine HCL 0.2 MG TABLET PO (08:02)
[2023-10-02] MEDS: Thiamine HCL 100 MG TABLET PO (08:02)
[2023-10-02] MEDS: Buprenorphine/Naloxone 8/2 mg FILM 1 FILM SUBLINGUAL (08:03)
--- NOTE | 2023-10-02 08:07 | PC.NURSE ---
called pharmacy for missing med
--- NOTE | 2023-10-02 08:07 | PC.NURSE ---
patient a&ox3, lungs clear- rr equal/non labored, pt ambulating with wheeled walker/steady gait with walker, pt medicated with am meds- called pharmacy for missing meds. pt also stating his suboxone is supposed to be 8/ TID which is ordered BID with a 4 of PRN. will speak with provider as he is wanting this changed. Provider in the ED notified of the patients request. Additionally, pharmacy called for missing med.
[2023-10-02] MEDS: guaiFENesin LA 600 MG TAB.ER.12H PO (08:16)
[2023-10-02 08:36] VITALS: BP 195/88; PULSE 70; RESP 18; TEMP 36.9; O2SAT 97
--- NOTE | 2023-10-02 08:36 | MHC.CM.ED ---
Patient remains in ER overflow. Has started Suboxone. Patient does not feel he is on the right dose of Suboxone. Will not be able to find STR when withdrawal symptoms are under control. Continue to monitor for d/c needs.
--- NOTE | 2023-10-02 09:57 | PC.NURSE ---
[facility] manager Antoni Higgins [phone] is his field nurse case manager pt lives at [facility] at [address] in an apartment/independent living. health center manager is stating he is unsure if he is able to live there independently as he needs to remain sober which he has been unable to do. will pass this info on to case management
--- NOTE | 2023-10-02 10:50 | MHC.CM.ED ---
Addendum entered by Anjali Hoffmann 10/02/23 12:55: Received telephone call from Digna Carr, manager social for [facility] [employer]. She can be reached via telephone at [phone] ext [phone]. She is willing to take calls from the VNA for patient so VNA services can be arranged. [facility] is able to accept patient. Original Note: Patient remains in ER overflow. Now declining STR. Wants to return home with outpatient Suboxone. T/W spoke with patient's [facility] wrapper caser, Antoni Higgins via telephone at [phone]. If patient returns home without going to STR, landlord will start eviction process due to patient's multiple violations. Antoni has told patient this but patient has been in denial. Aracely MAK provided patient will this info. Patient continues to want to return home and does not feel landlord will evict patient. Antoni aware of this. [facility] will not be able to transport patient home because they don't feel it is safe. Attempted to find VNA for patient. However patient lost his cell phone and VNA will not be able to contact him. Patient has suboxone at home and will make a follow up appointment with Dr Patel. Patient, Aracely MAK and Aurea ALLISON aware. Continue to monitor for d/c needs.
[2023-10-02 12:33] VITALS: BP 128/95; PULSE 70; RESP 18; TEMP 36.9; O2SAT 97
--- NOTE | 2023-10-02 14:08 | MHC.RECOVRN ---
Met with pt this morning prior to discharge. Asleep, easily wakes to voice, appears comfortable. Pt reports positive effect with Suboxone, feels much better than yesterday. Pt requesting to return to TID dosing. Pippa French APRN, aware.
== END 2023-10-02 12:35 | disposition home or self-care (01) ==
PROVIDERS: Emergency Provider Emergency Medicine Emergency Medical Services; PCP Internal Medicine
DX: F11.23 Opioid dependence with withdrawal (principal); F10.10 Alcohol abuse, uncomplicated; Y90.9 Presence of alcohol in blood, level not specified; Z79.899 Other long term (current) drug therapy; Z71.51 Drug abuse counseling and surveillance of drug abuser
CPT/HCPCS: 96372; 99285; J1885

== ENCOUNTER → 2023-09-30 15:59 | Outpatient (BNV) | payer OTHER, MEDICARE, MEDICAID, SELFPAY | PROVIDERS: Emergency Provider Emergency Medicine Emergency Medical Services; Visit Provider Nurse Practitioner Psychiatric/Mental Health | DX: F11.90 Opioid use, unspecified, uncomplicated (principal) | CPT/HCPCS: 99282 ==

== ENCOUNTER 2025-01-19 10:50 | Emergency (ER) | payer OTHER, SELFPAY ==
--- NOTE | ~2025-01-19 | CT_ITS ---
EXAMINATION: CT ABDOMEN PELVIS WITH IV CONTRAST HISTORY: left side distension with pain COMPARISON: Comparison is made with the prior examination dated 09/14/2023. TECHNIQUE: CT scan of the abdomen and pelvis was performed following administration of 85 mL Omnipaque 350 using standard departmental protocol. Coronal and sagittal reformatted images were generated and reviewed. Oral contrast material was not administered at the request of the referring physician. This CT exam was performed with one or more of the following dose reduction techniques: automated exposure control, adjustment of the mA and/or kV according to patient size, use of iterative reconstruction technique. DLP: 1838 mGy-cm FINDINGS: LOWER CHEST: The visualized lung bases are clear. There is no pleural effusion. CARDIOVASCULATURE: The heart is normal in size. There is no pericardial effusion. LIVER: The liver is normal in size and contour, but demonstrates markedly decreased attenuation, consistent with steatosis. No liver mass is identified. The hepatic and portal veins are patent. GALLBLADDER / BILE DUCTS: The gallbladder is unremarkable. There is no intra or extrahepatic biliary ductal dilatation. SPLEEN: The spleen is normal in size. No focal splenic lesion is identified. PANCREAS: There is marked pancreatic parenchymal atrophy. There is a 1.1 cm nodule in the pancreatic tail was not present previously. ADRENAL GLANDS: Within normal limits. KIDNEYS/RETROPERITONEUM: No renal calculi are identified. There is no hydronephrosis. No renal masses are identified. LYMPH NODES: No abdominal or pelvic lymphadenopathy. VASCULATURE: The abdominal aorta is normal in caliber. MESENTERY/PERITONEUM: No free fluid. No masses. There is no free intraperitoneal gas. STOMACH: The stomach is collapsed, limiting evaluation. SMALL BOWEL: The small bowel is normal in caliber. COLON: The colon is unremarkable. APPENDIX: Normal. URINARY BLADDER/PELVIC ORGANS: The urinary bladder is collapsed, limiting evaluation. The prostate is normal in size. BONES / SOFT TISSUES: There is a hyperdense left rectus sheath hematoma measuring 17.4 x 5.4 x 10.7 cm. There is degenerative disc disease of the spine. CT/CT abdomen pelvis w IV con IMPRESSION: 1. Large left rectus sheath hematoma as described. 2. Hepatic steatosis. 3. 1.1 cm nodule in the pancreatic tail. Nonemergent MRI of the pancreas is recommended. Electronically signed by: Dino Gold MD 01/19/2025 01:33 PM TIFFANIE
--- NOTE | ~2025-01-19 | CT_ITS ---
EXAMINATION: CT ANGIOGRAM ABDOMEN AND PELVIS CLINICAL INFORMATION: Left rectus sheath hematoma. COMPARISON: January 19, 2025. TECHNIQUE: Multiple axial images were obtained through the abdomen and pelvis following the administration of 80 mL of Omnipaque 350 intravenous contrast during the arterial phase. Images were reviewed on a dedicated 3-D workstation. This CT examination was performed using dose optimization techniques as appropriate, variously including the following: *Automated exposure control *Adjustment of mA and/or kV according to patient size (this includes techniques or standardized protocols for targeted exams where dose is matched to indication/reason for exam; i.e. extremities or head) *Use of iterative reconstruction technique DLP: 845 mGy-cm FINDINGS: No overt arterial IV contrast extravasation into the hematoma. The hematoma measures 7 x 19 x 10 cm in maximum AP, transverse and intraconal dimension respectively. The hematoma composition is heterogeneous with mixed hyperdense and low density components. There is no fluid/fluid level. The hematoma is contained within the left abdominal rectus muscle without extending into the properitoneal fat or the deep fat planes. No hemoperitoneum. No retroperitoneal hematoma. The abdominal aorta demonstrates mixed plaques without aneurysm or dissection or IV contrast extravasation. The celiac trunk, superior mesenteric artery, inferior mesenteric artery and main renal arteries are patent. The common iliac arteries, internal and external iliac arteries are patent without IV contrast extravasation or aneurysm nor dissection. Vicarious contrast media excretion of the gallbladder . IV contrast in the urinary collecting system. Hepatomegaly and steatosis. Pancreatic lipomatosis with a focal 9 mm hyperdensity/body tail junction. No hydronephrosis in either kidney. No gross change in the appearance of the intra-abdominal organs or vascular structures. Multilevel thoracolumbar spondylosis and levoconvex rotoscoliosis of the lumbar spine with the fused T7-T8-9 vertebra. Degenerative changes in the coxofemoral joints and sacroiliac joints. CT/CT angio abdomen pelvis IMPRESSION: No active IV contrast/arterial bleed. Slightly larger hematoma, left abdominal rectus muscle. Fleischner guidelines were followed. Electronically signed by: Alex Maradiaga MD 01/20/2025 08:50 AM EST
[2025-01-19 11:08] VITALS: BP 149/82; PULSE 97; O2SAT 97
--- NOTE | 2025-01-19 11:12 | ED.GENADULT ---
HPI - General Adult General Chief complaint: General Medical Stated complaint: etoh abd pain Time Seen by Provider: 01/19/25 11:09 Source: patient Mode of arrival: ambulatory Limitations: no limitations History of Present Illness ED Provider: Dr. Ferreira HPI narrative: 69-year-old male history of alcohol use disorder presented hospital today for evaluation of left-sided abdominal pain. Patient is evaluated in sources for detox for alcohol. Patient is complaining of left upper quadrant pain. He stated that he has not used the bathroom for the past He stated that in the past he went to rehab and had success with it. Unfortunately he relapsed due to mental health issues. He stated that he is a [place] war vet and he is is going through a lot of vision in his mind. Patient denies any fever denies any nausea or vomiting denies any diarrhea. He does have some distention over the left upper quadrant area. Related Data Home Medications ?Medication ?Instructions ?Recorded ?Confirmed albuterol sulfate 90 mcg/actuation 2 puff inhalation Q6H PRN 09/14/23 01/19/25 aerosol inhaler Shortness Of Breath Or Wheezing divalproex 500 mg tablet,extended 2,000 mg PO BEDTIME 09/14/23 01/19/25 release 24 hr fluticasone 500 mcg-salmeterol 50 1 inh inhalation BID 09/14/23 01/19/25 mcg/dose blistr powdr for inhalation (Advair Diskus) hydroxyzine HCl 50 mg tablet 100 mg PO TID PRN Anxiety 09/14/23 01/20/25 melatonin 5 mg tablet 5 mg PO BEDTIME PRN Sleep 09/14/23 01/19/25 mirtazapine 7.5 mg tablet 7.5 mg PO BEDTIME 09/14/23 01/19/25 multivitamin 1 tab PO DAILY 09/14/23 01/19/25 paroxetine HCl 20 mg tablet 20 mg PO BEDTIME 09/14/23 01/19/25 pyridoxine (vitamin B6) 50 mg 50 mg PO DAILY 09/14/23 01/19/25 tablet thiamine HCl (vitamin B1) 100 mg 100 mg PO DAILY 09/14/23 01/19/25 tablet losartan 50 mg tablet 50 mg PO DAILY 09/30/23 01/19/25 buprenorphine 8 mg-naloxone 2 mg 1 film TID 01/19/25 01/19/25 sublingual film (Suboxone) lorazepam 1 mg tablet 1 mg PO BEDTIME PRN Anxiety 01/20/25 01/20/25 Previous Rx's ?Medication ?Instructions ?Recorded clonidine HCl 0.2 mg tablet 0.2 mg PO BID #60 tabs 09/30/23 quetiapine 25 mg tablet 25 mg PO BEDTIME #3 tabs 09/30/23 Allergies Allergy/AdvReac Type Severity Reaction Status Date / Time No Known Allergies Allergy Verified 01/19/25 11:23 Review of Systems Review of Systems: Pertinent review of systems as mentioned in HPI. All other system otherwise negative. [facility] Past Medical History [facility] Narrative: Medical history as mentioned in HPI Medical History Panic disorder Traumatic brain injury ETOH abuse Social History Social History Household Members: None Housing: Condominium Do you presently have visiting nurse or other home services: No Alcohol intake: current Alcohol intake frequency: 3 or more drinks per day Alcohol type: hard liquor Comment: sitter at bedside Patient Tobacco Use Status: Current everyday Tobacco user Tobacco use type: Cigarette Cigarettes Per Day: 20 Substance Use Type: Marijuana Physical Exam ED Exam Exam: General: Pleasant, no distress, interacting appropriately Head: Normacephalic, atraumatic ENT: oral mucosa moist, neck supple, no tracheal deviation Cardiovascular: regular rate, regular rhythm, no murmurs, rubbing, gallops Respiratory: Slight expiratory wheeze bilaterally Gastrointestinal: Tenderness over the epigastric left upper quadrant area. This is some distention and palpable mass on exam. Neurological: Awake and alert, no facial droop noted Skin: Warm and dry Psychiatric: Appropriate mood and thoughts Vital Signs: Vital Signs - 24 hr 01/21/25 16:20 Temperature 98.1 F Pulse Rate 89 Respiratory Rate 18 Blood Pressure 122/72 Pulse Oximetry 93 Oxygen Delivery Method Room Air BMI result Body Mass Index 41.0 Course Reevaluation(s) Reevaluation #1: 11:13 PM 01/19/2025 (Dr. Andrew Hidalgo): I was made aware of this case at this time, nursing brought to my attention that [facility] had [facility] there for [facility] detox. After reviewing the medical workup the physician there called here and spoke to the nurse and expressed concern and wanted us to re-evaluate this. I quickly reviewed the patient's ED workup which included labs and read the documentation. The patient came in with the abdominal pain also requested alcohol detox services. Vitals were stable blood work was reassuring with normal CBC, hemoglobin 14.2, stable vital signs and mild transaminitis. CT showed a rectus sheath hematoma. I will examined the patient do a bedside ultrasound of this rectus sheath hematoma, consider repeat CT with angiography or contrast to evaluate for fresh bleeding in his rectus sheath get coag studies and repeat CBC. ___ 12:04 AM 01/20/2025 (Dr. Andrew Hidalgo): Repeat hemoglobin with subtle drop no fluids has been administered. 14.4 hemoglobin to 13 over approximately 12 hours. I discussed with the marketing technology specialist to try to coordinate a repeated CT with angiography to evaluate for extravasation given the previously administered IV contrast the patient's hemodynamic stability and relatively stable hemoglobin we will defer this to the morning the patient has to see care team once again to coordinate outpatient follow up and is not yet completely medically cleared. Plan for overnight and into the morning. Repeat CBC for a.m., 07:00 CT angio to evaluate for extravasation, possibly surgical consultation and/or IR if there was evidence of extravasation though this is unlikely to require embolization patient may need medical and/or surgical observation. No indication for incision and drainage or other invasive treatment at this time we will continue to monitor. He has no signs of active alcohol withdrawal at this time I have put in prn Valium as needed 8:12 AM 01/20/2025 (Jamee Wiley NP): Physician observation continued, no overnight events reported by nursing. Will place orders for repeat CBC and CT A/P with contrast.+ HERNANDEZ Wiley: CT A/P with contrast notable for no extravasation or evidence of expanding hematoma, H&H stable. Patient can be medically cleared at this time for detox placement. Time: 15:39 Date: 01/21/25 Provider: Junior Hill MD Physician observation ended at 15:39 hours. H&H on 01/21/2025 at 12:37 hours was 12.6 and 39.7 which is a drop from 13.8 and 42.5 but not significant enough to require intervention. Patient was evaluated by the CARE team. Patient has been accepted at the [facility], accepting attending is Dr. Bernadine Palmer. Patient will be transferred by ambulance. Medications Administered Discontinued Medications Generic Name Dose Route Start Last Admin Trade Name Alie PRN Reason Stop Dose Admin Acetaminophen 975 mg 01/19/25 19:36 01/19/25 19:54 Acetaminophen 325 Mg Tablet PO 01/19/25 19:37 975 mg ONCE ONE Administration Acetaminophen 975 mg 01/20/25 00:18 01/20/25 01:00 Acetaminophen 325 Mg Tablet PO 01/20/25 00:19 975 mg ONCE ONE Administration Acetaminophen 650 mg 01/20/25 17:13 01/20/25 17:26 Acetaminophen 325 Mg Tablet PO 01/20/25 17:14 650 mg ONCE ONE Administration Buprenorphine/Naloxone 1 film 01/19/25 21:00 01/21/25 08:40 Buprenorphine/Naloxone 8/2 Mg Film SUBLINGUAL 1 film TID NICANOR Administration Clonidine HCl 0.2 mg 01/19/25 21:00 01/21/25 08:40 Clonidine Hcl 0.2 Mg Tablet PO 0.2 mg BID NICANOR Administration Protocol Diazepam 10 mg 01/19/25 17:20 01/19/25 17:36 Diazepam 5 Mg Tablet PO 01/19/25 17:21 10 mg ONCE ONE Administration Diazepam 6 mg 01/19/25 23:56 01/20/25 04:32 Diazepam 2 Mg Tablet PO 6 mg ONCE PRN Administration Alcohol Withdrawal Diazepam 5 mg 01/20/25 06:36 01/20/25 06:41 Diazepam 5 Mg Tablet PO 01/20/25 06:37 5 mg ONCE ONE Administration Diazepam 8 mg 01/20/25 08:52 01/20/25 09:04 Diazepam 2 Mg Tablet PO 01/20/25 08:53 8 mg ONCE ONE Administration Diazepam 6 mg 01/20/25 13:02 01/20/25 13:08 Diazepam 2 Mg Tablet PO 01/20/25 13:03 6 mg ONCE ONE Administration Diazepam 6 mg 01/20/25 16:50 01/20/25 17:26 Diazepam 2 Mg Tablet PO 01/20/25 16:51 6 mg ONCE ONE Administration Divalproex Sodium 2,000 mg 01/19/25 21:00 01/20/25 21:17 Divalproex Sodium Er 500 Mg Tab.Er.24h PO 2,000 mg BEDTIME NICANOR Administration Famotidine 20 mg 01/19/25 12:42 01/19/25 12:50 Famotidine/Pf 20 Mg/2 Ml Vial IVPUSH 01/19/25 12:43 20 mg ONCE ONE Administration Fluticasone/Vilanterol 1 puff 01/20/25 08:00 01/21/25 08:19 Fluticasone/Vilanterol 200/25 Blst.W.Dev INHALE 1 puff RDAILY NICANOR Administration Folic Acid 1 mg 01/19/25 11:35 01/19/25 11:58 Folic Acid 1 Mg Tablet PO 01/19/25 11:36 1 mg ONCE ONE Administration Folic Acid 1 mg 01/20/25 09:00 01/21/25 08:40 Folic Acid 1 Mg Tablet PO 1 mg DAILY NICANOR Administration Guaifenesin 600 mg 01/19/25 21:00 01/21/25 08:39 Guaifenesin La 600 Mg Tab.Er.12h PO 600 mg BID NICANOR Administration Hydroxyzine HCl 50 mg 01/19/25 20:38 01/19/25 21:22 Hydroxyzine Hcl 50 Mg Tablet PO 50 mg TID PRN Administration Anxiety Sodium Chloride 1,000 mls @ 999 mls/hr 01/19/25 11:45 01/19/25 14:56 Ns IV 01/19/25 12:45 Infused .Q1H1M NICANOR Infusion Thiamine HCl 100 mg/ Sodium 101 mls @ 202 mls/hr 01/19/25 11:35 01/19/25 12:36 Chloride IV 01/19/25 12:04 Infused ONCE ONE Infusion Iohexol 100 ml 01/19/25 13:21 01/19/25 13:21 Iohexol 350 Mg/Ml 100 Ml Infus..Btl IV 01/19/25 13:22 85 ml ONCE ONE Administration Iohexol 100 ml 01/20/25 08:20 01/20/25 08:21 Iohexol 350 Mg/Ml 100 Ml Infus..Btl IV 01/20/25 08:21 80 ml ONCE ONE Administration Lidocaine HCl 1 appl 01/20/25 00:46 01/20/25 01:01 Lidocaine 4 % Cream Kit TOPICAL 01/20/25 00:47 1 appl ONCE ONE Administration Protocol Lorazepam 1 mg 01/19/25 11:35 01/19/25 11:58 Lorazepam 1 Mg Tablet PO 01/19/25 11:36 1 mg ONCE ONE Administration Lorazepam 2 mg 01/20/25 21:28 01/21/25 13:04 Lorazepam 1 Mg Tablet PO 2 mg Q4H PRN Administration Alcohol Withdrawal Losartan Potassium 50 mg 01/20/25 09:00 01/21/25 08:39 Losartan Potassium 50 Mg Tablet PO 50 mg DAILY NICANOR Administration Protocol Melatonin 6 mg 01/19/25 21:03 01/20/25 22:20 Melatonin 3 Mg Tablet PO 6 mg BEDTIME PRN Administration Sleep Mirtazapine 7.5 mg 01/19/25 21:00 01/20/25 21:17 Mirtazapine 7.5 Mg Tablet PO 7.5 mg BEDTIME NICANOR Administration Multivitamins/Vitamin C 1 tab 01/20/25 09:00 01/21/25 08:40 Multivitamin Tablet PO 1 tab DAILY NICANOR Administration Ondansetron HCl 4 mg 01/19/25 19:36 01/19/25 19:54 Ondansetron Odt 4 Mg Tab.Rapdis TRANSLINGU 01/19/25 19:37 4 mg ONCE ONE Administration Oxycodone HCl 5 mg 01/20/25 00:46 01/20/25 01:01 Oxycodone Hcl Immed Release 5 Mg Tablet PO 01/20/25 00:47 5 mg ONCE ONE Administration Paroxetine HCl 20 mg 01/19/25 21:00 01/20/25 21:18 Paroxetine Hcl 20 Mg Tablet PO 20 mg BEDTIME NICANOR Administration Pyridoxine HCl 50 mg 01/20/25 09:00 01/21/25 08:46 Pyridoxine Hcl (Vitamin B6) 50 Mg Tablet PO 50 mg DAILY NICANOR Administration Quetiapine Fumarate 25 mg 01/19/25 21:00 01/20/25 21:18 Quetiapine Fumarate 25 Mg Tablet PO 25 mg BEDTIME NICANOR Administration Thiamine HCl 100 mg 01/20/25 09:00 01/21/25 08:40 Thiamine Hcl 100 Mg Tablet PO 100 mg DAILY NICANOR Administration Procedures Procedure Narrative Procedure Narrative: EMERGENCY ULTRASOUND INTERPRETATION- Limited skin and soft tissue [This study was ordered, performed, and interpreted by myself. The study reveals: Impression: ?Large collection within the left upper abdominal rectus muscle appears to have internal echoes and there was no obvious visible pulsatile or other vascular flow seen on color Doppler. [Indication: Swelling and pain left upper quadrant Skin: ?Findings above Performed by: ?Andrew Hidalgo MD ?Images were stored ] Medical Decision Making Medical Decision Making [facility] Narrative: This is a 69-year-old male presented hospital today for evaluation of left-sided abdominal pain. He has history of alcohol use disorder. He is also wants evaluation for detox resources. We will plan to obtain abdominal lab work on the patient including a CBC CMP lipase. Magnesium level will be obtained due to alcohol usage. We will plan to give patient a bolus IV fluid. CT abdomen and pelvis will be obtained. The patient does have significant tenderness over the left upper quadrant area. This may be pancreatitis in nature. May be a colonic mass. Or this could be alcoholic gastritis. Patient is requesting Ativan for his anxiety. We will plan to give him a dose of p.o. Ativan here. Thiamine and folic acid will be given as well. Patient has a rectus sheath hematoma on CT imaging. Patient's hemoglobin is appropriate at 14.4 no sign of tachycardic hypotension. Chemistries unremarkable, patient's liver function tests did show transaminitis consistent with alcohol use disorder. U tox was positive for buprenorphine, barbiturates and marijuana. Patient's ethanol level is elevated at 343. We will plan to consult rn recovery at this time. We will plan to put a bed search out for MD detox program. Differential Diagnosis Differential Diagnoses: The differential diagnosis associated with the presentation includes Alcoholic gastritis, pancreatitis, colonic mass, pancreatic mass, hepatitis, hypomagnesemia Consult Healthcare Provider Management of the patient was discussed with: Base Wad Operator Adjuster (middle school sports coach) Lab Data [facility] Lab Attestation statement: I reviewed the patient's lab results. 01/21/25 12:37 01/19/25 11:57 Labs: Lab Results 01/19/25 01/19/25 01/19/25 Range/Units 11:57 12:06 23:08 WBC 5.5 (4.8-10.8) X10*3/uL RBC 4.64 (4.60-5.80) X10*6/uL Hgb 14.4 (14.0-18.0) g/dl Hct 44.4 (42.0-52.0) % MCV 95.7 (80.0-98.0) fL MCH 31.0 (27.0-33.0) pg MCHC 32.4 (31.0-36.0) g/dl RDW 14.2 (11.0-16.0) % Plt Count 184 D (160-400) X10*3/uL MPV 10.2 (9.4-12.4) fL Immature Gran % (Auto) 0.4 (0.0-0.4) % Neut % (Auto) 30.9 L (45-73) % Lymph % (Auto) 54.6 H (20-40) % [place] % (Auto) 11.0 (2-11) % Eos % (Auto) 1.6 (0-4) % Baso % (Auto) 1.5 (0-2) % Lymph # (Auto) 3.0 (1.2-4.9) X10*3/uL [place] # (Auto) 0.6 (0.1-1.2) X10*3/uL Eos # (Auto) 0.1 (0.0-0.4) X10*3/uL Baso # (Auto) 0.1 (0.0-0.2) X10*3/uL Abs Immat Gran (auto) 0.02 (0.00-0.03) X10*3/uL Absolute Neuts (auto) 1.7 L (2.0-8.3) x10*3/uL Absolute Nucleated RBC 0.000 (0.0-0.012) X10*3/uL Nucleated RBC % (auto) 0.0 (0.0-0.2) /100WBC PT (11.2-13.5) SEC INR (0.9-1.1) APTT (26.7-34.1) SEC Sodium 143 (135-145) mmol/L Potassium 3.7 (3.3-5.1) mmol/L Chloride 104 (96-108) mmol/L Carbon Dioxide 26 (22-29) mmol/L Anion Gap 17 (12-20) BUN 4 L (9-16) mg/dL Creatinine 0.63 (0.5-1.4) mg/dL Estim Creat Clear Calc 153.8 Estimated GFR > 60 Random Glucose 104 (60-115) mg/dL Calcium 8.4 D (8.4-10.2) mg/dL Magnesium 2.0 (1.6-2.6) mg/dL Total Bilirubin 0.5 (0.0-1.0) mg/dL AST 122 H (5-37) U/L ALT 53 H (0-40) U/L Alkaline Phosphatase 157 H (39-117) U/L Total Protein 7.7 (6.5-8.0) g/dL Albumin 3.8 (3.5-5.0) g/dL Lipase 18 (8-78) U/L Urine Color Dark Yellow Urine Appearance Clear Urine pH 5.5 (5.0-9.0) Ur Specific [place] 1.020 (1.005-1.025) Urine Protein Trace (Neg-Trace) mg/dL Urine Glucose (UA) Negative (Negative) mg/dL Urine Ketones Negative (Negative) mg/dL Urine Blood Negative (Negative) Urine Nitrite Negative (Negative) Ur Leukocyte Esterase Negative (Negative) Urine Opiates Screen Not Detected (Not Detect) Ur Buprenorphine Scrn Positive H (Not Detect) ng/mL Ur Oxycodone Screen Not Detected (Not Detect) ng/mL Urine Methadone Screen Not Detected (Not Detect) ng/mL Urine Fentanyl Screen Not Detected (Not Detect) Ur Barbiturates Screen POSITIVE H (Not Detect) Ur Phencyclidine Scrn Not Detected (Not Detect) Ur Amphetamines Screen Not Detected (Not Detect) U Benzodiazepines Scrn Not Detected (Not Detect) Urine Cocaine Screen Not Detected (Not Detect) U Marijuana (THC) Screen POSITIVE H (Not Detect) Ethyl Alcohol 343 H* mg/dL COVID-19 (KIRSTEN) Positive A (Negative) COVID-19 Clin Com See Note Influenza Type A (MAUREEN) Negative (Negative) Influenza Type A (PCR) (Negative) Influenza Type B (MAUREEN) Negative (Negative) Influenza Type B (PCR) (Negative) Influenza A & B Note See Note RSV RNA Qual (PCR) (Negative) SARS-CoV-2 RNA (RT-PCR) (Negative) 01/19/25 01/20/25 01/20/25 Range/Units 23:38 04:14 09:01 WBC 5.5 4.9 4.6 L (4.8-10.8) X10*3/uL RBC 4.23 L 4.55 L 4.44 L (4.60-5.80) X10*6/uL Hgb 13.0 L 13.8 L 13.8 L (14.0-18.0) g/dl Hct 40.0 L 43.1 42.5 (42.0-52.0) % MCV 94.6 94.7 95.7 (80.0-98.0) fL MCH 30.7 30.3 31.1 (27.0-33.0) pg MCHC 32.5 32.0 32.5 (31.0-36.0) g/dl RDW 14.1 13.9 13.7 (11.0-16.0) % Plt Count 168 170 139 L (160-400) X10*3/uL MPV 9.8 9.9 9.9 (9.4-12.4) fL Immature Gran % (Auto) 0.4 0.4 0.4 (0.0-0.4) % Neut % (Auto) 55.5 52.8 57.9 (45-73) % Lymph % (Auto) 33.2 35.7 28.1 (20-40) % [place] % (Auto) 8.9 9.3 12.1 H (2-11) % Eos % (Auto) 1.1 1.0 0.9 (0-4) % Baso % (Auto) 0.9 0.8 0.6 (0-2) % Lymph # (Auto) 1.8 1.8 1.3 (1.2-4.9) X10*3/uL [place] # (Auto) 0.5 0.5 0.6 (0.1-1.2) X10*3/uL Eos # (Auto) 0.1 0.1 0.0 (0.0-0.4) X10*3/uL Baso # (Auto) 0.1 0.0 0.0 (0.0-0.2) X10*3/uL Abs Immat Gran (auto) 0.02 0.02 0.02 (0.00-0.03) X10*3/uL Absolute Neuts (auto) 3.1 2.6 2.7 (2.0-8.3) x10*3/uL Absolute Nucleated RBC 0.000 0.000 0.000 (0.0-0.012) X10*3/uL Nucleated RBC % (auto) 0.0 0.0 0.0 (0.0-0.2) /100WBC PT 13.8 H (11.2-13.5) SEC INR 1.1 (0.9-1.1) APTT 29.0 (26.7-34.1) SEC Sodium (135-145) mmol/L Potassium (3.3-5.1) mmol/L Chloride (96-108) mmol/L Carbon Dioxide (22-29) mmol/L Anion Gap (12-20) BUN (9-16) mg/dL Creatinine (0.5-1.4) mg/dL Estim Creat Clear Calc Estimated GFR Random Glucose (60-115) mg/dL Calcium (8.4-10.2) mg/dL Magnesium (1.6-2.6) mg/dL Total Bilirubin (0.0-1.0) mg/dL AST (5-37) U/L ALT (0-40) U/L Alkaline Phosphatase (39-117) U/L Total Protein (6.5-8.0) g/dL Albumin (3.5-5.0) g/dL Lipase (8-78) U/L Urine Color Urine Appearance Urine pH (5.0-9.0) Ur Specific [place] (1.005-1.025) Urine Protein (Neg-Trace) mg/dL Urine Glucose (UA) (Negative) mg/dL Urine Ketones (Negative) mg/dL Urine Blood (Negative) Urine Nitrite (Negative) Ur Leukocyte Esterase (Negative) Urine Opiates Screen (Not Detect) Ur Buprenorphine Scrn (Not Detect) ng/mL Ur Oxycodone Screen (Not Detect) ng/mL Urine Methadone Screen (Not Detect) ng/mL Urine Fentanyl Screen (Not Detect) Ur Barbiturates Screen (Not Detect) Ur Phencyclidine Scrn (Not Detect) Ur Amphetamines Screen (Not Detect) U Benzodiazepines Scrn (Not Detect) Urine Cocaine Screen (Not Detect) U Marijuana (THC) Screen (Not Detect) Ethyl Alcohol mg/dL COVID-19 (KIRSTEN) (Negative) COVID-19 Clin Com Influenza Type A (MAUREEN) (Negative) Influenza Type A (PCR) (Negative) Influenza Type B (MAUREEN) (Negative) Influenza Type B (PCR) (Negative) Influenza A & B Note RSV RNA Qual (PCR) (Negative) SARS-CoV-2 RNA (RT-PCR) (Negative) 01/20/25 01/20/25 01/21/25 Range/Units 13:42 19:27 12:37 WBC 4.1 L (4.8-10.8) X10*3/uL RBC 4.13 L (4.60-5.80) X10*6/uL Hgb 12.6 L (14.0-18.0) g/dl Hct 39.7 L (42.0-52.0) % MCV 96.1 (80.0-98.0) fL MCH 30.5 (27.0-33.0) pg MCHC 31.7 (31.0-36.0) g/dl RDW 14.0 (11.0-16.0) % Plt Count 131 L (160-400) X10*3/uL MPV 9.9 (9.4-12.4) fL Immature Gran % (Auto) 0.2 (0.0-0.4) % Neut % (Auto) 43.7 L (45-73) % Lymph % (Auto) 42.0 H (20-40) % [place] % (Auto) 10.5 (2-11) % Eos % (Auto) 2.9 (0-4) % Baso % (Auto) 0.7 (0-2) % Lymph # (Auto) 1.7 (1.2-4.9) X10*3/uL [place] # (Auto) 0.4 (0.1-1.2) X10*3/uL Eos # (Auto) 0.1 (0.0-0.4) X10*3/uL Baso # (Auto) 0.0 (0.0-0.2) X10*3/uL Abs Immat Gran (auto) 0.01 (0.00-0.03) X10*3/uL Absolute Neuts (auto) 1.8 L (2.0-8.3) x10*3/uL Absolute Nucleated RBC 0.000 (0.0-0.012) X10*3/uL Nucleated RBC % (auto) 0.0 (0.0-0.2) /100WBC PT (11.2-13.5) SEC INR (0.9-1.1) APTT (26.7-34.1) SEC Sodium (135-145) mmol/L Potassium (3.3-5.1) mmol/L Chloride (96-108) mmol/L Carbon Dioxide (22-29) mmol/L Anion Gap (12-20) BUN (9-16) mg/dL Creatinine (0.5-1.4) mg/dL Estim Creat Clear Calc Estimated GFR Random Glucose (60-115) mg/dL Calcium (8.4-10.2) mg/dL Magnesium (1.6-2.6) mg/dL Total Bilirubin (0.0-1.0) mg/dL AST (5-37) U/L ALT (0-40) U/L Alkaline Phosphatase (39-117) U/L Total Protein (6.5-8.0) g/dL Albumin (3.5-5.0) g/dL Lipase (8-78) U/L Urine Color Urine Appearance Urine pH (5.0-9.0) Ur Specific [place] (1.005-1.025) Urine Protein (Neg-Trace) mg/dL Urine Glucose (UA) (Negative) mg/dL Urine Ketones (Negative) mg/dL Urine Blood (Negative) Urine Nitrite (Negative) Ur Leukocyte Esterase (Negative) Urine Opiates Screen (Not Detect) Ur Buprenorphine Scrn (Not Detect) ng/mL Ur Oxycodone Screen (Not Detect) ng/mL Urine Methadone Screen (Not Detect) ng/mL Urine Fentanyl Screen (Not Detect) Ur Barbiturates Screen (Not Detect) Ur Phencyclidine Scrn (Not Detect) Ur Amphetamines Screen (Not Detect) U Benzodiazepines Scrn (Not Detect) Urine Cocaine Screen (Not Detect) U Marijuana (THC) Screen (Not Detect) Ethyl Alcohol < 10 mg/dL COVID-19 (KIRSTEN) (Negative) COVID-19 Clin Com Influenza Type A (MAUREEN) (Negative) Influenza Type A (PCR) NEGATIVE (Negative) Influenza Type B (MAUREEN) (Negative) Influenza Type B (PCR) NEGATIVE (Negative) Influenza A & B Note RSV RNA Qual (PCR) NEGATIVE (Negative) SARS-CoV-2 RNA (RT-PCR) NEGATIVE (Negative) Independent Interpretation I performed an independent interpretation of an: CT Scan Radiology Impression Discussion of test interpretation with radiology: I have reviewed the radiologist's reading. Critical Care Time Critical Care Time Critical Care Time: Yes Total Critical Care Time: 35 Attestation: Critical Care: The patient was critically ill with a high probability of imminent or life threatening deterioration. I spent greater than 30 minutes of discontinuous time evaluating the patient,delivering critical care at the bedside, discussing and evaluating pertinent data with consultants. Critical care time does not include time spent performing separately billable procedures or teaching. Total time spent performing critical care was 35 minutes. Discharge Plan Discharge Clinical Impression: Alcohol use disorder, Hematoma of rectus sheath Patient Disposition: [facility] Transfer Details: [facility], accepting attending Dr. Bernadine Palmer Prescriptions: No Action multivitamin Tablet 1 tab PO DAILY thiamine HCl (vitamin B1) 100 mg Tablet 100 mg PO DAILY hydroxyzine HCl 50 mg Tablet 100 mg PO TID PRN (Reason: Anxiety) paroxetine HCl 20 mg Tablet 20 mg PO BEDTIME divalproex 500 mg Tablet Extended Release 24 Hr 2,000 mg PO BEDTIME fluticasone propion-salmeterol [Advair Diskus] 500-50 mcg/dose Blister With Device 1 inh INHALATION BID pyridoxine (vitamin B6) 50 mg Tablet 50 mg PO DAILY albuterol sulfate 90 mcg/actuation Hfa Aerosol Inhaler 2 puff INHALATION Q6H PRN (Reason: Shortness Of Breath Or Wheezing) mirtazapine 7.5 mg Tablet 7.5 mg PO BEDTIME melatonin 5 mg Tablet 5 mg PO BEDTIME PRN (Reason: Sleep) quetiapine 25 mg Tablet 25 mg PO BEDTIME Qty: 3 0RF clonidine HCl 0.2 mg Tablet 0.2 mg PO BID Qty: 60 0RF Protocol: Hold for SBP< HOLD for SBP < : 90 losartan 50 mg tablet 50 mg PO DAILY Protocol: Hold for SBP< HOLD for SBP < : 90 buprenorphine-naloxone [Suboxone] 8-2 mg Film 1 film TID lorazepam 1 mg Tablet 1 mg PO BEDTIME PRN (Reason: Anxiety) Interventions: Acute Care Transfer Worksheet (ED) Last Done: 01/21/25 16:20 Discharge Date/Time: 01/21/25 16:25 Print Language: Algerian
[2025-01-19 11:22] VITALS: BP 137/80; PULSE 97; RESP 18; TEMP 37.2; O2SAT 94; BMI 41.0
[2025-01-19 12:01] LABS: MANUAL DIFF FLAG NO
[2025-01-19] MEDS: Thiamine HCL 100 MG in 0.9 % Sodium Chloride 100 ML 202 MG IV (12:01)
[2025-01-19 12:03] LABS: Hematocrit 44.4 % (42.0-52.0); Hemoglobin 14.4 g/dl (14.0-18.0); Imm Gran Abs Auto 0.02 X10*3/uL (0.00-0.03); Imm Gran Pct Auto 0.4 % (0.0-0.4); Lymphocytes Absolute Auto 3.0 X10*3/uL (1.2-4.9); Mean Corpuscular HGB Conc 32.4 g/dl (31.0-36.0); Mean Corpuscular Hemoglobin 31.0 pg (27.0-33.0); Mean Corpuscular Volume 95.7 fL (80.0-98.0); NRBC Abs Auto 0.000 X10*3/uL (0.0-0.012); NRBC Pct Auto 0.0 /100WBC (0.0-0.2); Red Blood Count 4.64 X10*6/uL (4.60-5.80); White Blood Count 5.5 X10*3/uL (4.8-10.8)
[2025-01-19 12:19] LABS: Alanine Aminotransferase 53 U/L (0-40); Albumin Level 3.8 g/dL (3.5-5.0); Alkaline Phosphatase 157 U/L (39-117); Anion Gap 17 (12-20); Aspartate Amino Transferase 122 U/L (5-37); Blood Urea Nitrogen 4 mg/dL (9-16); Calcium 8.4 mg/dL (8.4-10.2); Carbon Dioxide 26 mmol/L (22-29); Chloride 104 mmol/L (96-108); Creatinine Clr Calc Pharmacy 153.8; Estimated Glomerular Filt Rate > 60; Lipase 18 U/L (8-78); Magnesium 2.0 mg/dL (1.6-2.6); Potassium 3.7 mmol/L (3.3-5.1); Sodium 143 mmol/L (135-145); Total Protein 7.7 g/dL (6.5-8.0)
[2025-01-19 12:30] LABS: Platelet Count 184 X10*3/uL (160-400)
[2025-01-19 12:47] LABS: Cannabinoid Screen Urine POSITIVE (Not Detect)
[2025-01-19 13:00] LABS: Appearance Urine Clear; Glucose Urine UA Negative (Negative); PH 5.5 (5.0-9.0); Specific Gravity - Urine 1.020 (1.005-1.025)
[2025-01-19] MEDS: iohexoL 350 MG/ML 100 ML INFUS..BTL IV (13:21)
[2025-01-19 15:30] VITALS: BP 109/53; PULSE 100; RESP 23; O2SAT 95
[2025-01-19 17:38] VITALS: BP 139/64; PULSE 99; RESP 18; TEMP 36.6; O2SAT 95
--- NOTE | 2025-01-19 18:30 | PC.NURSE ---
Resting comfortably in abner, reports improvement of withdrawal symptoms after po valium
[2025-01-19 19:18] VITALS: BP 136/65; PULSE 100; RESP 18; TEMP 36.9; O2SAT 93
--- NOTE | 2025-01-19 19:21 | PC.NURSE ---
pt had a couple bites of his cheeseburger for dinner and refused the rest. also refusing for stretcher side rails to be put up d/t his claustrophobia. patient appears comfortable at this time, nad.
--- NOTE | 2025-01-19 19:53 | ECG_ITS ---
Test Reason : MED CLEARANCE Blood Pressure : */* mmHG Vent. Rate : 98 BPM Atrial Rate : 98 BPM P-R Int : 170 ms QRS Dur : 80 ms QT Int : 346 ms P-R-T Axes : 56 3 39 degrees QTcB Int : 441 ms Normal sinus rhythm Possible Left atrial enlargement Cannot rule out Inferior infarct , age undetermined Possible Anterior infarct , age undetermined Abnormal ECG When compared with ECG of 23-Sep-2023 16:48, Poor R waves progression present now Referred By: Librety Ferreira Electronically Signed By: Alvarez Reyna
--- NOTE | 2025-01-19 20:32 | PC.NURSE ---
Addendum entered by Day Carrillo RN 01/19/25 20:38: requested for suboxone dosage to be verified with patient. entered into med rec as patient stated. Original Note: med list done with patient who confirmed meds and dosages. discontinued meds as patient stated he no longer takes those. patient did state he takes suboxone but no record of this. will notify .
--- NOTE | 2025-01-19 21:14 | MHC.CARE ---
Pt is a [facility] inpatient bedsearch at this time.
--- NOTE | 2025-01-19 22:11 | MHC.CARE ---
RAD Team faxed assessment and medical to [facility] and [facility] for review. Bed search exhausted for the night
[2025-01-19 23:18] VITALS: BP 146/79; PULSE 92; RESP 16; O2SAT 96
[2025-01-19 23:19] LABS: COVID-19 Test Positive (Negative); IDNOW Serial# 6674DD1D
--- NOTE | 2025-01-19 23:19 | PC.NURSE ---
call received from Gary clinical coordinator at [facility] in [place] reporting the physician at this facility is concerned about the CT scan results and would appreciate a surgical consult prior to representing the patient in AM. primary provider Dr. Hidalgo made aware of patients situation and per MD, would like to repeat labs and do a bedside U/S. he is at bedside now.
[2025-01-19 23:26] LABS: IDNOW Serial# 08D9AD1C; Influenza B2 Negative (Negative)
[2025-01-19 23:43] LABS: Hematocrit 40.0 % (42.0-52.0); Hemoglobin 13.0 g/dl (14.0-18.0); Imm Gran Abs Auto 0.02 X10*3/uL (0.00-0.03); Imm Gran Pct Auto 0.4 % (0.0-0.4); Lymphocytes Absolute Auto 1.8 X10*3/uL (1.2-4.9); MANUAL DIFF FLAG NO; Mean Corpuscular HGB Conc 32.5 g/dl (31.0-36.0); Mean Corpuscular Hemoglobin 30.7 pg (27.0-33.0); Mean Corpuscular Volume 94.6 fL (80.0-98.0); NRBC Abs Auto 0.000 X10*3/uL (0.0-0.012); NRBC Pct Auto 0.0 /100WBC (0.0-0.2); Platelet Count 168 X10*3/uL (160-400); Red Blood Count 4.23 X10*6/uL (4.60-5.80); White Blood Count 5.5 X10*3/uL (4.8-10.8)
[2025-01-19 23:51] LABS: INTERNATIONAL NORM RATIO 1.1 (0.9-1.1); Prothrombin Time 13.8 SEC (11.2-13.5)
[2025-01-19 23:53] LABS: Partial Thromboplastin Time 29.0 SEC (26.7-34.1)
[2025-01-20] MEDS: oxyCODONE HCl Immed Release 5 MG TABLET PO (01:01)
[2025-01-20] MEDS: Lidocaine 4 % Cream KIT 1 APPL TOPICAL (01:01)
[2025-01-20 04:09] VITALS: BP 122/50; PULSE 95; RESP 24; TEMP 36.4; O2SAT 95
[2025-01-20 04:18] LABS: Hematocrit 43.1 % (42.0-52.0); Hemoglobin 13.8 g/dl (14.0-18.0); Imm Gran Abs Auto 0.02 X10*3/uL (0.00-0.03); Imm Gran Pct Auto 0.4 % (0.0-0.4); Lymphocytes Absolute Auto 1.8 X10*3/uL (1.2-4.9); MANUAL DIFF FLAG NO; Mean Corpuscular HGB Conc 32.0 g/dl (31.0-36.0); Mean Corpuscular Hemoglobin 30.3 pg (27.0-33.0); Mean Corpuscular Volume 94.7 fL (80.0-98.0); NRBC Abs Auto 0.000 X10*3/uL (0.0-0.012); NRBC Pct Auto 0.0 /100WBC (0.0-0.2); Platelet Count 170 X10*3/uL (160-400); Red Blood Count 4.55 X10*6/uL (4.60-5.80); White Blood Count 4.9 X10*3/uL (4.8-10.8)
--- NOTE | 2025-01-20 04:34 | PC.NURSE ---
pt woke up requested to go to the bathroom. upon returning stated he is feeling more shaky and anxious, ciwa 8, prn given.
--- NOTE | 2025-01-20 06:34 | PC.NURSE ---
ciwa remains a 8 after receiving prn valium. per MD Tamayo verbal order to give 5mg po Valium. pt moved to ed7 for private room/bathroom as he is covid+.
--- NOTE | 2025-01-20 07:08 | PC.NURSE ---
reportfrdiogo Aponte, pt sleeping in bed, nad
[2025-01-20] MEDS: iohexoL 350 MG/ML 100 ML INFUS..BTL IV (08:21)
[2025-01-20] MEDS: guaiFENesin LA 600 MG TAB.ER.12H PO ×2 (08:22→21:19)
[2025-01-20 08:26] VITALS: BP 157/84
[2025-01-20 08:30] VITALS: BP 157/84; PULSE 87; RESP 18; O2SAT 96
[2025-01-20 09:04] LABS: MANUAL DIFF FLAG NO
[2025-01-20] MEDS: Fluticasone/Vilanterol 200/25 BLST.W.DEV 1 PUFF INHALE (09:04)
[2025-01-20 09:07] LABS: Hematocrit 42.5 % (42.0-52.0); Hemoglobin 13.8 g/dl (14.0-18.0); Imm Gran Abs Auto 0.02 X10*3/uL (0.00-0.03); Imm Gran Pct Auto 0.4 % (0.0-0.4); Lymphocytes Absolute Auto 1.3 X10*3/uL (1.2-4.9); Mean Corpuscular HGB Conc 32.5 g/dl (31.0-36.0); Mean Corpuscular Hemoglobin 31.1 pg (27.0-33.0); Mean Corpuscular Volume 95.7 fL (80.0-98.0); NRBC Abs Auto 0.000 X10*3/uL (0.0-0.012); NRBC Pct Auto 0.0 /100WBC (0.0-0.2); Platelet Count 139 X10*3/uL (160-400); Red Blood Count 4.44 X10*6/uL (4.60-5.80); White Blood Count 4.6 X10*3/uL (4.8-10.8)
[2025-01-20 13:46] VITALS: BP 123/51; PULSE 85; RESP 22; TEMP 36.5; O2SAT 97
[2025-01-20 14:24] LABS: Resp Syncy Virus RNA Qual PCR NEGATIVE (Negative); SARS COV2 PCR INHOUSE NEGATIVE (Negative)
--- NOTE | 2025-01-20 18:24 | PC.NURSE ---
[facility] admissions requesting new ETOH level, order placed.
--- NOTE | 2025-01-20 18:57 | PHA.MEDREC ---
Addendum entered by Simon Goldsmith RPh 01/20/25 19:28: No pharmacy claims for clonidine, mirtazapine, and quetiapine however pt confirmed he is on this. Addendum entered by Simon Goldsmith RPh 01/20/25 19:22: Reviewed by [facility] Original Note: Pharmacy Consult ? Medication Reconciliation Pharmacy has reviewed the medication reconciliation done by nursing. spoke to patient to confirm med list. [facility] Patent states he is not taking Folic acid 1 mg Guaifenesin 600 mg, and Furosemide 40 mg.
[2025-01-20 19:29] VITALS: BP 107/66; PULSE 94; TEMP 36.8; O2SAT 94
[2025-01-20 21:18] VITALS: BP 127/82
[2025-01-21 05:26] VITALS: BP 124/73; PULSE 87; RESP 16; O2SAT 94
[2025-01-21 08:19] VITALS: PULSE 90; RESP 16; O2SAT 92
[2025-01-21] MEDS: Fluticasone/Vilanterol 200/25 BLST.W.DEV 1 PUFF INHALE (08:19)
[2025-01-21 08:38] VITALS: BP 114/73; PULSE 90; RESP 16; TEMP 36.7; O2SAT 91
[2025-01-21 08:39] VITALS: BP 114/73
[2025-01-21] MEDS: guaiFENesin LA 600 MG TAB.ER.12H PO (08:39)
--- NOTE | 2025-01-21 11:55 | PC.NURSE ---
Pt will be accepted to [facility] pending CBC w/diff result.
[2025-01-21 12:42] LABS: MANUAL DIFF FLAG NO
[2025-01-21 12:44] LABS: Hematocrit 39.7 % (42.0-52.0); Hemoglobin 12.6 g/dl (14.0-18.0); Imm Gran Abs Auto 0.01 X10*3/uL (0.00-0.03); Imm Gran Pct Auto 0.2 % (0.0-0.4); Lymphocytes Absolute Auto 1.7 X10*3/uL (1.2-4.9); Mean Corpuscular HGB Conc 31.7 g/dl (31.0-36.0); Mean Corpuscular Hemoglobin 30.5 pg (27.0-33.0); Mean Corpuscular Volume 96.1 fL (80.0-98.0); NRBC Abs Auto 0.000 X10*3/uL (0.0-0.012); NRBC Pct Auto 0.0 /100WBC (0.0-0.2); Platelet Count 131 X10*3/uL (160-400); Red Blood Count 4.13 X10*6/uL (4.60-5.80); White Blood Count 4.1 X10*3/uL (4.8-10.8)
--- NOTE | 2025-01-21 14:43 | MHC.CARE ---
Pt accepted to [facility] for today, ETA: SILVERIO, accepting is Dr. Bernadine Palmer, N2N: [phone]
--- NOTE | 2025-01-21 15:57 | PC.NURSE ---
Report given to Ling MAK @ [facility], questions answered. EMS arrived for transport. Pt placed on stretcher, transferred via ambulance to [place].
[2025-01-21 16:20] VITALS: BP 122/72; PULSE 89; RESP 18; TEMP 36.7; O2SAT 93
== END 2025-01-21 16:25 | disposition short-term general hospital (02) ==
PROVIDERS: Emergency Medicine; Registered Nurse Emergency; Emergency Provider Emergency Medicine Emergency Medical Services; PCP Internal Medicine; Referring Provider Student in an Organized Health Care Education/Training Program
DX: S30.11XA Contusion of abdominal wall, initial encounter (principal); F10.90 Alcohol use, unspecified, uncomplicated; Y90.8 Blood alcohol level of 240 mg/100 ml or more; K76.0 Fatty (change of) liver, not elsewhere classified; F41.0 Panic disorder [episodic paroxysmal anxiety]; Z03.818 Encounter for observation for suspected exposure to other biological agents ruled out; R14.0 Abdominal distension (gaseous); Z87.820 Personal history of traumatic brain injury; F17.200 Nicotine dependence, unspecified, uncomplicated; Z71.6 Tobacco abuse counseling; Z79.899 Other long term (current) drug therapy
CPT/HCPCS: 36415; 74174; 74177; 76705; 80053; 80307; 81003; 83690; 83735; 85025; 85610; 85730; 87502; 87635; 87637; 93005; 96360; 96361; 96365; 96374; 96375; 99285; J1308; J3411; Q9967; S9485

== ENCOUNTER → 2025-01-19 11:35 | Outpatient (BNV) | payer OTHER, MEDICARE, MEDICAID, SELFPAY | PROVIDERS: Emergency Provider Student in an Organized Health Care Education/Training Program; PCP Internal Medicine; Visit Provider Radiology Diagnostic Radiology | DX: M79.81 Nontraumatic hematoma of soft tissue (principal); K76.0 Fatty (change of) liver, not elsewhere classified; K86.89 Other specified diseases of pancreas | CPT/HCPCS: 74177 ==

== ENCOUNTER → 2025-01-19 19:53 | Outpatient (BNV) | payer OTHER, SELFPAY | PROVIDERS: Emergency Provider Emergency Medicine; PCP Internal Medicine; Visit Provider Internal Medicine Cardiovascular Disease | DX: R94.31 Abnormal electrocardiogram [ECG] [EKG] (principal); Z13.6 Encounter for screening for cardiovascular disorders | CPT/HCPCS: 93010 ==

== ENCOUNTER → 2025-01-20 07:00 | Outpatient (BNV) | payer OTHER, SELFPAY | PROVIDERS: Emergency Provider Emergency Medicine; PCP Internal Medicine; Visit Provider Radiology Diagnostic Radiology | DX: K62.5 Hemorrhage of anus and rectum (principal) | CPT/HCPCS: 74174 ==